=== PATIENT | female | born 1970 | race Caucasian/White ===

== ENCOUNTER → 2017-12-31 15:21 | Outpatient (CLI) | payer MEDICARE, SELFPAY ==
--- NOTE | 2017-12-31 15:23 | BI_ITS ---
MAMMOGRAPHY - BILATERAL SCREENING REASON FOR EXAM: Female, 47 years old. Routine annual screening examination. PERTINENT HISTORY: Non-contributory. TECHNIQUE: Digital bilateral breast darin (3D mammographic acquisition) in the CC and MLO projections. 2-D mediolateral oblique (MLO) and craniocaudad (CC) views of both breasts were obtained. CAD: Full Field Digital Mammography with Computer Added Detection was performed. COMPARISON: Comparison is made with prior study dated October 28, 2016 and October 28, 2015. FINDINGS: Breast Composition: There are scattered areas of fibroglandular density. There are no dominant masses or suspicious calcifications. No other significant abnormalities are identified. There has been no significant change since the prior study. BI/SCREENING MAMM (CAD), BILAT IMPRESSION: Stable bilateral screening mammogram. Yearly follow-up mammogram recommended. (A) ASSESSMENT CATEGORY: BIRADS Category 1: Negative. A letter regarding these results will be sent to the patient by the facility within 30 days. Approximately 10% of breast cancers are not detected by mammography. A normal mammogram should not delay biopsy of a clinically suspicious abnormality. [id number] Electronically Signed: Jhon Gonzalez MD at 8:12 EDT Tel [phone], Service support ,
== END ==
DX: Z12.31 Encounter for screening mammogram for malignant neoplasm of breast (principal)
CPT/HCPCS: 77063; 77067

== ENCOUNTER 2018-03-19 23:32 | Emergency (ER) | payer MEDICARE, SELFPAY ==
[2018-03-19 23:34] VITALS: BP 130/74; PULSE 81; RESP 16; TEMP 37.1; O2SAT 97; BMI 34.8
[2018-03-19 23:45] VITALS: BP 119/66; PULSE 77; RESP 12; O2SAT 96; O2SAT 97
--- NOTE | 2018-03-20 00:09 | RAD_ITS ---
STUDY: X-RAY CHEST REASON FOR EXAM: Female, 47 years old. Chest pain and shortness of breath TECHNIQUE: AP COMPARISON: 04/24/2017 FINDINGS: EKG leads project over the chest. The lungs are clear and expanded. There is no demonstrated pleural abnormality. Normal size heart. Normal mediastinum and dusty. Normal visualized pulmonary arteries. Normal visualized aortic arch and descending thoracic aorta. Normal visualized thoracic spine. Normal visualized ribs, clavicles, and shoulders. There is no demonstrated abnormality of the visualized soft tissue structures of the upper abdomen. RAD/Chest 1 View (Portable) IMPRESSION: Stable, nonacute portable x-ray examination of the chest. Electronically Signed: Gilmer Salgado MD at 0:36 EST , Service support ,
--- NOTE | 2018-03-20 00:09 | EKG12_ITS ---
Test Reason : RECURRENT CP,SOB Blood Pressure : / mmHG Vent. Rate : 077 BPM Atrial Rate : 077 BPM P-R Int : 140 ms QRS Dur : 084 ms QT Int : 382 ms P-R-T Axes : 026 -11 016 degrees QTc Int : 432 ms Normal sinus rhythm Normal ECG Confirmed by ONEAL PAZ, JAYCE ([id number]), news videotape editor JANINE IRELAND ([id number]) on 03/21/2018 1:53:24 PM Referred By: PARESH Confirmed By:JAYCE NO MD
--- NOTE | 2018-03-20 00:18 | ED.VISSUMM ---
- ER Visit Summary Date of Service: 03/20/18 Chief Complaint: Shortness of breath History of Present Illness: The patient is a 47 F presenting with shortness of breath. She states it started today. She also been having intermittent left-sided chest pain. This is worse with coughing. She denies fever. She has had a dry cough. She has a history of asthma. She states she does not currently have an inhaler. She has had no recent steroids. No history of past hospitalizations for asthma. She has history of hypertension, no other CAD risk factors. No PE/DVT risk factors. She is not a smoker. Physical Examination: Vitals are stable. Patient is afebrile. Alert no acute distress. HEENT exam is unremarkable. Neck is supple. Lungs are clear and equal bilaterally. Left chest tender to palpation with no crepitus Heart is regular rate and rhythm. Abdomen is soft nontender nondistended. Extremities are unremarkable. Skin is warm and dry. No focal neurologic deficit. Remainder of exam is unremarkable. Emergency Department Course and Treatment: Patient was given aspirin on arrival. She was given duoneb aerosol. EKG is sinus rate of 77 with no acute ischemic changes. Chest x-ray shows no acute process. CBC, chemistries unremarkable. Troponin is negative. D-dimer is negative. Delta troponin is negative. On repeat evaluation, patient is resting comfortably. She is given albuterol MDI for home. She is advised to follow-up with her primary care physician. Advised return to the ED for worsening complaints. Disposition: Discharge home Impression: Atypical chest pain This note was generated with Med Access dictation software. It may contain incorrect words, spelling, and punctuation that were not noted in review of the chart prior to signing ED Disposition - Plan for ED Patient: Chief Complaint: Shortness of Breath Instructions: ED Chest Pain Atypical Unkn Cause Referrals: Pawan Beltran,Salma Patterson [Primary Care Provider] -
--- NOTE | 2018-03-20 00:21 | ED.DCSUM_ITS ---
- ER Visit Summary Date of Service: 03/20/18 Chief Complaint: Shortness of breath History of Present Illness: The patient is a 47 F presenting with shortness of breath. She states it started today. She also been having intermittent left- sided chest pain. This is worse with coughing. She denies fever. She has had a dry cough. She has a history of asthma. She states she does not currently have an inhaler. She has had no recent steroids. No history of past hospitalizations for asthma. She has history of hypertension, no other CAD risk factors. No PE/DVT risk factors. She is not a smoker. Physical Examination: Vitals are stable. Patient is afebrile. Alert no acute distress. HEENT exam is unremarkable. Neck is supple. Lungs are clear and equal bilaterally. Left chest tender to palpation with no crepitus Heart is regular rate and rhythm. Abdomen is soft nontender nondistended. Extremities are unremarkable. Skin is warm and dry. No focal neurologic deficit. Remainder of exam is unremarkable. Emergency Department Course and Treatment: Patient was given aspirin on arrival. She was given duoneb aerosol. EKG is sinus rate of 77 with no acute ischemic changes. Chest x-ray shows no acute process. CBC, chemistries unremarkable. Troponin is negative. D-dimer is negative. Delta troponin is negative. On repeat evaluation, patient is resting comfortably. She is given albuterol MDI for home. She is advised to follow-up with her primary care physician. Advised return to the ED for worsening complaints. Disposition: Discharge home Impression: Atypical chest pain This note was generated with [employer] dictation software. It may contain incorrect words, spelling, and punctuation that were not noted in review of the chart prior to signing ED Disposition - Plan for ED Patient: Chief Complaint: Shortness of Breath Instructions: ED Chest Pain Atypical Unkn Cause Referrals: Pawan Beltran,Salma Patterson [Primary Care Provider] -
[2018-03-20 00:25] VITALS: O2SAT 95
[2018-03-20] MEDS: Aspirin 81 MG TAB.CHEW 324 MG PO (00:25)
[2018-03-20 00:28] VITALS: PULSE 78; RESP 18; O2SAT 98
[2018-03-20] MEDS: Ipratropium/Albuterol Sulfate 3 ML AMPUL.NEB INHALATION (00:28)
[2018-03-20 00:33] LABS: Absolute Lymphocyte Count 3.21 X10^3/ul (0.83-4.51); Absolute Neutrophil Count 5.2 X10^3/uL (2.0-7.7); Basophil# 0.04 X10^3/uL; Basophil% 0.4 % (0-1); Eosinophils% 1.1 % (0-5); Hematocrit 34.8 % (37-47); Hemoglobin 11.5 g/dl (12.0-15.0); Lymphocyte # 3.21 X10^3/ul (4.0); Lymphocyte % 34.6 % (19-41); Mean Corpuscular Hgb 28.3 pg (27.0-32.0); Mean Corpuscular Volume 85.5 fL (81-99); Mean Platelet Vol. 10.7 fl (6.2-12.0); Monocyte# 0.76 X10^3/uL; Monocyte% 8.2 % (0-10); Neutrophil # 5.15 X10^3/uL (2.7-7.7); Neutrophil % 55.6 % (47-70); POSITIVE COUNT NO; POSITIVE DIFFERENTIAL NO; POSITIVE MORPHOLOGY NO; Platelet Count 301 K/mm3 (150-450); RBC Distribution Width CV 13.1 % (11.6-14.6); Red Blood Count 4.07 M/mm3 (4.2-5.4); White Blood Count 9.3 K/mm3 (4.4-11.0)
[2018-03-20 00:44] LABS: D-Dimer Quantitative (DVT/PE) 0.46 FEU/ug/m (0.27-0.49)
[2018-03-20 01:00] LABS: BUN 14 mg/dL (7-18); BUN/Creat Ratio 16.1 RATIO (10-20); Calcium,Total 8.4 mg/dL (8.5-10.1); Creatinine, Serum 0.87 mg/dL (0.55-1.02); EST Glomerular Filtration Rate 74 mL/min (>60); Est Glom Filt Rate - Afr Amer 90 mL/min (>60); Estimated Creatinine Clearance 80.64 ml/min; Glucose 106 mg/dL (74-106); Sodium Level 139 mmol/L (136-145)
[2018-03-20 01:01] LABS: Anion Gap 7 (5-15); Chloride 106 mmol/L (98-107); Potassium 3.7 mmol/L (3.5-5.1)
[2018-03-20 01:02] VITALS: BP 132/74; PULSE 86; RESP 22; O2SAT 93
[2018-03-20 03:06] VITALS: BP 120/74; PULSE 81; RESP 18; O2SAT 98
--- NOTE | 2018-03-20 03:59 | ED.DEP ---
ED Disposition - Plan for ED Patient: Chief Complaint: Shortness of Breath Instructions: ED Chest Pain Atypical Unkn Cause Referrals: Salma Hazel [Primary Care Provider] -
[2018-03-20 04:16] VITALS: BP 119/82; PULSE 71; RESP 14; O2SAT 96
== END 2018-03-20 04:18 | disposition home or self-care (01) ==
PROVIDERS: Emergency Provider Emergency Medicine
DX: R07.89 Other chest pain (principal)
CPT/HCPCS: 71045; 80048; 84484; 85025; 85379; 93005; 94640; 99284; A4216

== ENCOUNTER 2018-05-21 22:18 | Emergency (ER) | payer MEDICARE, SELFPAY ==
[2018-05-21 22:19] VITALS: BP 120/85; PULSE 83; RESP 16; TEMP 36.8; O2SAT 98; BMI 37.5
--- NOTE | 2018-05-21 22:34 | RAD_ITS ---
HISTORY: Fall, RT AXILLARY PAIN, LOW RIBS COMPARISON: None FINDINGS: # of images incl. paperwork: 5 XR Ribs Unilateral W/ PA Chest Min 3 Views: LINES/DEVICES: None. LUNGS: Radiographically clear. No consolidation, edema or effusion. No pneumothorax. MEDIASTINUM AND CARDIOVASCULAR STRUCTURES: Cardiac silhouette not enlarged. Central airways and mediastinal contour are unremarkable. RIBS AND OSSEOUS STRUCTURES: Unremarkable. No fractures. RAD/Ribs Uni Min 3V w/PA Chest IMPRESSION: Negative chest and ribs series. at 0025 Reported and signed by: Leighton Silveira MD Electronically Signed: Leighton Silveira, at 0:24 EST Tel , Service support ,
--- NOTE | 2018-05-21 22:35 | RAD_ITS ---
HISTORY: FFall 2 DAYS AGO COMPARISON: None FINDINGS: # of images incl. paperwork: 3 XR Sacrum/Coccyx Min 2 Views: 3 views. SACRUM/COCCYX: No displaced fracture, destructive or sclerotic lesions. Note that overlapping bowel shadows may however obscure fine detail in the frontal view. SACRO-ILIAC JOINTS: The articular structures are unremarkable. SOFT TISSUES: Pelvic surgical clips. No acute findings. RAD/Sacrum-Coccyx min 2 Views IMPRESSION: Unremarkable sacro-coccygeal spine. at 0026 Reported and signed by: Leighton Silveira MD Electronically Signed: Leighton Silveira, at 0:25 EST Tel , Service support ,
--- NOTE | 2018-05-21 23:21 | ED.DCSUM_ITS ---
- ER Visit Summary Date of Service: 05/21/18 Chief Complaint: Fall History of Present Illness: The patient is a 48 F who presents after a fall. She fell 2 days ago. She was walking down steps and she had a wet rubber boots on. She slipped and fell into a seated position. She also believes she hit her right ribs on the wall. She did not fall down the steps. She has been able to ambulate since that time. He complains of progressive pain at her tailbone. It is painful to sit. She also complains of pain in the right lower chest. She has not short of breath. Chest pain is worse with deep breathing. No fevers nausea vomiting. No abdominal pain. No headache. She has not anticoagulated. Physical Examination: Afebrile vitals normal GCS of 15 with no focal or lateralizing neurological deficits Neck nontender Heart regular rate and rhythm Lungs are clear with equal breath sounds she does have right lower anterior chest tenderness no crepitus Abdomen soft nontender nondistended Active full range of motion x4 extremities Patient has focal tenderness over the coccyx Test Results: Sacrum and coccyx rib x-ray was read as unremarkable. Ribs and PA chest x-ray read as negative. Emergency Department Course and Treatment: On my review I was concerned for possible fracture at the distal tip of the coccyx but this was read as negative by radiology. Regardless treatment is supportive. She was advised on supportive care. She was given a prescription for short course of analgesics. She understands return for new or worsening symptoms. Patient agreeable to this plan was discharged home. Treatment Plan: [] Disposition: Discharge Impression: Coccyx contusion Chest contusion This note was generated with [employer] dictation software. It may contain incorrect words, spelling, and punctuation that were not noted in review of the chart prior to signing ED Disposition - Plan for ED Patient: Referrals: Salma Hazel [Primary Care Provider] -
--- NOTE | 2018-05-22 00:34 | ED.DEP ---
ED Disposition - Plan for ED Patient: Instructions: ED Contusion Sacrum Coccyx, ED Contusion Rib Prescriptions: Hydrocodone Bitart/Apap 5-325 [[place] 5MG-325MG] 1 tab PO Q6H PRN PRN 3 Days #12 tab PRN Reason: Pain Referrals: [facility],Salma Patterson [Primary Care Provider] -
[2018-05-22 00:59] VITALS: BP 125/74; PULSE 68; RESP 18
== END 2018-05-22 01:01 | disposition home or self-care (01) ==
LOC: ED 23:08
PROVIDERS: Emergency Provider Emergency Medicine
DX: S30.0XXA Contusion of lower back and pelvis, initial encounter (principal); S20.211A Contusion of right front wall of thorax, initial encounter; W10.9XXA Fall (on) (from) unspecified stairs and steps, initial encounter; Y93.01 Activity, walking, marching and hiking; Y92.9 Unspecified place or not applicable; I10 Essential (primary) hypertension; F32.9 Major depressive disorder, single episode, unspecified; Z79.899 Other long term (current) drug therapy
CPT/HCPCS: 71101; 72220; 99282

== ENCOUNTER 2018-07-30 20:41 | Emergency (ER) | payer MEDICARE, SELFPAY ==
[2018-07-30 20:42] VITALS: BP 135/88; PULSE 81; RESP 16; TEMP 37; O2SAT 100; BMI 37.6
--- NOTE | 2018-07-30 21:14 | ED.VISSUMM ---
- ER Visit Summary Date of Service: 07/30/18 Chief Complaint: Right ear pain History of Present Illness: The patient is a 48 F presenting with right ear pain. She states this started on Wednesday. She was seen by her doctor yesterday. She was prescribed a nasal spray. She states she is unable to fill this until she gets paid tomorrow. She denies fever. Denies sinus pressure. Denies sore throat. Denies other complaints. Physical Examination: Vitals are stable. Patient is afebrile. Alert no acute distress. HEENT exam is unremarkable. TMs normal bilaterally. Her ear canals are narrow, symmetric bilaterally. She has no pain with movement of the tragus. No mastoid tenderness. Neck is supple. No meningismus Lungs are clear and equal bilaterally. Heart is regular rate and rhythm. Extremities are unremarkable. Skin is warm and dry. No focal neurologic deficit. Remainder of exam is unremarkable. Emergency Department Course and Treatment: Patient is given Mucinex D. She is advised to follow-up with her primary care physician. Advised return to ED if worsening complaints. Disposition: Discharge home Impression: Right ear pain This note was generated with [employer] dictation software. It may contain incorrect words, spelling, and punctuation that were not noted in review of the chart prior to signing ED Disposition - Plan for ED Patient: Referrals: Salma Hazel [Primary Care Provider] -
--- NOTE | 2018-07-30 21:17 | ED.DEP ---
ED Disposition - Plan for ED Patient: Instructions: ED Otitis Media Serous Adult Prescriptions: Guaifenesin/Pseudoephedrne HCl [Mucinex D ER 1,200-120 mg Tab] 1 each PO BID #14 tab.er.[id number] Referrals: Salma Hazel [Primary Care Provider] -
[2018-07-30 21:40] VITALS: O2SAT 98
== END 2018-07-30 21:41 | disposition home or self-care (01) ==
PROVIDERS: Emergency Provider Emergency Medicine; Referring Provider Nurse Practitioner Family
DX: H92.01 Otalgia, right ear (principal); I10 Essential (primary) hypertension; F32.9 Major depressive disorder, single episode, unspecified; Z79.899 Other long term (current) drug therapy
CPT/HCPCS: 99282

== ENCOUNTER 2018-08-01 14:46 | Emergency (ER) | payer MEDICARE, MEDICAID, SELFPAY ==
[2018-08-01 14:47] VITALS: BP 107/65; PULSE 90; RESP 16; TEMP 36.6; O2SAT 96; BMI 37.3
--- NOTE | 2018-08-01 14:52 | RAD_ITS ---
STUDY: X-RAY - LEFT ANKLE REASON FOR EXAM: Rolled ankle. TECHNIQUE: 3 view(s) of the ankle. COMPARISON: Radiographs 07/08/2016. FINDINGS: Normal visualized distal tibia and fibula. Normal medial and lateral malleoli. Normal tibiotalar articulation and ankle mortise. There is a very small plantar calcaneal enthesophyte. The visualized subtalar, talonavicular, calcaneocuboid and tarsal articulations are normal. The soft tissue structures are unremarkable. RAD/Ankle min 3 Views IMPRESSION: Very small plantar calcaneal enthesophyte. Otherwise, unremarkable x-ray examination of the left ankle. Electronically Signed: Michael Rubio MD at 15:23 EDT Tel , Service support ,
--- NOTE | 2018-08-01 16:33 | ED.VISSUMM ---
- ER Visit Summary Date of Service: 08/01/18 Chief Complaint: Left ankle pain and swelling after falling History of Present Illness: The patient is a 48 F past medical history of hypertension depression. Today she was walking in her home she accidentally stepped on a daily and that role in causing her to twist her left ankle inverted and then fall to the floor. Complaining of pain to her left lateral ankle. Says she is unable to bear weight. No prior history or surgery to the left lower leg or ankle. Denies hitting her head. She did land on her left forearm. Physical Examination: Middle-aged female. Hallway chair. Vital signs are stable. Afebrile. HEENT exam atraumatic. Nontender. T-spine nontender. Trachea midline. Lungs clear to auscultation bilaterally. Heart regular rhythm no murmur. Chest wall nontender. Back and spine are nontender. Abdomen is soft and nontender. Pelvic girdle intact. Right upper and right lower extremities are unremarkable. She has a small contusion in her left forearm. She has full flexion-extension internal and external rotation of the left shoulder, full range of motion nontender left elbow and nontender normal range of motion left wrist. She has normal welder boilermaker strength in left hand with a normal radial pulse. Normal sensation. No bony deformity. Left hip and knee are nontender normal range of motion. Left ankle has mild swelling left lateral malleolus. Mild abrasion. There is no gross bony deformity. Dorsi plantar flexion intact. Deep pulse intact. She is able to wiggle her toes. No gross bony deformity or tenderness to her foot. Normal touch sensation. Achilles tendon is intact. The medial malleolus is nontender nonswollen. Neurologically she is awake alert with no focal motor deficits. Test Results: Left ankle x-ray x3 read both by myself and radiologist shows no acute abnormality. Chronic changes. No fracture or dislocation. Emergency Department Course and Treatment: Patient be discharged home with an Aircast and crutches. Treatment Plan: Ice and elevate. Motrin for pain and swelling. Increase activity as tolerated. Follow-up with starts from his clinic if not improving in 1 week. Disposition: Discharge Impression: Acute fall Left ankle sprain. This note was generated with [employer] dictation software. It may contain incorrect words, spelling, and punctuation that were not noted in review of the chart prior to signing ED Disposition - Plan for ED Patient: Referrals: Pawan Beltran,Salma Patterson [Primary Care Provider] -
--- NOTE | 2018-08-01 16:36 | ED.DCSUM_ITS ---
- ER Visit Summary Date of Service: 08/01/18 Chief Complaint: Left ankle pain and swelling after falling History of Present Illness: The patient is a 48 F past medical history of hypertension depression. Today she was walking in her home she accidentally stepped on a daily and that role in causing her to twist her left ankle inverted and then fall to the floor. Complaining of pain to her left lateral ankle. Says she is unable to bear weight. No prior history or surgery to the left lower leg or ankle. Denies hitting her head. She did land on her left forearm. Physical Examination: Middle-aged female. Hallway chair. Vital signs are stable. Afebrile. HEENT exam atraumatic. Nontender. T-spine nontender. Trachea midline. Lungs clear to auscultation bilaterally. Heart regular rhythm no murmur. Chest wall nontender. Back and spine are nontender. Abdomen is soft and nontender. Pelvic girdle intact. Right upper and right lower extremities are unremarkable. She has a small contusion in her left forearm. She has full flexion-extension internal and external rotation of the left shoulder, full range of motion nontender left elbow and nontender normal range of motion left wrist. She has normal linux devops engineer strength in left hand with a normal radial pulse. Normal sensation. No bony deformity. Left hip and knee are nontender normal range of motion. Left ankle has mild swelling left lateral malleolus. Mild abrasion. There is no gross bony deformity. Dorsi plantar flexion intact. Deep pulse intact. She is able to wiggle her toes. No gross bony deformity or tenderness to her foot. Normal touch sensation. Achilles tendon is intact. The medial malleolus is nontender nonswollen. Neurologically she is awake alert with no focal motor deficits. Test Results: Left ankle x-ray x3 read both by myself and radiologist shows no acute abnormality. Chronic changes. No fracture or dislocation. Emergency Department Course and Treatment: Patient be discharged home with an Aircast and crutches. Treatment Plan: Ice and elevate. Motrin for pain and swelling. Increase activity as tolerated. Follow-up with starts from his clinic if not improving in 1 week. Disposition: Discharge Impression: Acute fall Left ankle sprain. This note was generated with [employer] dictation software. It may contain incorrect words, spelling, and punctuation that were not noted in review of the chart prior to signing ED Disposition - Plan for ED Patient: Referrals: Pawan Beltran,Salma Patterson [Primary Care Provider] -
--- NOTE | 2018-08-01 16:36 | ED.DEP ---
ED Disposition - Plan for ED Patient: Disposition: Home or Assisted Living Instructions: ED Sprain Ankle W X Ray Referrals: Pawan Beltran,Salma Patterson [Primary Care Provider] - 1 Week if not improving Additional Instructions: Ice and elevate. To decrease pain and swelling. Motrin for pain and swelling. Aircast to walk. Crutches for nonweightbearing. Start with nonweightbearing and then increase activity and weightbearing as tolerated. Follow-up if not improving in 1 week.
[2018-08-01 17:26] VITALS: BP 112/78; PULSE 90; RESP 16; O2SAT 98
== END 2018-08-01 17:28 | disposition home or self-care (01) ==
PROVIDERS: Emergency Provider Emergency Medicine
DX: S93.402A Sprain of unspecified ligament of left ankle, initial encounter (principal); S50.12XA Contusion of left forearm, initial encounter; I10 Essential (primary) hypertension; F32.9 Major depressive disorder, single episode, unspecified; Z79.899 Other long term (current) drug therapy; X50.1XXA Overexertion from prolonged static or awkward postures, initial encounter; Y93.01 Activity, walking, marching and hiking; Y92.009 Unspecified place in unspecified non-institutional (private) residence as the place of occurrence of the external cause; Y99.8 Other external cause status
CPT/HCPCS: 73610; 99283

== ENCOUNTER 2018-08-13 18:56 | Emergency (ER) | payer MEDICARE, MEDICAID, SELFPAY ==
[2018-08-13 18:56] VITALS: BP 105/87; PULSE 89; RESP 16; TEMP 37.1; O2SAT 98; BMI 37.5
[2018-08-13 19:04] VITALS: BP 113/91; PULSE 88; RESP 22; O2SAT 98
--- NOTE | 2018-08-13 19:58 | RAD_ITS ---
STUDY: X-RAY CHEST REASON FOR EXAM: Female, 48 years old. Cough and shortness breath. TECHNIQUE: Frontal and lateral views of the chest. COMPARISON: 05/21/2018. FINDINGS: The lungs are clear and expanded. There is no demonstrated pleural abnormality. Normal size heart. Normal mediastinum and dusty. Normal visualized pulmonary arteries. Normal visualized aortic arch and descending thoracic aorta. Normal visualized thoracic spine. Normal visualized ribs, clavicles, and shoulders. There is no demonstrated abnormality of the visualized soft tissue structures of the upper abdomen. RAD/Chest PA and Lateral IMPRESSION: Normal x-ray examination of the chest. Electronically Signed: Lew Jensen MD at 20:41 EDT , Service support ,
--- NOTE | 2018-08-13 19:59 | ED.VISSUMM ---
- ER Visit Summary Date of Service: 08/13/18 Chief Complaint: Shortness of breath and cough History of Present Illness: The patient is a 48 F with history of asthma who presents for 1 week of intermittent shortness of breath and cough. Patient has been having shortness of breath with associated cough. She has pleuritic chest pain and headache with it. She will have days where she feels well and then the next days where she feels unwell. She saw her primary care doctor 2 days ago and was prescribed medications, including an antibiotic, but the patient did not fill or start yet. She has an albuterol inhaler at home. She denies fever, abdominal pain, nausea or vomiting, diarrhea or other complaints. Physical Examination: Vital signs: afebrile, hemodynamically stable, no hypoxia on room air General: well nourished, well developed, in no distress Skin: warm, dry, no rash, no pallor HEENT: normocephalic and atraumatic; PERRL, EOMI, moist mucous membranes, frequent dry cough Cardiovascular: regular rate and rhythm without murmurs, no peripheral edema, 2+ pulses all distal extremities Respiratory: No increased work of breathing, lungs are clear to auscultation bilaterally but diminished, no rales, rhonchi or wheezing Abdominal: Abdomen is soft, nontender with normoactive bowel sounds, no guarding or rebound, no masses MSK: Moves all extremities, no deformities, normal strength Neuro: Awake and alert, oriented ?4. No facial droop, sensation and motor function intact and symmetric Test Results: Clinical Impression(s) from Imaging Studies Chest X-Ray 08/13/18 19:58 IMPRESSION: Normal x-ray examination of the chest. Electronically Signed: Lew Jensen MD at 20:41 EDT , Service support , Medications Given Discontinued Medications Albuterol Sulfate (Ventolin Aerosols) 2.5 mg INHALATION Q20M [facility] Stop: 08/13/18 20:41 Last Admin: 08/13/18 20:33 Dose: Not Given Admin: 08/13/18 20:08 Dose: 2.5 mg Admin: 08/13/18 20:08 Dose: 2.5 mg Albuterol/Ipratropium (Duoneb) 3 ml INHALATION X1 ONE Stop: 08/13/18 19:59 Last Admin: 08/13/18 20:08 Dose: 3 ml Prednisone () 60 mg PO X1 ONE Stop: 08/13/18 19:59 Last Admin: 08/13/18 20:17 Dose: 60 mg Emergency Department Course and Treatment: Patient presents for an ongoing cough and shortness of breath, and is already been evaluated by her doctor and prescribed treatment. She has not taken any of this treatment. Patient does have a history of asthma and was given a series of breathing treatments and a dose of prednisone. Chest x-ray showed no sign of pneumonia. She had no findings on her history or physical exam that were concerning for this being cardiac in nature, as the history is very strongly consistent with a respiratory infection and her physical exam is the same. On reevaluation, patient had great improvement of her symptoms and was no longer coughing. She had improved air movement with exam and no wheezing. Patient was given a prescription for prednisone burst. She was instructed to follow-up with doctors orders regarding the treatment she was given on . Patient is not sure what this is but knows that it was not including steroids. Patient is to follow-up with her doctor if any further concerns or worsening of her condition. Return precautions given. Patient discharged home in improved condition. Treatment Plan: [] Disposition: [] Impression: Acute viral respiratory infection in an asthmatic This note was generated with [employer] dictation software. It may contain incorrect words, spelling, and punctuation that were not noted in review of the chart prior to signing ED Disposition - Plan for ED Patient: Disposition: Home or Assisted Living Instructions: ED Bronchitis Asthmatic Prescriptions: Prednisone [Deltasone] 40 mg PO DAILY #10 tab Referrals: Salma Hazel [Primary Care Provider] - 3-5 Days if not improving Additional Instructions: Take the prednisone daily as prescribed. Follow your doctor's instructions that you were given last and take the medications you were prescribed. Use your albuterol inhaler as needed. If you have any worsening of your condition or any new concerning symptoms, please return immediately to the emergency department for another evaluation.
[2018-08-13 20:05] VITALS: PULSE 78; RESP 18
[2018-08-13] MEDS: Ipratropium/Albuterol Sulfate 3 ML AMPUL.NEB INHALATION (20:08)
[2018-08-13] MEDS: Albuterol 2.5 MG/3 ML VIAL.NEB. INHALATION ×2 (20:08)
[2018-08-13] MEDS: predniSONE 20 MG Tablet 60 MG PO (20:17)
--- NOTE | 2018-08-13 20:17 | EKG12_ITS ---
Test Reason : SOB Blood Pressure : / mmHG Vent. Rate : 086 BPM Atrial Rate : 086 BPM P-R Int : 128 ms QRS Dur : 076 ms QT Int : 348 ms P-R-T Axes : 034 -19 001 degrees QTc Int : 416 ms Normal sinus rhythm Normal ECG Confirmed by ONEAL PAZ, JAYCE ([id number]), associate entertainment editor GABRIEL KRISHNA ([id number]) on 08/16/2018 1:25:39 PM Referred By: BB Confirmed By:JAYCE NO MD
[2018-08-13 21:20] VITALS: BP 103/68; PULSE 96; RESP 18; O2SAT 98
== END 2018-08-13 21:21 | disposition home or self-care (01) ==
PROVIDERS: Emergency Provider Emergency Medicine
DX: J22 Unspecified acute lower respiratory infection (principal); J45.909 Unspecified asthma, uncomplicated; Z72.0 Tobacco use; Z79.51 Long term (current) use of inhaled steroids
CPT/HCPCS: 71046; 93005; 94640; 99282

== ENCOUNTER 2018-12-04 16:41 | Emergency (ER) | payer MEDICARE, SELFPAY ==
[2018-12-04 16:42] VITALS: BP 138/91; PULSE 104; RESP 16; TEMP 36.2; O2SAT 98; BMI 36.3
--- NOTE | 2018-12-04 16:55 | ED.VIS.LOWEX ---
History of Present Illness Chief Complaint: Wound Informant: Patient Occurred: Weeks - several Mechanism/Context: - - unknown Context: Gradual Onset Timing: Continuous Quality of Pain: Aching Current Severity: Severe Maximum Severity: Severe Worsened by: walking, palpation Relieved by: remaining still Associated Symptoms: Negative for: Parasthesia, Weakness, Loss of Funtion Narrative: Patient states she has a painful wound on her lateral right ankle. She has no idea how it got there but thinks it is been hurting her for weeks but now is become severe and she fears it is infected. She has had no discharge from the area. She had a friend for some peroxide on it and some antibiotic ointment. She has had no systemic symptoms or fevers. She is not a diabetic. She states it is swollen just at the area of pain and she can move her foot okay and walk but it hurts. She states she bruises very easily, got a bruise on the same leg today when she bumped into something, but she often gets bruises and does not not know where she got them from. - Past Medical History (1) Hypertension Status: Chronic (2) Depression Status: Chronic Past Medical History - Allergies and Home Meds Allergies/Adverse Reactions: Allergies No Known Allergies Allergy (Verified 12/04/18 16:42) Primary Care Physician: Salma Hazel [Primary Care Provider] - Lives: With Family Smoking Status: Never smoker Review of Systems General: Denies: Chills, Fever, Sweats Musculoskeletal: Reports: Swelling, Extremity Pain Skin: Reports: Abrasions, Wounds Neurological: Denies: Headache, Weakness, Numbness Physical Exam Vital Signs/Narrative: Vital Signs Temp Pulse Resp BP Pulse Ox 12/04/18 16:42 97.1 F L 104 H 16 138/91 H 98 Inital Vital Signs reviewed: Yes - Extremity Exam Right Ankle: Abrasion - At area of significant pain, mild-moderate tenderness, appears to be scabbed and without any discharge, fluctuance, or pointing/abscess. No petechia. No other skin of normality. No bony tenderness.. Negative for: Limited ROM General: Well nourished, Well developed, Obese, - - Well-appearing, NAD Skin: - - See above. Appears to be healing abrasion with minor erythema, there is no lymphangitis. There is some mild swelling posterior to the lateral malleolus that is tender but there is no fluctuance and it is not an abscess. Neurological: Alert, Oriented x3, Cranial nerves II-XII grossly intact, Normal Strength, Normal Sensation, Normal Gait Psychological: Normal affect, Normal Mood Diagnostic/Tx/Re-eval - Medical Decision Making Clinically this does not appear to be grossly infected, it appears to be a healing abrasion and she does not know how she got it. However with the amount of pain that she is describing I think it would be reasonable to put her on antibiotics empirically. There is nothing here to drain, her vital signs are unremarkable and she does not need any further work-up at this time. All compartments are soft in the right lower extremity, her calf is nontender. ED Disposition - Plan for ED Patient: Disposition: Home or Assisted Living Diagnosis: Ankle abrasion with infection Instructions: Wound Care Prescriptions: Cephalexin [Keflex] 500 mg PO 4X/DAY #28 cap Prescription Printed [facility]errals: [facility] [Primary Care Provider] - 3-5 Days if not improving
[2018-12-04] MEDS: Cephalexin 250 MG Capsule 500 MG PO (17:08)
== END 2018-12-04 17:14 | disposition home or self-care (01) ==
LOC: ED 17:04
PROVIDERS: Emergency Provider Emergency Medicine
DX: S90.511A Abrasion, right ankle, initial encounter (principal); L08.9 Local infection of the skin and subcutaneous tissue, unspecified; I10 Essential (primary) hypertension; E66.9 Obesity, unspecified; X58.XXXA Exposure to other specified factors, initial encounter; Y93.89 Activity, other specified; Y92.89 Other specified places as the place of occurrence of the external cause; Y99.8 Other external cause status
CPT/HCPCS: 99282

== ENCOUNTER 2018-12-18 12:51 | Emergency (ER) | payer MEDICARE, SELFPAY ==
[2018-12-18 12:52] VITALS: BP 110/69; PULSE 107; RESP 17; TEMP 36.8; O2SAT 94; BMI 36.8
--- NOTE | 2018-12-18 13:10 | RAD_ITS ---
STUDY: X-RAY - LEFT ANKLE REASON FOR EXAM: Female, 48 years old. Fall TECHNIQUE: History view(s) of the ankle. COMPARISON: None. FINDINGS: Normal visualized distal tibia and fibula. Normal medial and lateral malleoli. Normal tibiotalar articulation and ankle mortise. Normal visualized talus and calcaneus. The visualized subtalar, talonavicular, calcaneocuboid and tarsal articulations are normal. Soft tissue edema. RAD/Ankle min 3 Views IMPRESSION: No acute bony injury of the ankle. Electronically Signed: Domingo Zamoar DO at 13:47 EDT Tel [phone], Service support ,
--- NOTE | 2018-12-18 13:47 | ED.DCSUM_ITS ---
- ER Visit Summary Date of Service: 12/18/18 Chief Complaint: [Left ankle injury] History of Present Illness: The patient is a 48 F [resents to the emergency department after injuring her ankle last evening. Patient states she was coming out of her front door and she fell injuring her left ankle. Patient denies striking her head or loss of consciousness. She denies any other injuries. Patient has been able to bear some weight but has become very painful. Patient has history of hypertension and depression. She is not on any blood thinners.] Physical Examination: [HEENT-PERRLA, EOMI. Cranial nerves II through XII grossly intact. TMs clear. Mucous membranes moist. No adenopathy. Cardiovascular-regular rate and rhythm without murmur or ectopy Lungs-clear to auscultation, chest wall stable without crepitus or subcu emphysema Abdomen-normoactive bowel sounds, soft, nontender, no rebound or rigidity, no peritoneal signs. Extremities-intact ?4, normal range of motion, normal pulses. Left ankle- patient has soft tissue swelling over the lateral malleolus with tenderness to palpation. No pain at the proximal fibular head. No pain at the base of the fifth metatarsal. She is neurovascular intact distally.] Test Results: [X-rays of the left ankle read by myself as no acute fractures] Emergency Department Course and Treatment: [She was given an Aircast and crutches.] Treatment Plan: [Patient will be given a prescription for naproxen and advised to follow-up with her primary care physician in 7 days. Patient to return if worsening pain or condition should worsen anyway.] Disposition: [Discharged home in stable condition] Impression: [Mechanical fall Left ankle sprain] This note was generated with [employer] dictation software. It may contain incorrect words, spelling, and punctuation that were not noted in review of the chart prior to signing ED Disposition - Plan for ED Patient: Referrals: Salma Hazel [Primary Care Provider] -
--- NOTE | 2018-12-18 13:48 | ED.DEP ---
ED Disposition - Plan for ED Patient: Instructions: Sprain, Ankle, with X-Ray, FALL, Mechanical Prescriptions: Naproxen [Naprosyn] 500 mg PO BID PRN #20 tab Prescription Printed Referrals: Salma Hazel [Primary Care Provider] - 5-7 Days
[2018-12-18 14:07] VITALS: RESP 16
== END 2018-12-18 14:08 | disposition home or self-care (01) ==
LOC: ED 13:25
PROVIDERS: Emergency Provider Emergency Medicine
DX: S93.402A Sprain of unspecified ligament of left ankle, initial encounter (principal); F32.9 Major depressive disorder, single episode, unspecified; I10 Essential (primary) hypertension; Z79.899 Other long term (current) drug therapy; W18.30XA Fall on same level, unspecified, initial encounter; Y93.01 Activity, walking, marching and hiking; Y92.008 Other place in unspecified non-institutional (private) residence as the place of occurrence of the external cause; Y99.8 Other external cause status
CPT/HCPCS: 73610; 99282

== ENCOUNTER 2019-04-14 22:37 | Emergency (ER) | payer MEDICARE, MEDICAID, SELFPAY ==
[2019-04-14 22:38] VITALS: BP 105/84; PULSE 102; RESP 16; TEMP 36.9; O2SAT 99; BMI 38.1
--- NOTE | 2019-04-14 22:40 | EKG12_ITS ---
Test Reason : CP Blood Pressure : / mmHG Vent. Rate : 104 BPM Atrial Rate : 104 BPM P-R Int : 122 ms QRS Dur : 074 ms QT Int : 334 ms P-R-T Axes : 038 -01 019 degrees QTc Int : 439 ms Sinus tachycardia Possible Inferior infarct , age undetermined Cannot rule out Anterior infarct , age undetermined Abnormal ECG Confirmed by ONEAL PAZ, JAYCE ([id number]), marketing editor GABRIEL KRISHNA ([id number]) on 04/17/2019 12:57:41 PM Referred By: Tisha Magallon Confirmed By:JAYCE NO MD
--- NOTE | 2019-04-14 22:50 | RAD_ITS ---
STUDY: X-RAY CHEST REASON FOR EXAM: Female, 48 years old. CHEST PAIN WITH COUGH TECHNIQUE: Single AP portable view of the chest. COMPARISON: 08/13/2018 FINDINGS: The lungs are clear and expanded. There is no demonstrated pleural abnormality. Normal size heart. Normal mediastinum and dusty. Normal visualized pulmonary arteries. Normal visualized aortic arch and descending thoracic aorta. Mild degenerative changes of the thoracic spine. Normal visualized ribs, clavicles, and shoulders. There is no demonstrated abnormality of the visualized soft tissue structures of the upper abdomen. RAD/Chest 1 View (Portable) IMPRESSION: No acute cardiopulmonary disease. No significant interval change. Electronically Signed: Jacque Mobley MD at 23:18 EST , Service support ,
[2019-04-14 23:01] LABS: Absolute Lymphocyte Count 3.55 X10^3/uL (0.83-4.51); Basophil# 0.08 X10^3/uL; Basophil% 0.7 % (0-1); Eosinophil# 0.72 X10^3/uL; Eosinophils% 5.9 % (0-5); Hematocrit 42.9 % (37-47); Hemoglobin 13.9 g/dL (12.0-15.0); Lymphocyte # 3.55 X10^3/ul (4.0); Lymphocyte % 29.1 % (19-41); Mean Corp Hgb Conc 32.4 g/dL (32-36); Mean Corpuscular Hgb 28.4 pg (27.0-32.0); Mean Corpuscular Volume 87.7 fL (81-99); Mean Platelet Vol. 10.3 fl (6.2-12.0); Monocyte# 0.79 X10^3/uL; Monocyte% 6.5 % (0-10); NRBC Flagged by Analyzer 0 % (0-5); Neutrophil # 6.99 X10^3/uL (2.7-7.7); Neutrophil % 57.4 % (47-70); Platelet Count 324 K/mm3 (150-450); RBC Distribution Width CV 13.2 % (11.6-14.6); RBC Distribution Width SD 42.2 fl (35.1-43.9); Red Blood Count 4.89 M/mm3 (4.2-5.4); White Blood Count 12.2 K/mm3 (4.4-11.0)
[2019-04-14 23:18] LABS: Anion Gap 7 (5-15); BUN 7 mg/dL (7-18); BUN/Creat Ratio 8.6 RATIO (10-20); Calcium,Total 8.8 mg/dL (8.5-10.1); Chloride 108 mmol/L (98-107); Creatinine, Serum 0.81 mg/dL (0.55-1.02); EST Glomerular Filtration Rate 79 mL/min (>60); Est Glom Filt Rate - Afr Amer 96 mL/min (>60); Estimated Creatinine Clearance 76.43 ml/min; Glucose 111 mg/dL (74-106); Sodium Level 138 mmol/L (136-145)
[2019-04-15 00:04] VITALS: BP 115/77; PULSE 92; RESP 12; O2SAT 97; O2SAT 99
[2019-04-15] MEDS: Ketorolac 15 MG/ML Vial IV (00:09)
[2019-04-15 00:23] LABS: D-Dimer Quantitative (DVT/PE) 0.57 FEU/ug/m (0.27-0.49)
--- NOTE | 2019-04-15 00:28 | CT_ITS ---
STUDY: CTA CHEST REASON FOR EXAM: Female, 48 years old patient with elevated d-dimer RADIATION DOSAGE (If Supplied By Facility): CTDIvol = ( 27.7 ) mGy, DLP = ( 441.21 ) mGycm TECHNIQUE: The examination was performed with the intravenous administration of 75 ml of Isovue 370. Post-processing of the angiographic images was performed, with multiplanar reformation and 3D reconstruction. Individualized dose optimization techniques were used for this CT. COMPARISON: Prior comparison studies are not available for review at this time. FINDINGS: Cardiac monitoring leads are present. There is limited enhancement of the main pulmonary artery and right and left pulmonary arteries. There is limited enhancement of the bilateral peripheral pulmonary arteries. There is no demonstrated pulmonary embolism. Normal thoracic aorta and visualized great vessels. There is no demonstrated aortic dissection. Normal heart and pericardium. Normal mediastinum. Normal hilar regions. Normal visualized trachea and bronchi. The lungs are well expanded. Normal pulmonary parenchyma. Normal pleura. Normal chest wall structures. Normal osseous structures. Normal visualized upper abdomen. CT/CTA Chest W/WO Contrast IMPRESSION: 1. No CTA chest demonstrated large or central pulmonary embolism or arterial dissection. 2. Limited enhancement precludes exclusion of segmental pulmonary emboli. Electronically Signed: Mary Mccoy MD at 1:54 EST , Service support ,
--- NOTE | 2019-04-15 02:07 | ED.DCSUM_ITS ---
History of Present Illness Chief Complaint: Chest Pain Informant: Patient Narrative: Patient presenting for evaluation secondary to chest pain. Patient reports that since yesterday she has been dealing with chest pain. Is been a continuous type pain that is reproducible with taking a deep breath and pushing on it. Patient does state that she was feeling somewhat short of breath associated with this. This evening it seemed that the pain got worse and sharper so she came to the emergency department for further evaluation. Patient denies any prior similar episodes in the past. She denies any underlying medical history she is a non- smoker. She denies any DVT or PE risk factors. She denies any recent illness such as fever cough. Review of systems otherwise negative. Past Medical History - Allergies and Home Meds Allergies/Adverse Reactions: Allergies No Known Allergies Allergy (Verified 12/18/18 12:52) Primary Care Physician: Salma Hazel [Primary Care Provider] - Past Medical History: None Smoking Status: Never smoker Review of Systems All systems negative except as indicated General: Denies: Chills, Fever, Sweats Eyes: Denies: Visual changes - bilaterally, Diplopia ENT: Denies: Rhinorrhea, Sore throat Cardiovascular: Reports: Chest pain Respiratory: Denies: Dyspnea, Cough, Dyspnea on exertion Gastrointestinal: Denies: Abdominal pain, Nausea, Vomiting, Diarrhea, Melena, Hematochezia Genitourinary: Denies: Dysuria, Hematuria, Frequency Musculoskeletal: Denies: Back pain, Extremity Pain Skin: Denies: Rash, Wounds Neurological: Denies: Headache, Weakness, Numbness Physical Exam Vital Signs/Narrative: Vital Signs Temp Pulse Resp BP Pulse Ox 04/15/19 00:04 92 12 115/77 97 04/14/19 22:38 98.5 F 102 H 16 105/84 H 99 Inital Vital Signs reviewed: Yes General: Well nourished, Well developed, No Acute Distress Head: Normocephalic, Atraumatic Eyes: Perrl, EOMI ENT: Moist mucous membranes, No rhinorrhea Neck: Supple, Nontender Cardiovascular: Regular rhythm, No murmurs, Tachycardia Respiratory: Chest tenderness - Left anterior without any evidence of crepitus step-off or flail chest Abdomen: Soft, Nontender, Nondistended, Normal bowel sounds Back: Nontender, Normal Inspection Extremities: Nontender, No edema Skin: Normal color, No rash Neurological: Alert, Oriented x3, Cranial nerves II-XII grossly intact, Normal Strength, Normal Sensation Psychological: Normal affect, Normal Mood Diagnostic/Tx/Re-eval - EKG Initial EKG Interpretation: - - Sinus tachycardia with a ventricular rate of 104. Isoelectric ST segments normal T waves. Inferior Q waves that are old from a prior EKG in August of this year. - Medical Decision Making Patient presented for evaluation secondary to chest pain. CBC chemistry troponin were unremarkable. Due to the patient's tachycardia she could not be ruled out, so a d-dimer was obtained was found to be elevated. CT angiogram of the chest was obtained and was negative for acute pathology. Patient's heart score is low risk, I do not feel that she requires admission. Patient likely has an element of musculoskeletal pain given its reproducibility with palpation. Patient be placed on a course of Naprosyn. She was discharged in stable condition. ED Disposition - Plan for ED Patient: Disposition: Home or Assisted Living Diagnosis: Chest wall pain Instructions: CHEST WALL PAIN, Costochondritis Prescriptions: Naproxen [Naprosyn] 500 mg PO BID PRN #20 tab Prescription Printed Referrals: [facility] Sal[facility] Beltran [Primary Care Provider] - 1 Week
[2019-04-15 02:49] VITALS: BP 107/75; PULSE 90; RESP 18; O2SAT 96
== END 2019-04-15 02:53 | disposition home or self-care (01) ==
PROVIDERS: Emergency Provider Emergency Medicine; Referring Provider Nurse Practitioner Family
DX: R07.89 Other chest pain (principal)
CPT/HCPCS: 71045; 71275; 80048; 84484; 85025; 85379; 93005; 96374; 99285; Q9967; A4216

== ENCOUNTER 2019-06-11 19:11 | Emergency (ER) | payer MEDICARE, SELFPAY ==
[2019-06-11 19:12] VITALS: BP 114/84; PULSE 90; RESP 15; TEMP 36.8; O2SAT 96; BMI 39.1
--- NOTE | 2019-06-11 19:35 | ED.VIS.GEN ---
History of Present Illness Chief Complaint: Other, Pain/Inj Detail of Chief Complaint: Possible wound infection Informant: Patient Onset: Days Current Severity: Mild Maximum Severity: Moderate Narrative: Patient states she had 2 skin tags frozen at the [facility]. This was performed on May 30. Patient states the one along her waistband area is healing well. There is one on the inner right upper arm that still has central scab and some mild surrounding erythema. It is tender to touch and she wanted to have it checked. She has not noted any drainage from the area. - Past Medical History (1) Asthma Status: Chronic (2) GERD (gastroesophageal reflux disease) Status: Chronic (3) Hypertension Status: Chronic (4) Depression Status: Chronic Past Medical History - Allergies and Home Meds Allergies/Adverse Reactions: Allergies No Known Allergies Allergy (Verified 06/11/19 19:16) Primary Care Physician: Pawan BeltranSigurdrhonda Robertssmithfield [Primary Care Provider] - Prior records reviewed: Yes Smoking Status: Never smoker Review of Systems General: Denies: Chills, Fever Eyes: Denies: Visual changes - bilaterally ENT: Denies: Bilateral ear pain Cardiovascular: Denies: Chest pain Respiratory: Denies: Dyspnea, Cough Gastrointestinal: Denies: Abdominal pain, Nausea Genitourinary: Denies: Dysuria Musculoskeletal: Reports: Extremity Pain Skin: Reports: Wounds Neurological: Denies: Headache Hematologic: Denies: Easy bruising, Easy bleeding Allergy: Denies: Uticaria Physical Exam Vital Signs/Narrative: Vital Signs Temp Pulse Resp BP Pulse Ox 06/11/19 19:12 98.2 F 90 15 114/84 H 96 Inital Vital Signs reviewed: Yes General: Well nourished, Well developed Head: Normocephalic ENT: Moist mucous membranes Neck: Supple Cardiovascular: Regular rate, Regular rhythm Respiratory: No distress, CTA bilaterally Abdomen: Soft, Nontender Skin: - - Small scabbed lesion to the inner right upper arm. Minimal surrounding erythema consistent with wound healing, not infection. No drainage or palpable abscess. Neurological: Alert, Oriented x3 Psychological: Normal affect Diagnostic/Tx/Re-eval - Medical Decision Making Right upper extremity wound was cleansed and bacitracin was applied. Area was wrapped with an Theodore wrap. She will follow-up with me will start him in clinic. This time there is no sign of infection and antibiotics are not required. ED Disposition - Plan for ED Patient: Disposition: Home or Assisted Living Diagnosis: Visit for wound check Instructions: POST OP WOUND CHECK, Pain Referrals: Salma Hazel [Primary Care Provider] - 3-5 Days
== END 2019-06-11 20:00 | disposition home or self-care (01) ==
PROVIDERS: Emergency Provider Emergency Medicine
DX: L91.8 Other hypertrophic disorders of the skin (principal); Z48.00 Encounter for change or removal of nonsurgical wound dressing; J45.909 Unspecified asthma, uncomplicated; K21.9 Gastro-esophageal reflux disease without esophagitis; I10 Essential (primary) hypertension; F32.9 Major depressive disorder, single episode, unspecified; Z79.899 Other long term (current) drug therapy
CPT/HCPCS: 99282

== ENCOUNTER 2019-06-18 18:16 | Emergency (ER) | payer MEDICARE, SELFPAY ==
[2019-06-18 18:17] VITALS: BP 125/77; PULSE 85; RESP 15; TEMP 37.2; O2SAT 99; BMI 38.7
--- NOTE | 2019-06-18 18:32 | ED.DCSUM_ITS ---
History of Present Illness Chief Complaint: Lower Extremity Injury Narrative: Patient presenting secondary to a rash to the right posterior leg. Patient reports that yesterday she started noticing a rash that was itchy to her right posterior leg. It has progressed to being painful, there is been some spreading redness. Patient denies any injury. Patient denies any constitutional symptoms such as fevers. Patient is not immunosuppressed or diabetic. Patient states that she is never had any prior similar symptoms. She denies any history of DVT or PE, chest pain recent travel surgery hemoptysis or any exogenous hormone use. Review of systems otherwise negative. Past Medical History - Allergies and Home Meds Allergies/Adverse Reactions: Allergies No Known Allergies Allergy (Verified 06/18/19 18:16) Primary Care Physician: Salma Hazel [Primary Care Provider] - Past Medical History: - - Hypertension Smoking Status: Never smoker Review of Systems All systems negative except as indicated General: Denies: Chills, Fever, Sweats Eyes: Denies: Visual changes - bilaterally, Diplopia ENT: Denies: Rhinorrhea, Sore throat Cardiovascular: Denies: Chest pain, Palpitations Respiratory: Denies: Dyspnea, Cough, Dyspnea on exertion Gastrointestinal: Denies: Abdominal pain, Nausea, Vomiting, Diarrhea, Melena, Hematochezia Genitourinary: Denies: Dysuria, Hematuria, Frequency Musculoskeletal: Denies: Back pain, Extremity Pain Skin: Reports: Rash Neurological: Denies: Headache, Weakness, Numbness Physical Exam Vital Signs/Narrative: Vital Signs Temp Pulse Resp BP Pulse Ox 06/18/19 18:17 98.9 F 85 15 125/77 H 99 Inital Vital Signs reviewed: Yes General: Well nourished, Well developed, No Acute Distress, - Head: Normocephalic, Atraumatic Eyes: Perrl, EOMI ENT: Moist mucous membranes, No rhinorrhea Neck: Supple, Nontender Cardiovascular: Regular rate, Regular rhythm, No murmurs Respiratory: No distress, CTA bilaterally, Chest nontender Abdomen: Soft, Nontender, Nondistended, Normal bowel sounds Back: Nontender, Normal Inspection Extremities: Nontender, No edema Skin: Normal color, - - On the posterior portion of the distal right thigh there is approximately 3 cm of erythema with a central abrasion. Minimal induration no fluctuance no subcutaneous emphysema no lymphangitic streaking there is tenderness to palpation in this area. Neurological: Alert, Oriented x3, Cranial nerves II-XII grossly intact, Normal Strength, Normal Sensation Psychological: Normal affect, Normal Mood Diagnostic/Tx/Re-eval - Medical Decision Making Patient presented secondary to a painful rash to her right thigh. Physical exam seems consistent with a localized cellulitis. Patient be placed on Keflex first dose given in the emergency department. ED Disposition - Plan for ED Patient: Disposition: Home or Assisted Living Diagnosis: Cellulitis Instructions: Cellulitis Prescriptions: Cephalexin [Keflex] 500 mg PO Q6 #40 cap Prescription Printed Referrals: [facility] Salma Beltran [Primary Care Provider] - 1 Week
[2019-06-18] MEDS: Cephalexin 250 MG Capsule 500 MG PO (18:46)
== END 2019-06-18 18:53 | disposition home or self-care (01) ==
LOC: ED 18:51
PROVIDERS: Emergency Provider Emergency Medicine
DX: L03.115 Cellulitis of right lower limb (principal); I10 Essential (primary) hypertension; Z79.899 Other long term (current) drug therapy
CPT/HCPCS: 99283

== ENCOUNTER 2019-09-25 18:24 | Emergency (ER) | payer MEDICARE, SELFPAY ==
[2019-09-25 18:25] VITALS: BP 131/86; PULSE 102; RESP 19; TEMP 36.7; O2SAT 95; BMI 39.7
--- NOTE | 2019-09-25 18:39 | ED.DCSUM_ITS ---
History of Present Illness Chief Complaint: Rash Informant: Patient Onset: Today Current Severity: Moderate Maximum Severity: Moderate Narrative: Patient presents with itchy rash to both arms and to her right lower leg. Patient states she was picking up cans in her yard over the weekend and there were some weeds around. She denies any injury. - Past Medical History (1) Asthma Status: Chronic (2) Depression Status: Chronic (3) GERD (gastroesophageal reflux disease) Status: Chronic (4) Hypertension Status: Chronic Past Medical History - Allergies and Home Meds Allergies/Adverse Reactions: Allergies No Known Allergies Allergy (Verified 09/25/19 18:24) Primary Care Physician: Salma Hazel [Primary Care Provider] - Prior records reviewed: Yes Smoking Status: Never smoker Review of Systems General: Denies: Chills, Fever Eyes: Denies: Visual changes - bilaterally ENT: Denies: Bilateral ear pain Cardiovascular: Denies: Chest pain Respiratory: Denies: Dyspnea, Cough Gastrointestinal: Denies: Abdominal pain Musculoskeletal: Denies: Swelling, Extremity Pain Skin: Reports: Rash Neurological: Denies: Headache Hematologic: Denies: Easy bruising, Easy bleeding Allergy: Denies: Uticaria Physical Exam Vital Signs/Narrative: Vital Signs Temp Pulse Resp BP Pulse Ox 09/25/19 18:25 98.0 F 102 H 19 H 131/86 H 95 Inital Vital Signs reviewed: Yes General: Well nourished, Well developed Head: Normocephalic ENT: Moist mucous membranes Neck: Supple Cardiovascular: Regular rate, Regular rhythm Respiratory: No distress, CTA bilaterally Abdomen: Soft, Nontender Skin: - - Erythematous slightly raised lesions to the bilateral forearms and to the right lateral lower leg. The lesions are consistent with poison jennifer. No sign of cellulitis. Neurological: Alert, Oriented x3 Psychological: Normal affect Diagnostic/Tx/Re-eval - Medical Decision Making Patient will be given prednisone here. Should be given prescriptions for prednisone and Benadryl to take at home. ED Disposition - Plan for ED Patient: Disposition: Home or Assisted Living Diagnosis: Poison jennifer Instructions: ED Dermatitis Poison Jennifer Prescriptions: DiphenhydrAMINE [Benadryl] 50 mg PO TID PRN PRN #20 cap PRN Reason: Rash/Topical Irritation Transmission Status: Pending to [id number] Prednisone [Deltasone] 60 mg PO DAILY #15 tab Transmission Status: Pending to [id number]errals: [facility] Patterson [Primary Care Provider] - 1 Week if not improving
--- NOTE | 2019-09-25 18:54 | ED.RN ---
DISCHARGE INSTRUCTIONS GIVEN TO AND REVIEWED WITH PATIENT, PATIENT DENIES QUESTIONS OR CONCERNS AND VOICES UNDERSTANDING OF DISCHARGE INSTRUCTIONS. PT AMBULATES OUT OF ROOM WITHOUT DIFFICULTY.
== END 2019-09-25 18:55 | disposition home or self-care (01) ==
LOC: ED 18:49
PROVIDERS: Emergency Provider Emergency Medicine
DX: L23.7 Allergic contact dermatitis due to plants, except food (principal); J45.909 Unspecified asthma, uncomplicated; F32.9 Major depressive disorder, single episode, unspecified; K21.9 Gastro-esophageal reflux disease without esophagitis; I10 Essential (primary) hypertension; Z79.899 Other long term (current) drug therapy
CPT/HCPCS: 99282

== ENCOUNTER → 2020-01-10 | Outpatient (CLI) | payer MEDICARE, SELFPAY ==
--- NOTE | 2020-01-10 14:05 | PFTCOMP ---
COMPLETE PULMONARY FUNCTION TEST INTERPRETATION Brief HPI: Patient is a 49 year old female, currently under the care of Tisha Magallon, who presents to [facility] for complete pulmonary function tests secondary to diagnosis of asthma. Respiratory therapist reports good effort and reproducible results. Interpretation: Forced expiration spirometry shows a mild large airways obstructive ventilatory defect with an FEV1 of 102% predicted. There is a significant bronchodilator response in FVC and FEV1 by strict ATS criteria. Spirograms are of good quality and plateau slowly, indicating slowly emptying areas of the lungs. The respiratory flow volume loop shows a normal pattern. Lung volumes by body plethysmography show an elevated total lung capacity at 6.62 L, 128% predicted. FRC and RV are elevated out of proportion. Lung volume measurements are consistent with hyperinflation and air-trapping. Diffusion capacity by carbon monoxide is decreased at 66% predicted. The airway resistance is normal. Compared to previous pulmonary function tests from 11/19/2016, there has been no significant change. Impression: Fully reversible mild large airways obstructive ventilatory defect resulting in air trapping with hyperinflation. There is an isolated reduction diffusion capacity, which may be concerning for a isolated pulmonary vascular disorder. Consider echocardiogram if not completed previously
== END | disposition home or self-care (01) ==
LOC: PSN 12:53
DX: J45.909 Unspecified asthma, uncomplicated (principal)
CPT/HCPCS: 94060; 94726; 94729

== ENCOUNTER 2020-02-09 21:34 | Emergency (ER) | payer MEDICARE, SELFPAY ==
[2020-02-09 21:35] VITALS: BP 118/71; PULSE 104; RESP 18; TEMP 36.3; O2SAT 98; BMI 39.6
--- NOTE | 2020-02-09 22:03 | EKG12_ITS ---
Test Reason : ABD PAIN Blood Pressure : / mmHG Vent. Rate : 098 BPM Atrial Rate : 098 BPM P-R Int : 144 ms QRS Dur : 082 ms QT Int : 338 ms P-R-T Axes : 034 -06 018 degrees QTc Int : 431 ms Normal sinus rhythm Normal ECG Confirmed by ONEAL PAZ, JAYCE ([id number]), material expeditor GABRIEL KRISHNA ([id number]) on 02/13/2020 11:16:22 AM Referred By: CL Confirmed By:JAYCE NO MD
[2020-02-09] MEDS: 0.9% Normal Saline 1,000 ML 1000 ML IV (22:11)
[2020-02-09] MEDS: Ketorolac 15 MG/ML Vial IV (22:11)
[2020-02-09 22:18] LABS: Mucous, Urine 0 SEEN /hpf (<or=2+)
[2020-02-09 22:22] LABS: Absolute Lymphocyte Count 2.73 X10^3/uL (0.83-4.51); Basophil# 0.04 X10^3/uL; Basophil% 0.3 % (0-1); Eosinophils% 0.6 % (0-5); Hemoglobin 12.5 g/dL (12.0-15.0); Lymphocyte # 2.73 X10^3/ul (4.0); Lymphocyte % 17.1 % (19-41); Mean Corp Hgb Conc 32.1 g/dL (32-36); Mean Corpuscular Hgb 27.1 pg (27.0-32.0); Mean Corpuscular Volume 84.6 fL (81-99); Mean Platelet Vol. 11.1 fl (6.2-12.0); Monocyte# 1.05 X10^3/uL; Monocyte% 6.6 % (0-10); NRBC Flagged by Analyzer 0 % (0-5); Neutrophil # 12.03 X10^3/uL (2.7-7.7); Neutrophil % 75.1 % (47-70); Platelet Count 362 K/mm3 (150-450); RBC Distribution Width CV 12.9 % (11.6-14.6); RBC Distribution Width SD 39.6 fl (35.1-43.9); Red Blood Count 4.61 M/mm3 (4.2-5.4)
[2020-02-09 22:27] LABS: Color, Urine Yellow (Yellow); Glucose, Dipstick Normal (Normal); Ketone-Dipstick Negative (Negative); Leukocyte Esterase-Dipstick 500 /ul (Negative); Nitrite-Dipstick Negative (Negative); Occult Blood-Urine 250 /ul (Negative); Protein-Dipstick 15 mg/dl (Negative); Specific Gravity, Urine 1.015 (1.002-1.030); Urine Bilirubin Dipstick 1 mg/dL (Negative); Urine Clarity Sl. Cloudy (Clear); Urine Urobilinogen Normal (Normal)
[2020-02-09 22:31] LABS: Internal QC Validated? YES +Cl - CLEAR BKGD; Pregnancy, Serum, hCG Quali. NEGATIVE Negative
[2020-02-09 22:36] LABS: Bacteria RARE /hpf (None Seen); Red Blood Cells-Urine 0-5 SEEN /hpf (0-5); Squamous Epithelial Cells - UA 0-5 SEEN /hpf (5-10); White Blood Cells 0-5 SEEN /hpf (0-5)
--- NOTE | 2020-02-09 22:37 | ED.DCSUM_ITS ---
History of Present Illness Chief Complaint: Abd Pain Informant: Patient Narrative: 49-year-old female with past medical history of hypertension presents with abdominal pain. States that it began approximately 12 hours ago. States that yesterday in the evening she had 3 pieces of lasagna with 3 pieces of toast and cheese. States that she went to bed and upon awakening approximately 12 hours ago she began having left-sided abdominal pain. States it is more in her left flank and radiates across her abdomen to the right side. States it is aching and intermittent. Worse with movement. No relieving factors. Denies any nausea, vomiting, diarrhea, constipation, urinary symptoms. Last menstrual period just ended yesterday. Denies any vaginal bleeding or discharge out of the ordinary. Denies any chest pain, shortness of breath, diaphoresis, fever, chills, cough. Past Medical History - Allergies and Home Meds Allergies/Adverse Reactions: Allergies No Known Allergies Allergy (Verified 02/09/20 21:35) Primary Care Physician: Tisha Magallon MANAGER ASSURANCE, MANAGER ASSURANCE-C [Primary Care Provider] - Prior records reviewed: Yes Past Medical History: - - HTN Lives: Spouse/ Significant Other Smoking Status: Never smoker Alcohol: None Drugs: None Review of Systems General: Denies: Chills, Fever, Sweats Eyes: Denies: Visual changes - bilaterally, Diplopia ENT: Denies: Rhinorrhea, Sore throat Cardiovascular: Denies: Chest pain, Palpitations Respiratory: Denies: Dyspnea, Cough, Dyspnea on exertion Gastrointestinal: Reports: Abdominal pain. Denies: Nausea, Vomiting, Diarrhea, Melena, Hematochezia Genitourinary: Denies: Dysuria, Hematuria, Frequency Musculoskeletal: Denies: Back pain, Extremity Pain Skin: Denies: Rash, Wounds Neurological: Denies: Headache, Weakness, Numbness Physical Exam Vital Signs/Narrative: Vital Signs Temp Pulse Resp BP Pulse Ox 02/09/20 21:35 97.4 F L 104 H 18 118/71 98 General: Well nourished, Well developed, No Acute Distress Head: Normocephalic, Atraumatic Eyes: Perrl, EOMI ENT: Moist mucous membranes, No rhinorrhea Neck: Supple, Nontender Cardiovascular: Regular rate, Regular rhythm, No murmurs Respiratory: No distress, CTA bilaterally, Chest nontender Abdomen: Soft, Nontender, Nondistended, Normal bowel sounds Back: Nontender, Normal Inspection Extremities: Nontender, No edema Skin: Normal color, No rash Neurological: Alert, Oriented x3, Cranial nerves II-XII grossly intact, Normal Strength, Normal Sensation Psychological: Normal affect, Normal Mood Diagnostic/Tx/Re-eval Clinical Impression(s) from Imaging Studies Abdomen/Pelvis CT 02/09/20 23:11 IMPRESSION: 1. Mild sigmoid diverticulitis without perforation or abscess. 2. Small left adnexal cyst. 3. Otherwise normal CT of the abdomen and pelvis. Electronically Signed: Kartik GerardoDO at 23:33 EDT Tel [phone], Service support , Laboratory Data 02/09/20 02/09/20 02/09/20 22:00 22:00 22:00 WBC 16.0 H RBC 4.61 Hgb 12.5 Hct 39.0 MCV 84.6 MCH 27.1 MCHC 32.1 RDW Std Deviation 39.6 RDW Coeff of Mamie 12.9 Plt Count 362 MPV 11.1 Immature Gran % (Auto) 0.300 Neut % (Auto) 75.1 H Lymph % (Auto) 17.1 L [place] % (Auto) 6.6 Eos % (Auto) 0.6 Baso % (Auto) 0.3 Absolute Neuts (auto) 12.0 H Absolute Lymphs (auto) 2.73 Nucleated RBC % 0 Sodium 135 L Potassium 4.0 Chloride 104 Carbon Dioxide 25.0 Anion Gap 6 BUN 8 Creatinine 0.91 Estim Creat Clear Calc 67.29 Est GFR (MDRD) Af Amer 84 Est GFR (MDRD) Non-Af 70 BUN/Creatinine Ratio 8.8 L Glucose 103 Calcium 8.5 Total Bilirubin 0.50 AST 25 ALT 27 Alkaline Phosphatase 78 Troponin I < 0.015 Total Protein 8.7 H Albumin 3.6 Globulin 5.1 H Albumin/Globulin Ratio 0.7 L Lipase 85 Serum , Qual NEGATIVE Urine Color Urine Clarity Urine pH Ur Specific [place] Urine Protein Urine Glucose (UA) Urine Ketones Urine Occult Blood Urine Nitrite Urine Bilirubin Urine Urobilinogen Ur Leukocyte Esterase Urine RBC Urine WBC Ur Squamous Epith Cells Urine Bacteria Urine Mucus 02/09/20 22:14 WBC RBC Hgb Hct MCV MCH MCHC RDW Std Deviation RDW Coeff of Mamie Plt Count MPV Immature Gran % (Auto) Neut % (Auto) Lymph % (Auto) [place] % (Auto) Eos % (Auto) Baso % (Auto) Absolute Neuts (auto) Absolute Lymphs (auto) Nucleated RBC % Sodium Potassium Chloride Carbon Dioxide Anion Gap BUN Creatinine Estim Creat Clear Calc Est GFR (MDRD) Af Amer Est GFR (MDRD) Non-Af BUN/Creatinine Ratio Glucose Calcium Total Bilirubin AST ALT Alkaline Phosphatase Troponin I Total Protein Albumin Globulin Albumin/Globulin Ratio Lipase Serum , Qual Urine Color Yellow Urine Clarity Sl. Cloudy Urine pH 5.0 Ur Specific [place] 1.015 Urine Protein 15 H Urine Glucose (UA) Normal Urine Ketones Negative Urine Occult Blood 250 H Urine Nitrite Negative Urine Bilirubin 1 H Urine Urobilinogen Normal Ur Leukocyte Esterase 500 H Urine RBC 0-5 SEEN Urine WBC 0-5 SEEN Ur Squamous Epith Cells 0-5 SEEN Urine Bacteria RARE Urine Mucus 0 SEEN - Rhythm Strip Rhythm Strip: Sinus Rhythm Rate: 98 Ectopy: None - EKG Initial EKG Interpretation: Sinus Rhythm - Normal sinus rhythm at 98 bpm. NM interval 144 ms. QTC of 431 ms. No evidence of ST elevation or depression at this time. - Medical Decision Making Appears well and nontoxic. Benign abdominal exam. Patient does have a leukocytosis. CT of the abdomen pelvis shows mild sigmoid diverticulitis. Patient be treated with Augmentin for the next 10 days. Patient also has a left adnexal cyst. She has no tenderness in the left lower quadrant. Patient has no vaginal discharge concerning for tubo-ovarian abscess. Negative test. Patient was advised she needs to follow-up with her REVIEW SCHEDULING COORDINATOR for this issue. Patient advised to return for any new or worsening symptoms. Agreeable and discharged home in stable condition. Impression: 1. Diverticulitis 2. Left adnexal cyst ED Disposition - Plan for ED Patient: Disposition: Home or Assisted Living Instructions: Diverticulitis Prescriptions: Amox/Clavulanate Tablet [Augmentin Tablet] 875 mg PO Q12H #30 tab Prescription Printed Referrals: Tisha Magallon NP, MANAGER ASSURANCE-C [Primary Care Provider] -
[2020-02-09 23:05] LABS: ALB/GLOB Ratio 0.7 RATIO (0.9-2.4); AST(SGOT) 25 U/L (15-37); Alanine Aminotransfer ALT/SGPT 27 U/L (13-56); Albumin, Serum 3.6 g/dL (3.2-5.0); Alkaline Phosphatase 78 U/L (45-117); Anion Gap 6 (5-15); BUN 8 mg/dL (7-18); BUN/Creat Ratio 8.8 RATIO (10-20); Calcium,Total 8.5 mg/dL (8.5-10.1); Chloride 104 mmol/L (98-107); Creatinine, Serum 0.91 mg/dL (0.55-1.02); EST Glomerular Filtration Rate 70 mL/min (>60); Est Glom Filt Rate - Afr Amer 84 mL/min (>60); Estimated Creatinine Clearance 67.29 ml/min; Globulin 5.1 g/dL (2.2-4.2); Glucose 103 mg/dL (74-106); Lipase 85 U/L (73-393); Protein, Total 8.7 g/dL (6.4-8.2); Sodium Level 135 mmol/L (136-145)
--- NOTE | 2020-02-09 23:11 | CT_ITS ---
STUDY: CT ABDOMEN AND PELVIS WITH CONTRAST REASON FOR EXAM: Female, 49 years old. Abdominal pain beginning last night. History of prior cholecystectomy and tubal ligation. RADIATION DOSAGE (If Supplied By Facility): CTDIvol = ( 18.67 ) mGy, DLP = ( 1310.27 ) mGycm TECHNIQUE: Transaxial images were obtained from the dome of the diaphragm to the symphysis pubis without oral contrast. IV 100mL Isovue-300 was administered. Sagittal and coronal images were reconstructed. Individualized dose optimization techniques were used for this CT. COMPARISON: 04/09/2011. FINDINGS: The visualized lung bases are unremarkable. The visualized portions of the heart are within normal limits. Normal liver. There are surgical clips in the gallbladder fossa consistent with a prior cholecystectomy. Normal spleen. Normal pancreas. Normal bilateral adrenal glands. Normal right kidney. Normal left kidney. Normal visualized ureters. Normal visualized stomach. Normal small intestine. There is colonic diverticulosis. There is mild wall thickening and stranding of the pericolonic fat in the left lower quadrant suggesting acute diverticulitis. Proximal colon is unremarkable. The appendix is visualized and appears normal. Normal abdominal aorta. Normal inferior vena cava. Normal retroperitoneum. Normal urinary bladder. Uterus is anteverted and midline. There is tubal ligation clips. There is a 1.8 cm cyst just below the area of diverticulitis described above. No pelvic lymphadenopathy. No free air or free fluid is seen within the peritoneal cavity. Normal abdominal wall. Normal osseous structures. CT/Abdomen/Pelvis W IV Cont ONLY IMPRESSION: 1. Mild sigmoid diverticulitis without perforation or abscess. 2. Small left adnexal cyst. 3. Otherwise normal CT of the abdomen and pelvis. Electronically Signed: Kartik Carrillo DO at 23:33 EDT Tel [phone], Service support ,
[2020-02-09] MEDS: Amox/Clavulanate 875 MG Tablet PO (23:54)
[2020-02-10] VITALS: BP 110/64; PULSE 89; RESP 18; O2SAT 95
== END 2020-02-10 00:02 | disposition home or self-care (01) ==
PROVIDERS: Emergency Provider Emergency Medicine; PCP Nurse Practitioner Family
DX: K57.32 Diverticulitis of large intestine without perforation or abscess without bleeding (principal); N83.202 Unspecified ovarian cyst, left side; I10 Essential (primary) hypertension; Z79.899 Other long term (current) drug therapy
CPT/HCPCS: 74177; 80053; 81001; 83690; 84484; 84703; 85025; 93005; 96361; 96374; 99284; J7030; Q9967; A4216

== ENCOUNTER → 2020-05-02 19:59 | Outpatient (CLI) | payer MEDICARE, SELFPAY | LOC: SL 20:00 | PROVIDERS: Visit Provider Family Medicine | DX: G47.9 Sleep disorder, unspecified (principal) | CPT/HCPCS: 95810 ==

== ENCOUNTER 2020-05-17 16:13 | Observation (INO) | payer MEDICARE, SELFPAY ==
[2020-05-16 13:21] VITALS: BMI 40.6
[2020-05-17] VITALS (8 sets, daily range): BP systolic 106–115; BP diastolic 60–92; PULSE 91–108; RESP 18–23; TEMP 35.3–36.8; O2SAT 97–100; BMI 40.6; BMI 40.5
--- NOTE | 2020-05-17 16:55 | US_ITS ---
STUDY: ULTRASOUND OF THE FEMALE PELVIS - COMPLETE REASON FOR EXAM: Female, 50 years old. HEAVY VAGINAL BLEEDING SINCE LMP: 05/05/2020 TECHNIQUE: Transabdominal real time examined with grayscale image documentation. Transvaginal ultrasound was required for adequate visualization of the adnexal areas. TECHNICAL QUALITY: Adequate. COMPARISON: Prior abdomen and pelvic CT exam of 02/09/2020 FINDINGS: The uterus is anteverted and is in a midline position. The uterus measures 10.9 x 6.9 x 5.1 cm. Nabothian cysts of the cervix. The endometrium measures 24 mm in thickness, and is generally hyperechoic noting a focal hyperechoic density at the apex of the endometrial space. The endometrium appears somewhat hypervascular and there appears to be a small nonvascular filling defect in the lower uterine segment.. There is no demonstrated myometrial mass. I.U.D. - The patient does not have an I.U.D. The right ovary is visualized. The right ovary measures 2.9 x 2.5 x 2.6 cm cm. 2.0 x 1.6 x 1.5 cm simple right ovarian cyst or large follicle. There is no visualized right adnexal mass or complex lesion. There is normal arterial and normal venous vascularity. The left ovary is visualized. The left ovary measures 2.7 x 2.5 x 2.1 cm. 1.9 x 1.6 x 1.5 cm simple follicle. There is no visualized left adnexal mass or complex lesion. There is normal arterial and normal venous vascularity. There is no fluid in the cul-de-sac. Unremarkable urinary bladder. Polycystic ovary disease: No. US/Transvaginal Non- IMPRESSION: Normal size of the uterus without myometrial mass. The endometrium is generally thickened (24 mm) somewhat heterogeneous mostly hyperechoic suggesting endometrial hyperplasia. At the apex of the endometrial cavity there is an area that is about 1 cm in size that is hyperechoic approaching the density of calcification. Most endometrial calcifications are not associated with malignancy; however endometrial polyps may contain calcification. One small filling defect in the lower uterine segment is likely clot. Multiple nabothian cysts of the cervix. 2.0 x 1.6 x 1.5 cm simple cyst or large dominant follicle of the right ovary. Normal DOPPLER flow. 1.9 x 1.6 x 1.5 cm follicle of the left ovary. Normal DOPPLER flow. No additional adnexal masses or free fluid. Electronically Signed: Sheryl Montez MD at 18:16 EST , Service support ,
--- NOTE | 2020-05-17 16:55 | EKG12_ITS ---
Test Reason : Blood Pressure : / mmHG Vent. Rate : 097 BPM Atrial Rate : 097 BPM P-R Int : 128 ms QRS Dur : 094 ms QT Int : 388 ms P-R-T Axes : 065 -06 -04 degrees QTc Int : 492 ms Sinus rhythm with occasional Premature ventricular complexes Prolonged QT Abnormal ECG Confirmed by ONEAL PAZ, JAYCE ([id number]), newspaper photo editor GABRIEL KRISHNA ([id number]) on 05/20/2020 2:22:35 PM Referred By: PAREHS Confirmed By:JAYCE NO MD
--- NOTE | 2020-05-17 16:57 | ED.VISSUMM ---
- ER Visit Summary Date of Service: 05/17/20 Chief Complaint: Vaginal bleeding History of Present Illness: The patient is a 50 F presenting with vaginal bleeding. She states her menstrual cycle started on May 05. She had heavy bleeding with clots since that time. She is using 3-4 pads per day. She has dizziness without syncope. She has generalized weakness and fatigue. She has shortness of breath with exertion. She has mild abdominal cramping. She denies fever or exposure to Covid. Denies chest pain. Physical Examination: Vitals are stable. Patient is afebrile. Alert no acute distress. HEENT exam is unremarkable. Neck is supple. Lungs are clear and equal bilaterally. Heart is regular tachycardic Abdomen is soft mild suprapubic tenderness with no guarding or rebound Pelvic: Mild vaginal bleeding, this is cleared with cotton tip swab. Extremities are unremarkable. Skin is warm and dry. No focal neurologic deficit. Remainder of exam is unremarkable. Emergency Department Course and Treatment: EKG is sinus rhythm rate of 97 with occasional PVCs. CBC shows hemoglobin of 5.1. Chemistries unremarkable. Troponin is negative.. D-dimer is negative. Patient given IV fluids. She was typed and crossed for 2 units. Covid negative. Chest x-ray read by myself and radiology shows no acute process. Pelvic ultrasound shows normal size of the uterus without myometrial mass. The endometrium is generally thickened (24 mm) somewhat heterogeneous mostly hyperechoic suggesting endometrial hyperplasia. At the apex of the endometrial cavity there is an area that is about 1 cm in size that is hyperechoic approaching the density of calcification. Most endometrial calcifications are not associated with malignancy; however endometrial polyps may contain calcification. One small filling defect in the lower uterine segment is likely clot. Multiple nabothian cysts of the cervix. 2.0 x 1.6 x 1.5 cm simple cyst or large dominant follicle of the right ovary. Normal DOPPLER flow. 1.9 x 1.6 x 1.5 cm follicle of the left ovary. Normal DOPPLER flow. No additional adnexal masses or free fluid. Discussed with hospitalist for admission. Disposition: Admission Impression: Symptomatic anemia, vaginal bleeding This note was generated with [employer] software. It may contain incorrect words, spelling, and punctuation that were not noted in review of the chart prior to signing ED Disposition - Plan for ED Patient:
[2020-05-17] MEDS: 0.9% Normal Saline 1,000 ML 1000 ML IV (17:04)
[2020-05-17 17:10] LABS: Absolute Lymphocyte Count 1.82 X10^3/uL (0.83-4.51); Absolute Neutrophil Count 6.3 X10^3/uL (2.0-7.7); Basophil# 0.04 X10^3/uL; Basophil% 0.4 % (0-1); Eosinophil# 0.13 X10^3/uL; Eosinophils% 1.5 % (0-5); Hematocrit 17.6 % (37-47); Lymphocyte # 1.82 X10^3/ul (4.0); Lymphocyte % 20.4 % (19-41); Mean Corpuscular Hgb 22.1 pg (27.0-32.0); Mean Corpuscular Volume 76.2 fL (81-99); Monocyte# 0.61 X10^3/uL; Monocyte% 6.8 % (0-10); NRBC Flagged by Analyzer 0.3 % (0-5); Neutrophil # 6.26 X10^3/uL (2.7-7.7); Neutrophil % 70.3 % (47-70); POSITIVE COUNT YES; Platelet Count 391 K/mm3 (150-450); RBC Distribution Width CV 15.7 % (11.6-14.6); RBC Distribution Width SD 43.4 fl (35.1-43.9); Red Blood Count 2.31 M/mm3 (4.2-5.4); White Blood Count 8.9 K/mm3 (4.4-11.0)
[2020-05-17 17:20] LABS: D-Dimer Quantitative (DVT/PE) 0.46 FEU/ug/m (0.27-0.49)
[2020-05-17 17:24] LABS: Anion Gap 5 (5-15); BUN 8 mg/dL (7-18); BUN/Creat Ratio 9.2 RATIO (10-20); Calcium,Total 8.7 mg/dL (8.5-10.1); Chloride 108 mmol/L (98-107); Creatinine, Serum 0.87 mg/dL (0.55-1.02); EST Glomerular Filtration Rate 73 mL/min (>60); Est Glom Filt Rate - Afr Amer 88 mL/min (>60); Estimated Creatinine Clearance 69.61 ml/min; Glucose 103 mg/dL (74-106); Potassium 4.3 mmol/L (3.5-5.1); Sodium Level 136 mmol/L (136-145)
[2020-05-17 17:39] LABS: Differential Indicated SCAN CRITERIA MET; Hemoglobin 5.1 g/dL (12.0-15.0)
--- NOTE | 2020-05-17 17:40 | RAD_ITS ---
STUDY: X-RAY CHEST REASON FOR EXAM: Female, 50 years old. started her menstrual cycle on 05/05. pt still bleeding and is now weak, pale, dizzy and nauseous. TECHNIQUE: One view COMPARISON: Prior chest radiograph of 04/14/2019 FINDINGS: The lungs are clear and expanded. There is no demonstrated pleural abnormality. Normal size heart. Normal mediastinum and dusty. Normal visualized pulmonary arteries. Normal visualized aortic arch and descending thoracic aorta. Normal visualized thoracic spine. Normal visualized ribs, clavicles, and shoulders. There is no demonstrated abnormality of the visualized soft tissue structures of the upper abdomen. RAD/Chest 1 View (Portable) IMPRESSION: Normal x-ray examination of the chest. Electronically Signed: Sheryl Montez MD at 17:57 EST , Service support ,
[2020-05-17 18:13] LABS: Anisocytosis 1+; Hypochromasia 1+; Microcytosis 1+; Platelet Estimate ADEQUATE (ADEQ); Red Cell Morphology N CHROM NORMAL (NORM C&C)
--- NOTE | 2020-05-17 18:34 | HP.PCM_ITS ---
Problem List (1) Severe anemia Status: Acute (2) Vaginal bleeding Status: Acute (3) BMI greater than 40 Status: Chronic (4) CECILIA (obstructive sleep apnea) Status: Chronic Comment: overall AHI of 24.7 (5) H/O tubal ligation Status: Resolved (6) Hypertension Status: Chronic (7) Depression Status: Chronic (8) Asthma Status: Chronic Qualifiers: (9) GERD (gastroesophageal reflux disease) Status: Chronic History of Present Illness Date of Admission: 05/17/20 Ms. Coleman is a 50 year old WF with a past medical history of hypertension and depression presented to the emergency department on 05/17/2020 with a chief complaint of heavy vaginal bleeding. She reports that her menstrual cycle started on May 05 and she has been bleeding heavily since then with extensive amounts of clots. She is using approximately 4 pads during the day and has to change them occasionally at night as well secondary to the heavy bleeding. She reports she still has monthly periods and has had no disruption her cycles or hot flashes. She has had some lightheadedness but no syncope. She reports weakness and fatigue. She also notes some increased shortness of breath with exertion but not at rest. She has mild abdominal cramping. She denies fever, chills, chest pain, nausea, vomiting, diarrhea, melena, hematoche isidro or tingling/numbness/weakness. Her vital signs in the emergency department are stable other than some mild tachycardia with a heart rate of 106. Her CBC showed a significant anemia with a hemoglobin of 5.1. White count and platelet count were within normal limits. Her last hemoglobin recorded in the computer here at the hospital was on 02/08/2021 and was 12.5 at that time. A D-dimer was obtained and was within normal limits BMP was done and was within normal limits. A transvaginal ultrasound showed a normal-sized uterus without myomata atrial mass and a thickened endometrium (24 mm) and was suggestive of endometrial hyperplasia and one small filling defect in the lower uterine segment that is suggestive of a clot. 2 units of blood have been ordered in the emergency department and are being prepared for transfusion. [facility] transfusions and gynecology consult. Past Medical History Past Medical History (Chronic Problems): Chronic Problems (Last Reviewed 05/16/20 @ 13:33 by Cheyanne Forbes SENIOR JAVA UI DEVELOPER, SENIOR JAVA UI DEVELOPER-C) BMI greater than 40 (Chronic) CECILIA (obstructive sleep apnea) (Chronic) overall AHI of 24.7 Hypertension (Chronic) Depression (Chronic) Asthma (Chronic) GERD (gastroesophageal reflux disease) (Chronic) Medical History: Medical History (Last Reviewed 05/17/20 @ 18:[address] Evelyn Dodge DO) Hypertension (Chronic) I10 Depression (Chronic) F32.9 Asthma (Chronic) J45.909 GERD (gastroesophageal reflux disease) (Chronic) K21.9 Allergies No Known Allergies Allergy (Verified 05/17/20 16:15) Home Medications: Ambulatory Orders Medication Instructions Recorded Metoprolol Tartrate [Lopressor 25 mg PO DAILY 11/02/15 (Beta Shauna)] Cholecalciferol (Vitamin D3) 2,000 unit PO DAILY 02/09/20 [D3-2000] Sertraline HCl [Zoloft] 50 mg PO DAILY 02/09/20 Albuterol Sulfate [Albuterol 2 puff INHALATION Q4H PRN PRN 05/17/20 Sulfate HFA] Surgical History: Surgical History (Last Reviewed 05/17/20 @ 18:[address] Evelyn Dodge DO) H/O tubal ligation (Resolved) Z98.51 Cholecystectomy planned (Resolved) Psychiatric History: Depression Lives: With Family Smoking Status: Never smoker Tobacco Use: Non-smoker Alcohol: Rare Drugs: None - *Family History Maternal Family History: Family History (Last Reviewed 05/16/20 @ 13:33 by Cheyanne Forbes NP, SENIOR JAVA UI DEVELOPER-C) Grandmother CHF (congestive heart failure) Mother Cancer Thyroid disorder Father Cancer History Items: Unknown Paternal Family History: Family History (Last Reviewed 05/16/20 @ 13:33 by Cheyanne Forbes NP, SENIOR JAVA UI DEVELOPER-C) Grandmother CHF (congestive heart failure) Mother Cancer Thyroid disorder Father Cancer History Items: Unknown Review of Systems Constitutional: Reports: Weakness, Fatigue. Denies: Anorexia, Chills, Fever, Night Sweats, Malaise, Weight Change Eyes: Denies: Blurred vision, Cataracts, Conjunctivae Inflammation, Double vis ion, Drainage, Eyelid Inflammation, Pain, Redness, Vision Change HEENT: Denies: Difficulty Hearing, Ear Pain, Eye Pain, Hard of Hearing, Hearing Changes, Nasal bleeding, Nasal Congestion, Post Nasal Drip, Sinus Congestion, Sinus Drainage, Sore Throat, Visual Changes Cardiovascular: Reports: Light Headedness. Denies: Chest Pain, Claudication, Chest Pressure, Chest Tightness, Edema, Heaviness, Orthopnea, Palpitations, Paroxysmal Noc. Dyspnea, Syncope Respiratory: Reports: Shortness of Breath, Shortness of breath upon exertion. Denies: Cough, Hemoptysis, Pleuritic Pain, Shortness of breath at rest, Sputum production, Wheezing Gastrointestinal: Reports: Abdominal Pain - Mild cramping. Denies: Constipation, Diarrhea, Dyspepsia, Hematemesis, Hematochezia, Nausea, Melena, Vomiting Genitourinary: Denies: Dysuria, Frequency, Hematuria, Hesitancy, Incontinence, Nocturia, Retention, Urgency Gynecological: Reports: Vaginal bleeding Musculoskeletal: Denies: Back Pain, Joint Pain, Joint stiffness, Joint swelling, Joint Tenderness, Muscle pain, Neck Pain Skin: Denies: Dryness, Jaundice, Lesions, Pruritis, Rash, Skin Changes, Wounds Neurological: Denies: Balance problems, Blurred vision, Double vision, Change in Speech, Slurred speech, Confusion, Difficulty swallowing, Focal weakness, Headaches, Incoordination, Numbness, Tingling, Tremor, Seizures Psychiatric: Reports: Depression. Denies: Anxiety Endocrine: Denies: Change in Body Habitus, Heat/ Cold Intolerance, Polyuria Hematologic/ Lymphatic: Denies: Adenopathy, Anemia, Easy Bruising, Easy Bleeding, Petechiae, Purpura VTE Information - Inpt Only VTE Present on Admission: No VTE Mechan Device Prophylaxis: None VTE Pharm Prophylaxis ordered?: No Reason prophylaxis not ordered:: Treatment Not Indicated - Early ambulation - Physical Exam Vitals/I&O's: Vital Signs Temp Pulse Resp BP Pulse Ox 95.5 F L 106 H 18 115/79 100 05/17/20 16:13 05/17/20 16:13 05/17/20 16:13 05/17/20 16:13 05/17/20 16:13 Oxygen Delivery Method Room Air Weight: 110.677 kg Body Mass Index (BMI) 40.6 General: Alert, Oriented x3, Cooperative, No apparent distress, Well developed, Well nourished, - - Pale morbidly obese white female sitting up in bed, appears nontoxic, appears comfortable HEENT: Atraumatic, PERRLA, EOMI, Normocephalic, TM's Clear, EAC Clear, - - Pale conjunctiva Oral: Moist Mucosa, No Gingival or Mucosal Lesions/ Ulcerations, - - For dentition Neck: Supple, Trachea Midline, Thyroid Normal Size and Texture Lungs: Clear to auscultation, Normal air movement, No rhonchi, No wheeze, No rales Cardiovascular: Regular Rhythm, Normal S1, Normal S2, No murmurs, No Ectopic Activity, No rub noted, No Gallop, Tachycardic - Mild Abdomen: Bowel Sounds Present, Soft, Non Tender, Non-Distended, Obese Extremities: No clubbing, No cyanosis, No edema, Capillary Refill Less than 3 Seconds, Peripheral Pulses Normal, - - Pallor of hand creases Skin: No rashes, No breakdown, - - Pale skin Musculoskeletal: No Tenderness to Palpation of Joints or Extremities, No Muscle Wasting Lymphatic: No Cervical, Supraclavicular, or Inguinal Adenopathy Neurological: Cranial nerves II-XII grossly intact, Neuro grossly intact, Muscle tone normal, Coordination normal Psych/Mental Status: Normal Affect, Appropriate Microbiology Past 72 Hours 05/17/20 17:15 Mucosa - Nose SARS-CoV-2 Antigen (Rapid) - Final Laboratory Results 05/17/20 16:40: WBC 8.9, RBC 2.31 L, Hgb 5.1 L*, Hct 17.6 L, MCV 76.2 L, MCH 22.1 L, MCHC 29.0 L, RDW Std Deviation 43.4, RDW Coeff of Mamie 15.7 H, Plt Count 391, MPV 10.0, Immature Gran % (Auto) 0.600, Neut % (Auto) 70.3 H, Lymph % (Auto) 20.4, [place] % (Auto) 6.8, Eos % (Auto) 1.5, Baso % (Auto) 0.4, Absolute Neuts (auto) 6.3, Absolute Lymphs (auto) 1.82, Nucleated RBC % 0.3, Diff Path Review August, Platelet Estimate ADEQUATE, RBC Morphology N CHROM, Hypochromasia 1+, Anisocytosis 1+, Microcytosis 1+ 05/17/20 16:40: D-Dimer Quant (PE/DVT) 0.46 05/17/20 16:40: Sodium 136, Potassium 4.3, Chloride 108 H, Carbon Dioxide 23.0, Anion Gap 5, BUN 8, Creatinine 0.87, Estim Creat Clear Calc 69.61, Est GFR (MDRD) Af Amer 88, Est GFR (MDRD) Non-Af 73, BUN/Creatinine Ratio 9.2 L, Glucose 103, Calcium 8.7, Troponin I < 0.015 05/17/20 16:40: Blood Type Pending, Antibody Screen Pending, Crossmatch See Detail Assessment/Plan All Active Problems (Last Reviewed 05/16/20 @ 13:33 by Cheyanne Forbes SENIOR JAVA UI DEVELOPER, SENIOR JAVA UI DEVELOPER- C) Severe anemia (Acute) Vaginal bleeding (Acute) Cholecystectomy planned (Resolved) H/O tubal ligation (Resolved) Severe microcytic anemia secondary to vaginal bleeding -Cross and screen -Transfuse 2 units packed red blood cells -Start oral iron supplementation -Transvaginal ultrasound completed--> see report(endometrial hyperplasia) -Consult gynecology for further input Tachycardia -Secondary to anemia -Continue to monitor should improve with transfusion Hypertension -BP is stable -Continue home metoprolol Asthma -Continue as needed albuterol Depression -Continue Zoloft Vitamin D deficiency -Restart cholecalciferol at discharge DVT prophylaxis -Early ambulation CODE STATUS -Full Inpatient E&M: 66082 Init Hosp L3
[2020-05-17] MEDS: Iron Polysaccharide Complex 150 MG CAPSULE PO (21:16)
[2020-05-17] MEDS: Acetaminophen 325 MG Tablet 650 MG PO (21:16)
[2020-05-17] MEDS: MELATONIN 3 MG TABLET PO (22:28)
[2020-05-17] MEDS: 0.9% Saline Lock 10 ML Syringe IV (22:29)
[2020-05-18] VITALS (20 sets, daily range): BP systolic 90–123; BP diastolic 52–81; PULSE 72–102; RESP 16–18; TEMP 36.5–37.2; O2SAT 94–99; BMI 40.5
--- NOTE | 2020-05-18 02:51 | NURSING ---
PANDEMIC DOCUMENTATION
[2020-05-18] MEDS: 0.9% Saline Lock 10 ML Syringe IV ×4 (03:06→14:34)
[2020-05-18] MEDS: Iron Polysaccharide Complex 150 MG CAPSULE PO ×2 (05:57→14:34)
[2020-05-18 06:12] LABS: Absolute Lymphocyte Count 2.52 X10^3/uL (0.83-4.51); Basophil# 0.05 X10^3/uL; Basophil% 0.5 % (0-1); Eosinophil# 0.14 X10^3/uL; Eosinophils% 1.5 % (0-5); Hematocrit 21.5 % (37-47); Hemoglobin 6.5 g/dL (12.0-15.0); Lymphocyte # 2.52 X10^3/ul (4.0); Lymphocyte % 26.3 % (19-41); Mean Corp Hgb Conc 30.2 g/dL (32-36); Mean Corpuscular Hgb 23.9 pg (27.0-32.0); Mean Platelet Vol. 9.7 fl (6.2-12.0); Monocyte# 0.76 X10^3/uL; Monocyte% 7.9 % (0-10); NRBC Flagged by Analyzer 0.2 % (0-5); Neutrophil # 6.03 X10^3/uL (2.7-7.7); Neutrophil % 63.1 % (47-70); Platelet Count 323 K/mm3 (150-450); RBC Distribution Width CV 17.1 % (11.6-14.6); RBC Distribution Width SD 49.1 fl (35.1-43.9); Red Blood Count 2.72 M/mm3 (4.2-5.4); White Blood Count 9.6 K/mm3 (4.4-11.0)
[2020-05-18 06:29] LABS: Prothrombin Time (Protime)PT. 13.1 SECONDS (11.7-14.9)
[2020-05-18 06:30] LABS: Partial Thromboplast Time 24.7 Seconds (24.1-36.2)
[2020-05-18 06:45] LABS: Anion Gap 7 (5-15); BUN 7 mg/dL (7-18); BUN/Creat Ratio 9.4 RATIO (10-20); Calcium,Total 7.7 mg/dL (8.5-10.1); Chloride 107 mmol/L (98-107); Creatinine, Serum 0.74 mg/dL (0.55-1.02); EST Glomerular Filtration Rate 88 mL/min (>60); Est Glom Filt Rate - Afr Amer 106 mL/min (>60); Estimated Creatinine Clearance 81.84 ml/min; Glucose 111 mg/dL (74-106); Potassium 3.9 mmol/L (3.5-5.1); Sodium Level 137 mmol/L (136-145); Thyroid Stim Hormone (TSH) 3.19 uIU/mL (0.358-3.74)
[2020-05-18] MEDS: Lactated Ringers 1,000 ML 125 ML IV (07:32)
--- NOTE | 2020-05-18 08:10 | PCM.CONS.GEN ---
Problem List (1) Severe anemia Status: Acute (2) Vaginal bleeding Status: Acute (3) BMI greater than 40 Status: Chronic (4) CECILIA (obstructive sleep apnea) Status: Chronic Comment: overall AHI of 24.7 (5) Hypertension Status: Chronic (6) Depression Status: Chronic (7) Asthma Status: Chronic Qualifiers: (8) GERD (gastroesophageal reflux disease) Status: Chronic Reason for Consult Date of Consultation: 05/18/20 History of Present Illness: The patient is a 50 year old F presents with acute heavy vaginal bleeding since May 05 and anemia secondary to blood loss. She has a history of hypertension and states previously she had regular cycles with menses lasting no more than 3 to 4 days with only moderate bleeding. Bleeding became so heavy last night that she decided to be evaluated emergently. Hemoglobin was noted to be significantly anemic and therefore she was admitted and transfused. Past Medical History Past Medical History (Chronic Problems): Chronic Problems (Last Reviewed 05/17/20 @ 18:[address] Evelyn Dodge DO) BMI greater than 40 (Chronic) CECILIA (obstructive sleep apnea) (Chronic) overall AHI of 24.7 Hypertension (Chronic) Depression (Chronic) Asthma (Chronic) GERD (gastroesophageal reflux disease) (Chronic) Medical History: Medical History (Last Reviewed 05/17/20 @ 18:[address] Evelyn Dodge DO) Hypertension (Chronic) I10 Depression (Chronic) F32.9 Asthma (Chronic) J45.909 GERD (gastroesophageal reflux disease) (Chronic) K21.9 Allergies No Known Allergies Allergy (Verified 05/17/20 16:15) Home Medications: Ambulatory Orders Medication Instructions Recorded Metoprolol Tartrate [Lopressor 25 mg PO DAILY 11/02/15 (Beta Shauna)] Cholecalciferol (Vitamin D3) 2,000 unit PO DAILY 02/09/20 [D3-2000] Sertraline HCl [Zoloft] 50 mg PO DAILY 02/09/20 Albuterol Sulfate [Albuterol 2 puff INHALATION Q4H PRN PRN 05/17/20 Sulfate HFA] Surgical History: Surgical History (Last Reviewed 05/17/20 @ 18:[address] Evelyn Dodge DO) H/O tubal ligation (Resolved) Z98.51 Cholecystectomy planned (Resolved) Psychiatric History: Depression Lives: With Family Smoking Status: Never smoker Tobacco Use: Non-smoker Alcohol: Rare Drugs: None - *Family History Maternal Family History: Family History (Last Reviewed 05/16/20 @ 13:33 by Cheyanne Forbes CHANGE MANAGEMENT DIRECTOR, CHANGE MANAGEMENT DIRECTOR-C) Grandmother CHF (congestive heart failure) Mother Cancer Thyroid disorder Father Cancer History Items: Unknown Paternal Family History: Family History (Last Reviewed 05/16/20 @ 13:33 by Cheyanne Forbes CHANGE MANAGEMENT DIRECTOR, CHANGE MANAGEMENT DIRECTOR-C) Grandmother CHF (congestive heart failure) Mother Cancer Thyroid disorder Father Cancer History Items: Unknown Review of Systems Constitutional: Denies: Fever, Malaise Eyes: Denies: Blurred vision, Vision Change HEENT: Denies: Head Aches, Visual Changes Cardiovascular: Denies: Chest Pain, Palpitations Respiratory: Denies: Cough, Shortness of Breath, Wheezing Gastrointestinal: Denies: Abdominal Pain, Diarrhea, Nausea, Vomiting Genitourinary: Denies: Dysuria, Hematuria Musculoskeletal: Denies: Joint Pain, Muscle pain Skin: Denies: Lesions, Rash Neurological: Denies: Blurred vision, Focal weakness, Headaches Psychiatric: Denies: Anxiety, Depression Endocrine: Denies: Heat/ Cold Intolerance Hematologic/ Lymphatic: Denies: Easy Bruising, Easy Bleeding Patient Problems: Active and Suspected Problems (Last Reviewed 05/17/20 @ 18:[address] Evelyn Dodge, DO) Severe anemia (Acute) Vaginal bleeding (Acute) - Physical Exam Vitals/I&O's: Vital Signs Temp Pulse Resp BP Pulse Ox 98.2 F 88 18 106/70 96 05/18/20 02:43 05/18/20 02:43 05/18/20 02:43 05/18/20 02:43 05/18/20 02:43 Oxygen Delivery Method Room Air Weight: 243 lb 8 oz Body Mass Index (BMI) 40.5 Intake and Output for Last 24 Hours 05/16/20 05/17/20 05/18/20 23:59 23:59 23:59 Intake Total 1400 / 1400 400 / 400 Balance 1400 / 1400 400 / 400 General: Alert, Oriented x3 HEENT: Atraumatic, Normocephalic Oral: Moist Mucosa Neck: Trachea Midline, Thyroid Normal Size and Texture Lungs: Clear to auscultation, Normal air movement Cardiovascular: Regular rate, Regular Rhythm, Normal S1, Normal S2, No murmurs Abdomen: Soft, Non Tender, Non-Distended Extremities: No edema Skin: No rashes Musculoskeletal: No Tenderness to Palpation of Joints or Extremities Neurological: Neuro grossly intact Psych/Mental Status: Normal Affect Microbiology Past 72 Hours 05/17/20 17:15 Mucosa - Nose SARS-CoV-2 Antigen (Rapid) - Final Laboratory Results 05/17/20 16:40: WBC 8.9, RBC 2.31 L, Hgb 5.1 L*, Hct 17.6 L, MCV 76.2 L, MCH 22.1 L, MCHC 29.0 L, RDW Std Deviation 43.4, RDW Coeff of Mamie 15.7 H, Plt Count 391, MPV 10.0, Immature Gran % (Auto) 0.600, Neut % (Auto) 70.3 H, Lymph % (Auto) 20.4, [place] % (Auto) 6.8, Eos % (Auto) 1.5, Baso % (Auto) 0.4, Absolute Neuts (auto) 6.3, Absolute Lymphs (auto) 1.82, Nucleated RBC % 0.3, Diff Path Review August, Platelet Estimate ADEQUATE, RBC Morphology N CHROM, Hypochromasia 1+, Anisocytosis 1+, Microcytosis 1+ 05/17/20 16:40: D-Dimer Quant (PE/DVT) 0.46 05/17/20 16:40: Sodium 136, Potassium 4.3, Chloride 108 H, Carbon Dioxide 23.0, Anion Gap 5, BUN 8, Creatinine 0.87, Estim Creat Clear Calc 69.61, Est GFR (MDRD) Af Amer 88, Est GFR (MDRD) Non-Af 73, BUN/Creatinine Ratio 9.2 L, Glucose 103, Calcium 8.7, Troponin I < 0.015 05/17/20 16:40: Blood Type A POSITIVE, Antibody Screen NEGATIVE, Crossmatch See Detail 05/18/20 05:50: WBC 9.6, RBC 2.72 L, Hgb 6.5 L, Hct 21.5 L, MCV 79.0 L, MCH 23.9 L, MCHC 30.2 L, RDW Std Deviation 49.1 H, RDW Coeff of Mamie 17.1 H, Plt Count 323, MPV 9.7, Immature Gran % (Auto) 0.700, Neut % (Auto) 63.1, Lymph % (Auto) 26.3, [place] % (Auto) 7.9, Eos % (Auto) 1.5, Baso % (Auto) 0.5, Absolute Neuts (auto) 6.0, Absolute Lymphs (auto) 2.52, Nucleated RBC % 0.2 05/18/20 05:50: Sodium 137, Potassium 3.9, Chloride 107, Carbon Dioxide 23.0, Anion Gap 7, BUN 7, Creatinine 0.74, Estim Creat Clear Calc 81.84, Est GFR (MDRD) Af Amer 106, Est GFR (MDRD) Non-Af 88, BUN/Creatinine Ratio 9.4 L, Glucose 111 H, Calcium 7.7 L, TSH 3.19 05/18/20 05:50: PT 13.1, INR 1.0, APTT 24.7 Current Medications Acetaminophen (Acetaminophen 325 Mg Tablet) 650 mg PO Q6H PRN PRN PRN Reason: Pain Score 1-10/Temp > 100.7 F Last Admin: 05/17/20 21:16 Dose: 650 mg Documented by: Albuterol Sulfate (Albuterol 2.5 Mg/3 Ml Vial.Neb.) 2.5 mg INHALATION Q4H PRN PRN Reason: SOB &/OR WHEEZING Lactated Ringer's () 1,000 mls @ 125 mls/hr IV .Q8H AJAY Last Admin: 05/18/20 07:32 Dose: 125 mls/hr Documented by: Melatonin (Melatonin 3 Mg Tablet) 3 mg PO QHS PRN PRN PRN Reason: INSOMNIA Last Admin: 05/17/20 22:28 Dose: 3 mg Documented by: Metoprolol Tartrate (Metoprolol Tartrate 25 Mg Tablet) 25 mg PO DAILY [facility] Ondansetron HCl (Ondansetron 4 Mg/2 Ml Vial) 4 mg IV Q8H PRN PRN PRN Reason: NAUSEA/VOMITING Polysaccharide Iron Complex (Iron Polysaccharide Complex 150 Mg Capsule) 150 mg PO Q8 [facility] Last Admin: 05/18/20 05:57 Dose: 150 mg Documented by: Senna/Docusate Sodium (Senna/Docusate Sodium 1 Tablet) 2 tablet PO BID PRN PRN PRN Reason: Constipation Sertraline HCl (Sertraline 50 Mg Tablet) 50 mg PO DAILY [facility] Sodium Chloride (0.9% Saline Lock 10 Ml Syringe) 10 - 40 ml IV UD PRN PRN Reason: SALINE FLUSH Last Admin: 05/18/20 07:35 Dose: 10 ml Documented by: Assessment/Plan All Active Problems (Last Reviewed 05/17/20 @ 18:[address] Evelyn Dodge, DO) Severe anemia (Acute) Vaginal bleeding (Acute) H/O tubal ligation (Resolved) Cholecystectomy planned (Resolved) 50-year-old with acute vaginal bleeding and anemia Pelvic ultrasound shows possible endometrial polyps and thickened lining. Patient continue to have bleeding recommend transfusing an additional 2 units of PRBCs and plan D&C hysteroscopy Jennifer ablation. Discussed with patient that if pathology comes back precancerous or cancerous she will need additional surgical management and patient voices understanding and wants to proceed with surgery. After discussing the patient's diagnosis and treatment plan options, patient wishes to proceed with surgical management. I have discussed with the patient the risks, benefits, and alternatives of the procedure which include but are not limited to risks of anesthesia, bleeding, infection, possible damage to bowel, bladder, or surrounding vasculature which could lead to additional surgery to evaluate any complications. Patient agrees to procedure and wishes to proceed. Multi Select Codes - Visit Charges Office Visit/Consults: 70526 IP Consult L3
--- NOTE | 2020-05-18 08:16 | OP.PCM_ITS ---
Problem List (1) Severe anemia Status: Acute (2) Vaginal bleeding Status: Acute (3) BMI greater than 40 Status: Chronic (4) CECILIA (obstructive sleep apnea) Status: Chronic Comment: overall AHI of 24.7 (5) Hypertension Status: Chronic (6) Depression Status: Chronic (7) Asthma Status: Chronic Qualifiers: (8) GERD (gastroesophageal reflux disease) Status: Chronic Report of Operation Date of Procedure: 05/18/20 Pre-Operative Diagnosis: Severe anemia and acute vaginal bleeding Post-Operative Diagnosis: same Surgery/Procedure Performed:: D&C hysteroscopy Jennifer ablation Description of Surgical Findings:: thickened lining no gross abnormalities good vaginal access minimal descent Type of Anesthesia:: Local MAC Special Medications: none Specimen's removed: Endometrial curettings Drains: none Estimated Blood Loss (mL): 50 Fluids Replaced: Crystalloid Description of Procedure: Patient was prepped and draped in a normal sterile fashion under MAC anesthesia. A weighted speculum was placed in the vagina and the anterior lip of the cervix was grasped with a single-tooth tenaculum. A paracervical block was placed with 1% lidocaine. Cervix was progressively dilated to allow passage of a 5 mm hysteroscope. The lining was fully visualized and noted to have a thickened appearance. Uterine sounded to 10 cm. Curettage was performed and a large amount of tissue was removed, sent to pathology. The Jennifer device was opened and the cavity length was found to be 6 cm. Device was inserted into the uterus and balloon inflated and device deployed. Integrity of the cavity was confirmed and a 2 minute treatment cycle was completed without complication. All instrume nts were removed from the vagina and excellent hemostasis was noted. Patient was awoken and taken to recovery in stable condition. Grafts/Implants Used: none - Complications none - Admit VTE Documentation VTE Present on Admission: No VTE Mechan Device Prophylaxis: SCD's Multi Select Codes - Urinary/Genital Urinary/Genital CPT Codes: 39132 Jennifer/Novasure
--- NOTE | 2020-05-18 08:19 | PCM.DC.D&C ---
Discharge Diet: No Restrictions Discharge Activity: Return to Normal Activity, May Shower, May Take a Tub Bath Allergies/Adverse Reactions: Allergies No Known Allergies Allergy (Verified 05/17/20 16:15) Medications to take at Discharge Metoprolol Tartrate [Lopressor (Beta Shauna)] 25 mg PO DAILY 11/02/15 Cholecalciferol (Vitamin D3) [D3-2000] 2,000 unit PO DAILY 02/09/20 Sertraline HCl [Zoloft] 50 mg PO DAILY 02/09/20 Albuterol Sulfate [Albuterol Sulfate HFA] 2 puff INHALATION Q4H PRN PRN 05/17/20 Norethindrone [Aygestin] 5 mg PO DAILY 30 Days #30 tab 05/18/20 The following prescriptions were given: Norethindrone [Aygestin] 5 mg PO DAILY 30 Days #30 tab Transmission Status: Pending to [facility] Primary Care Physician: [facility] Salma Alford [Primary Care Provider] - Test Results: Test results from this visit will be discussed in further detail at your follow-up appointment, if applicable. Please Follow Up With: Alexa Ann MD - [phone]
[2020-05-18] MEDS: Metoprolol Tartrate 25 MG Tablet PO (08:40)
[2020-05-18 08:55] LABS: Internal QC Validated? YES +Cl - CLEAR BKGD; Pregnancy, Serum, hCG Quali. NEGATIVE Negative
--- NOTE | 2020-05-18 09:07 | NURSING ---
pt transported off unit at this time via bed, phone report called to surgery.
--- NOTE | 2020-05-18 09:30 | EMB_PTH ---
PATIENT: ROBIN SELF LOC: MS3 U#:[id number] AGE/SX: 50/F ROOM: [facility] RE05/17/[address]: Dr. Bong Lemus DO : 1970 BED: 1 DIS: 05/18/2020 SPEC #: [id number] RECD: 05/20/20 07:02 STATUS: EMIL RERandy #: [id number] ANA M: 05/18/20 09:[address]: Alexa Ann DEPT: SURGICAL PATHOLOGY RECD BY: Lilliana Mendoza ENTERED: 05/20/20 09:56 SP TYPE: ENDOM BX/C OTHR DR: DO Dr. Evelyn Vitale DO Dr. Sharon Marcanthony, MD [facility] Tissues: Endometrium, NOS Procedures: Surgery Specimen Level IV Comments: @ Ordering doctor for SUIV edited from to @ by TONY at 05/20/20 1425 @ Submitting doctor edited from to @ by RGOOD at 05/20/20 1425 HEADER OPERATION: Hysteroscopy, D & C Jennifer PRE-OP DIAGNOSIS: Abnormal uterine bleeding, acute anemia TISSUE SUBMITTED: Endometrial curettings MICROSCOPIC DIAGNOSIS Endometrial curettings: Disordered proliferative endometrium with extensive glandular and stromal breakdown. Mild chronic endometritis. Fragments of benign ecto- and endocervical mucosa with acute and chronic inflammation and squamous metaplasia. DESTINEY:yesica 05/21/2020 COMMENT Case has been reviewed in consultation with Dr. Jasmine who concurs with the above diagnosis. IDC:AM MICROSCOPIC DESCRIPTION Slides are reviewed. GROSS DESCRIPTION Received in fixative is one container labeled with the patient's name and designated endometrial curettings. The specimen consists of multiple fragments of hemorrhagic soft tissue that in aggregate measure 7.5 x 3 x 0.3 cm. The specimen is totally submitted in three cassettes. / DESTNIEY:yesica 05/20/20 TC:5 CPT: 28916
[2020-05-18] MEDS: Lidocaine 1% (5 ml sdv) 5 ML Vial (09:35)
[2020-05-18] MEDS: Sertraline 50 MG Tablet PO (11:09)
--- NOTE | 2020-05-18 16:00 | PN_ITS ---
Patient Problems: Active and Suspected Problems (Last Reviewed 05/17/20 @ 18:[address] Eevlyn Dodge, DO) Severe anemia (Acute) Vaginal bleeding (Acute) Subjective: feels much better after transfusion Vitals/I&O's: Vital Signs Temp Pulse Resp BP Pulse Ox 36.7 C 82 16 114/66 95 05/18/20 14:35 05/18/20 14:35 05/18/20 14:35 05/18/20 14:35 05/18/20 14:35 Oxygen Delivery Method Room Air Weight: 110.45 kg Body Mass Index (BMI) 40.5 Intake and Output for Last 24 Hours 05/16/20 05/17/20 05/18/20 23:59 23:59 23:59 Intake Total 1400 / 1400 1484.58 / 1484.58 Output Total 50 / 50 Balance 1400 / 1400 1434.58 / 1434.58 General: Alert, No apparent distress HEENT: Atraumatic, Normocephalic Oral: Moist Mucosa, No Gingival or Mucosal Lesions/ Ulcerations Neck: No Nodes, Thyroid Normal Size and Texture Lungs: Clear to auscultation, Normal air movement, No rhonchi, No wheeze Cardiovascular: Regular rate, Regular Rhythm, Normal S1, Normal S2, No murmurs Abdomen: Bowel Sounds Present, Soft, Non Tender, Non-Distended, No Hepato- splenomegaly Extremities: No edema, No Calf Tenderness Microbiology Past 72 Hours 05/17/20 17:15 Mucosa - Nose SARS-CoV-2 Antigen (Rapid) - Final Laboratory Results 05/17/20 16:40: WBC 8.9, RBC 2.31 L, Hgb 5.1 L*, Hct 17.6 L, MCV 76.2 L, MCH 22.1 L, MCHC 29.0 L, RDW Std Deviation 43.4, RDW Coeff of Mamie 15.7 H, Plt Count 391, MPV 10.0, Immature Gran % (Auto) 0.600, Neut % (Auto) 70.3 H, Lymph % (Auto) 20.4, [place] % (Auto) 6.8, Eos % (Auto) 1.5, Baso % (Auto) 0.4, Absolute Neuts (auto) 6.3, Absolute Lymphs (auto) 1.82, Nucleated RBC % 0.3, Diff Path Review August, Platelet Estimate ADEQUATE, RBC Morphology N CHROM, Hypochromasia 1+, Anisocytosis 1+, Microcytosis 1+ 05/17/20 16:40: D-Dimer Quant (PE/DVT) 0.46 05/17/20 16:40: Sodium 136, Potassium 4.3, Chloride 108 H, Carbon Dioxide 23.0, Anion Gap 5, BUN 8, Creatinine 0.87, Estim Creat Clear Calc 69.61, Est GFR (MDRD) Af Amer 88, Est GFR (MDRD) Non-Af 73, BUN/Creatinine Ratio 9.2 L, Glucose 103, Calcium 8.7, Troponin I < 0.015 05/17/20 16:40: Blood Type A POSITIVE, Antibody Screen NEGATIVE, Crossmatch See Detail 05/17/20 16:40: Crossmatch See Detail 05/18/20 05:50: WBC 9.6, RBC 2.72 L, Hgb 6.5 L, Hct 21.5 L, MCV 79.0 L, MCH 23.9 L, MCHC 30.2 L, RDW Std Deviation 49.1 H, RDW Coeff of Mamie 17.1 H, Plt Count 323, MPV 9.7, Immature Gran % (Auto) 0.700, Neut % (Auto) 63.1, Lymph % (Auto) 26.3, [place] % (Auto) 7.9, Eos % (Auto) 1.5, Baso % (Auto) 0.5, Absolute Neuts (auto) 6.0, Absolute Lymphs (auto) 2.52, Nucleated RBC % 0.2 05/18/20 05:50: Sodium 137, Potassium 3.9, Chloride 107, Carbon Dioxide 23.0, Anion Gap 7, BUN 7, Creatinine 0.74, Estim Creat Clear Calc 81.84, Est GFR (MDRD) Af Amer 106, Est GFR (MDRD) Non-Af 88, BUN/Creatinine Ratio 9.4 L, Glucose 111 H, Calcium 7.7 L, TSH 3.19 05/18/20 05:50: PT 13.1, INR 1.0, APTT 24.7 05/18/20 08:32: Serum , Qual NEGATIVE Current Medications Acetaminophen (Acetaminophen 325 Mg Tablet) 650 mg PO Q6H PRN PRN PRN Reason: Pain Score 1-10/Temp > 100.7 F Last Admin: 05/17/20 21:16 Dose: 650 mg Documented by: Albuterol Sulfate (Albuterol 2.5 Mg/3 Ml Vial.Neb.) 2.5 mg INHALATION Q4H PRN PRN Reason: SOB &/OR WHEEZING Lactated Ringer's () 1,000 mls @ 125 mls/hr IV .Q8H [facility] Last Infusion: 05/18/20 08:51 Dose: 0 mls/hr Documented by: Melatonin (Melatonin 3 Mg Tablet) 3 mg PO QHS PRN PRN PRN Reason: INSOMNIA Last Admin: 05/17/20 22:28 Dose: 3 mg Documented by: Metoprolol Tartrate (Metoprolol Tartrate 25 Mg Tablet) 25 mg PO DAILY [facility] Last Admin: 05/18/20 08:40 Dose: 25 mg Documented by: Ondansetron HCl (Ondansetron 4 Mg/2 Ml Vial) 4 mg IV Q8H PRN PRN PRN Reason: NAUSEA/VOMITING Polysaccharide Iron Complex (Iron Polysaccharide Complex 150 Mg Capsule) 150 mg PO Q8 [facility] Last Admin: 05/18/20 14:34 Dose: 150 mg Documented by: Senna/Docusate Sodium (Senna/Docusate Sodium 1 Tablet) 2 tablet PO BID PRN PRN PRN Reason: Constipation Sertraline HCl (Sertraline 50 Mg Tablet) 50 mg PO DAILY [facility] Last Admin: 05/18/20 11:09 Dose: 50 mg Documented by: Sodium Chloride (0.9% Saline Lock 10 Ml Syringe) 10 - 40 ml IV UD PRN PRN Reason: SALINE FLUSH Last Admin: 05/18/20 14:34 Dose: 10 ml Documented by: STROKE Vital Signs/Narrative: Vital Signs Temp Pulse Resp BP Pulse Ox 05/18/20 14:35 36.7 C 82 16 114/66 95 05/18/20 13:35 36.7 C 80 16 109/67 95 05/18/20 12:35 36.6 C 83 16 110/73 98 05/18/20 12:20 36.5 C L 84 16 106/66 97 Medical Necessity - Tobacco Use Smoking Status: Never smoker Tobacco Use: Non-smoker Assessment/Plan All Active Problems (Last Reviewed 05/17/20 @ 18:[address] Evelyn Dar, DO) Severe anemia (Acute) Vaginal bleeding (Acute) H/O tubal ligation (Resolved) Cholecystectomy planned (Resolved) 1. acute blood loss anemia: 2/2 menorrhagia * transfused 4 units * will have pt take FeSO4 QOD 2. menorrhagia * underwent D&C hysterscopy today by Dr. Ann * follow up as outpt * bridger MENDIOLA planning. OBSV E&M: [id number] Subsequent observation care L2
[2020-05-18 16:56] LABS: Hematocrit 28.5 % (37-47); Mean Corp Hgb Conc 31.6 g/dL (32-36); Mean Corpuscular Hgb 25.6 pg (27.0-32.0); Platelet Count 356 K/mm3 (150-450); RBC Distribution Width CV 16.7 % (11.6-14.6); RBC Distribution Width SD 48.6 fl (35.1-43.9); Red Blood Count 3.52 M/mm3 (4.2-5.4); White Blood Count 11.3 K/mm3 (4.4-11.0)
[2020-05-20 13:31] LABS: Pathologist Review Reviewed
== END 2020-05-18 17:58 | disposition home or self-care (01) ==
LOC: ED 18:19 → MS3 18:45
PROVIDERS: Obstetrics & Gynecology; Admitting Provider Internal Medicine; Emergency Provider Emergency Medicine
PROC: 0U5B8ZZ Destruction of Endometrium, Via Natural or Artificial Opening Endoscopic (ICD-10-PCS; CPT 58558; principal; 2020-05-18 09:30)
DX: N71.1 Chronic inflammatory disease of uterus (principal); N93.9 Abnormal uterine and vaginal bleeding, unspecified; R06.02 Shortness of breath; G47.33 Obstructive sleep apnea (adult) (pediatric); I10 Essential (primary) hypertension; K21.9 Gastro-esophageal reflux disease without esophagitis; F32.9 Major depressive disorder, single episode, unspecified; J45.909 Unspecified asthma, uncomplicated; E66.01 Morbid (severe) obesity due to excess calories; Z68.41 Body mass index [BMI] 40.0-44.9, adult; E55.9 Vitamin D deficiency, unspecified; D62 Acute posthemorrhagic anemia; F41.9 Anxiety disorder, unspecified; I25.2 Old myocardial infarction; N92.0 Excessive and frequent menstruation with regular cycle; Z79.899 Other long term (current) drug therapy
CPT/HCPCS: 00952; 58563; 36415; 36430; 71045; 76830; 80048; 84443; 84484; 84703; 85025; 85027; 85379; 85610; 85730; 86850; 86900; 86901; 86920; 86922; 87426; 88305; 93005; 96360; 96361; 99218; 99251; 99283; J7030; J7040; J7120; P9016; A4216; G0378; G0463; J2405

== ENCOUNTER → 2020-05-30 10:00 | Outpatient (CLI) | payer MEDICARE, SELFPAY ==
[2020-05-18 08:58] VITALS: BMI 40.5
== END ==
PROVIDERS: Visit Provider Nurse Practitioner Acute Care
DX: Z46.89 Encounter for fitting and adjustment of other specified devices (principal)

== ENCOUNTER → 2020-06-03 16:26 | Outpatient (CLI) | payer MEDICARE, SELFPAY ==
[2020-06-03 17:33] LABS: Absolute Lymphocyte Count 2.67 X10^3/uL (0.83-4.51); Absolute Neutrophil Count 5.9 X10^3/uL (2.0-7.7); Basophil# 0.06 X10^3/uL; Basophil% 0.6 % (0-1); Eosinophil# 0.17 X10^3/uL; Eosinophils% 1.8 % (0-5); Hematocrit 35.5 % (37-47); Hemoglobin 10.4 g/dL (12.0-15.0); Lymphocyte # 2.67 X10^3/ul (4.0); Mean Corp Hgb Conc 29.3 g/dL (32-36); Mean Corpuscular Hgb 23.9 pg (27.0-32.0); Mean Corpuscular Volume 81.6 fL (81-99); Mean Platelet Vol. 10.6 fl (6.2-12.0); Monocyte# 0.71 X10^3/uL; Monocyte% 7.4 % (0-10); NRBC Flagged by Analyzer 0 % (0-5); Neutrophil # 5.91 X10^3/uL (2.7-7.7); Neutrophil % 61.9 % (47-70); Platelet Count 451 K/mm3 (150-450); RBC Distribution Width CV 18.7 % (11.6-14.6); RBC Distribution Width SD 56.3 fl (35.1-43.9); Red Blood Count 4.35 M/mm3 (4.2-5.4); White Blood Count 9.6 K/mm3 (4.4-11.0)
== END ==
PROVIDERS: Referring Provider Obstetrics & Gynecology; Visit Provider Obstetrics & Gynecology
DX: D64.9 Anemia, unspecified (principal)
CPT/HCPCS: 36415; 85025

== ENCOUNTER → 2020-06-12 13:27 | Outpatient (CLI) | payer MEDICARE, SELFPAY ==
[2020-05-16 13:21] VITALS: BMI 40.6
[2020-06-12 09:34] LABS: Absolute Lymphocyte Count 2.45 X10^3/uL (0.83-4.51); Absolute Neutrophil Count 5.2 X10^3/uL (2.0-7.7); Basophil# 0.06 X10^3/uL; Basophil% 0.7 % (0-1); Eosinophil# 0.15 X10^3/uL; Eosinophils% 1.8 % (0-5); Hematocrit 36.5 % (37-47); Hemoglobin 10.8 g/dL (12.0-15.0); Lymphocyte # 2.45 X10^3/ul (4.0); Lymphocyte % 28.8 % (19-41); Mean Corp Hgb Conc 29.6 g/dL (32-36); Mean Corpuscular Hgb 24.6 pg (27.0-32.0); Mean Corpuscular Volume 83.1 fL (81-99); Mean Platelet Vol. 10.5 fl (6.2-12.0); NRBC Flagged by Analyzer 0 % (0-5); Neutrophil # 5.24 X10^3/uL (2.7-7.7); Neutrophil % 61.5 % (47-70); Platelet Count 357 K/mm3 (150-450); RBC Distribution Width CV 18.6 % (11.6-14.6); RBC Distribution Width SD 57.1 fl (35.1-43.9); Red Blood Count 4.39 M/mm3 (4.2-5.4); White Blood Count 8.5 K/mm3 (4.4-11.0)
[2020-06-12 09:55] LABS: Anion Gap 6 (5-15); BUN 6 mg/dL (7-18); BUN/Creat Ratio 7.1 RATIO (10-20); Calcium,Total 8.7 mg/dL (8.5-10.1); Chloride 110 mmol/L (98-107); Creatinine, Serum 0.84 mg/dL (0.55-1.02); EST Glomerular Filtration Rate 76 mL/min (>60); Est Glom Filt Rate - Afr Amer 92 mL/min (>60); Glucose 107 mg/dL (74-106); Potassium 3.6 mmol/L (3.5-5.1); Sodium Level 140 mmol/L (136-145); Vitamin D,25 Hydroxy 22.2 ng/mL
== END ==
PROVIDERS: Family Medicine
DX: E55.9 Vitamin D deficiency, unspecified (principal); I10 Essential (primary) hypertension; R00.8 Other abnormalities of heart beat
CPT/HCPCS: 36415; 80048; 82306; 85025; 93225; 93226

== ENCOUNTER → 2020-06-14 13:18 | Outpatient (CLI) | payer MEDICARE, SELFPAY ==
[2020-05-18 08:58] VITALS: BMI 40.5
--- NOTE | 2020-06-14 13:19 | BI_ITS ---
MAMMOGRAPHY - BILATERAL SCREENING REASON FOR EXAM: Female, 50 years old. Routine annual screening examination. PERTINENT HISTORY: Mother with breast cancer. TECHNIQUE: Digital bilateral breast vimal (3D mammographic acquisition) in the CC and MLO projections. 2-D mediolateral oblique (MLO) and craniocaudad (CC) views of both breasts were obtained. CAD: Full Field Digital Mammography with Computer Added Detection was performed. COMPARISON: Comparison is made with prior study dated 12/31/2017 and 10/28/2016. FINDINGS: Breast Composition: There are scattered areas of fibroglandular density. There are no dominant masses or suspicious calcifications. No other significant abnormalities are identified. There has been no significant change since the prior study. BI/SCRN MAMM (CAD)W/VIMAL BILAT IMPRESSION: Stable bilateral screening mammogram. Yearly follow-up mammogram recommended. (A) ASSESSMENT CATEGORY: BIRADS Category 1: Negative. A letter regarding these results will be sent to the patient by the facility within 30 days. Approximately 10% of breast cancers are not detected by mammography. A normal mammogram should not delay biopsy of a clinically suspicious abnormality. [id number] Electronically Signed: Jhon Gonzalez MD at 14:06 EST , Service support ,
== END ==
PROVIDERS: Referring Provider Obstetrics & Gynecology; Visit Provider Obstetrics & Gynecology
DX: Z12.31 Encounter for screening mammogram for malignant neoplasm of breast (principal)
CPT/HCPCS: 77063; 77067

== ENCOUNTER → 2020-06-28 12:49 | Outpatient (CLI) | payer MEDICARE, SELFPAY ==
[2020-06-28 11:08] VITALS: BMI 41.1
[2020-06-28 13:57] LABS: Vitamin B12 322 pg/mL (211-911)
[2020-06-28 14:09] LABS: Ferritin 13 ng/mL (8-252); Iron 33 ug/dL (50-170); Iron Binding Capacity,Total 384 ug/dL (250-450)
== END ==
LOC: LAB 12:50
PROVIDERS: Referring Provider Nurse Practitioner Adult Health; Visit Provider Nurse Practitioner Adult Health
DX: D64.9 Anemia, unspecified (principal)
CPT/HCPCS: 36415; 82607; 82728; 82746; 83540; 83550

== ENCOUNTER 2020-07-16 08:13 | Day surgery (SDC) | payer MEDICARE, SELFPAY ==
[2020-07-03 13:09] VITALS: BMI 40.6
[2020-07-15 13:32] LABS: Absolute Lymphocyte Count 1.96 X10^3/uL (0.83-4.51); Absolute Neutrophil Count 5.9 X10^3/uL (2.0-7.7); Basophil# 0.05 X10^3/uL; Basophil% 0.6 % (0-1); Eosinophil# 0.13 X10^3/uL; Eosinophils% 1.5 % (0-5); Hematocrit 42.3 % (37-47); Lymphocyte # 1.96 X10^3/ul (4.0); Lymphocyte % 22.7 % (19-41); Mean Corp Hgb Conc 30.7 g/dL (32-36); Mean Corpuscular Hgb 25.1 pg (27.0-32.0); Mean Corpuscular Volume 81.8 fL (81-99); Mean Platelet Vol. 10.5 fl (6.2-12.0); Monocyte# 0.61 X10^3/uL; Monocyte% 7.1 % (0-10); NRBC Flagged by Analyzer 0 % (0-5); Neutrophil # 5.85 X10^3/uL (2.7-7.7); Neutrophil % 67.6 % (47-70); Platelet Count 294 K/mm3 (150-450); RBC Distribution Width CV 18.2 % (11.6-14.6); RBC Distribution Width SD 53.5 fl (35.1-43.9); Red Blood Count 5.17 M/mm3 (4.2-5.4); White Blood Count 8.6 K/mm3 (4.4-11.0)
[2020-07-15 13:54] LABS: Magnesium 1.9 mg/dL (1.6-2.6)
[2020-07-16] VITALS (10 sets, daily range): BP systolic 100–147; BP diastolic 65–80; PULSE 71–90; RESP 16–18; TEMP 36.1–37.5; O2SAT 93–97; BMI 41.0
--- NOTE | 2020-07-16 08:35 | HP.PCM_ITS ---
- Problem List (1) Abnormal uterine bleeding (AUB) Status: Acute Comment: plan LAVH BS. - Michael. plan SDS (2) History of hysteroscopy Status: Acute Comment: D&C ablation (3) Severe anemia Status: Acute Comment: s/p 2 units transfused, iron. (4) Vaginal bleeding Status: Acute Comment: s/p sandeep ablation- failed with persistent bleeding, recommend LAVH BS cystoscopy, nl path (5) Asthma Status: Chronic Qualifiers: (6) BMI greater than 40 Status: Chronic History and Physical Date of Admission: 07/16/20 Intake Vital Signs 07/03/20 Height 5 ft 5 in 07/03/20 Weight: 244 lb 07/03/20 BMI 40.6 07/03/20 BP 106/82 H Intake Visit Reasons: PRE OP LAVH, BS CYSTO ERAS Chief Complaint: pre op LAVH BS CYSTO ERAS Lead Pharmacy Technician Required: No Is patient in pain?: No Allergies No Known Allergies Allergy (Verified 07/03/20 13:09) Medications Metoprolol Tartrate [Lopressor (beta tayla)] 25 mg PO DAILY 11/02/15 [History Confirmed 07/03/20] Cholecalciferol (Vitamin D3) [D3-2000] 2,000 unit PO DAILY 02/09/20 [History Confirmed 07/03/20] Sertraline HCl [Zoloft] 50 mg PO DAILY 02/09/20 [History Confirmed 07/03/20] Albuterol Sulfate [Albuterol Sulfate HFA] 2 puff INHALATION Q4H PRN PRN 05/17/20 [History Confirmed 06/03/20] Ferrous Sulfate 325 mg PO QODAY #30 tab 05/18/20 [Rx Confirmed 07/03/20] doxycycline monohydrate 100 mg capsule 100 mg PO BID #28 cap 06/03/20 [Rx Confirmed 07/03/20] norethindrone acetate 5 mg tablet 5 mg PO .COMPLEX #30 tab 06/06/20 [Rx Confirmed 07/03/20] Is last menstrual period known: No Post menopausal: No Patient : No : No [facility] Medical History History of hysteroscopy (Acute ~05/18/20) Hypertension (Chronic) Depression (Chronic) Asthma (Chronic) GERD (gastroesophageal reflux disease) (Chronic) Surgical History H/O dilation and curettage (Acute) Cholecystectomy planned (Resolved) H/O tubal ligation (Resolved) Family History Grandmother CHF (congestive heart failure) Mother Cancer Thyroid disorder Father Cancer Social History (Updated 07/03/20 @ 13:[address] Alexa Ann MD) Smoking Status: Never smoker alcohol intake: never substance use type: does not use caffeine: Yes what type of physical activity do you participate in: walking seatbelt use: always do you feel safe at home: Yes additional social history: single- disability HPI PRE OP LAVH, BS CYSTO ERAS: Details: ROBIN SELF is a 50 year old who presents for preop visit for AUB, to have an LAVH. Pregancy History 1 Elective abortions Hx Para 1 Spontaneous abortions Hx # Term Pregnancies Ectopic pregnancies Hx # Pregnancies Multiple births # of living children Past Pregnancies Del. Date Name GA/Weeks Outcome Route Bth Weight Infant Gen Labor Lgth Anesthesia Del Locatn Provider FOB Unknown 1996 Zach live - full term ROS Const Constitutional: Denies fatigue, fever(s), headache(s), increased appetite, poor appetite, weight gain or weight loss Cardio Card: Denies chest pain Resp Resp: Denies cough or dyspnea GI GI: Reports as per HPI; denies abdominal pain, constipation, nausea or vomiting : Reports as per HPI; denies difficulty urinating, painful urination, nipple discharge, urinary frequency, urinary incontinence, urinary hesitancy, urinary urgency, vaginal di scharge, vaginal dryness, vaginal odor or vaginal itching Skin Skin/Breast: Denies change in hair, breast lump, breast pain, breast skin changes or nipple discharge Exam Const General: cooperative, healthy appearing, comfortable, no acute distress, well developed Nutritional Appearance: average body habitus Orientation: alert HENNH Head: normal to inspection, normocephalic Neck Neck: normal visual inspection, trachea midline Thyroid: thyroid normal Resp Effort & Inspection: normal respiratory effort GI Inspection: normal to inspection, non-distended Palpation: soft, no hepatosplenomegaly General: bladder normal to palpation External Female Exam: normal external appearance, normal appearance of the urethra Urethra: normal appearance of the urethra, normal palpation, no discharge Speculum Exam - Vagina: normal appearance of the vagina, normal vaginal discharge Speculum Exam - Cervix: normal appearance of the cervix, nontender Bimanual Exam- Vagina & Uterus: normal bimanual exam, uterine size normal, bladder normal to palpation, uterine shape normal, No cervical tenderness, uterine mobility normal, uterine consistency normal, normal cervical palpation, uterus non-tender Bimanual Exam- Adnexa, other: normal adnexae, adnexae mobile, no adnexal masses, pelvic support normal Pelvic Support: normal Skin General: no rashes or lesions noted Assessment & Plan Problems 1. Abnormal uterine bleeding (AUB) N93.9 plan TIEN ZHANG. gt Rodriguez. plan SDS Plan After discussing the patient's diagnosis and treatment plan options, patient wishes to proceed with surgical management. I have discussed with the patient the risks, benefits, and alternatives of the procedure which include but are not limited to risks of anesthesia, bleeding, infection, possible damage to bowel, bladder, or surrounding vasculature which could lead to additional surgery to evaluate any complications. Patient agrees to procedure and wishes to proceed. ACOG/uptodate references given for additional information regarding procedure. Coding Level of Care Code No Charge Diagnoses Abnormal uterine bleeding (AUB) N93.9 UPDATE- I have seen the patient and performed any clinically relevant updates to the history and physical exam. Alexa Ann MD
[2020-07-16 09:01] LABS: Bedside Glucose 202 mg/dL (70-110)
[2020-07-16 09:07] LABS: Internal QC Validated? YES +Cl - CLEAR BKGD
[2020-07-16] MEDS: Scopolamine 1mg/72hr Patch 1 PATCH TD (09:07)
[2020-07-16] MEDS: Enoxaparin 40 MG/0.4 ML Syringe SC (09:07)
[2020-07-16] MEDS: Celecoxib 200 MG Capsule 400 MG PO (09:08)
[2020-07-16] MEDS: Acetaminophen 500 MG Tablet 1000 MG PO ×2 (09:08→16:26)
[2020-07-16] MEDS: Phenazopyridine 95 MG Tablet 190 MG PO (09:08)
[2020-07-16] MEDS: Lactated Ringers 1,000 ML 40 ML IV (09:09)
[2020-07-16] MEDS: dexAMETHasone 10 MG/ML Vial 8 MG IV (09:09)
[2020-07-16] MEDS: Insulin Lispro 100 UNIT/ML INSULN.PEN SC (09:09)
[2020-07-16] MEDS: Gabapentin 600 MG Tablet PO (09:09)
[2020-07-16 09:10] LABS: Pregnancy, Urine Negative Negative
--- NOTE | 2020-07-16 10:15 | HYST_PTH ---
PATIENT: ROBIN SELF LOC: [facility] [place][id number] AGE/SX: 50/F ROOM: RE07/16/[address]: Dr. Alexa Ann MD : 1970 BED: DIS: 07/16/2020 SPEC #: [id number] RECD: 07/16/20 12:42 STATUS: EMIL RERandy #: [id number] ANA M: 07/16/20 10:[address]: Alexa Ann DEPT: SURGICAL PATHOLOGY RECD BY: Lilliana Mendoza ENTERED: 07/16/20 13:06 SP TYPE: HYSTERECT OTHR DR: Yesi Cartwright, [employer] MEMBER-C [facility] Tissues: Uterus, NOS Procedures: Surgery Specimen Level V HEADER OPERATION: ERAS, hysterectomy, LAVH, salpingectomy, cysto PRE-OP DIAGNOSIS: Abnormal uterine bleeding TISSUE SUBMITTED: Uterus, bilateral fallopian tubes MICROSCOPIC DIAGNOSIS Uterus, bilateral fallopian tubes, hysterectomy and bilateral salpingectomy: Cervix - chronic cystic cervicitis and mild acute inflammation. Endometrium - proliferative endometrium. - Focal changes consistent with status post curettage and endometrial ablation. Myometrium - Focal adenomyosis. Right fallopian tube - focal mild chronic inflammation. Left fallopian tube - no pathologic diagnosis. Left paratubal cysts. SJ:rg 07/17/2020 COMMENT Please make reference to previous specimen ([id number]) endometrial curettings with diagnosis of disordered proliferative endometrium with extensive glandular and stromal breakdown and mild chronic endometritis. MICROSCOPIC DESCRIPTION Slides are reviewed. GROSS DESCRIPTION Received in fixative is one container labeled with the patient's name and designated uterus, bilateral fallopian tubes. The specimen consists of a hysterectomy specimen consisting of uterus with cervix and attached bilateral fallopian tubes. The uterus with cervix weighs 152 gm and measures 11 x 7 x 5 cm. The serosal surface is glistening. The ectocervical mucosa is unremarkable. The external os is oval and patulous in contour. The endometrial cavity measures 6 cm in length and 2 cm in width and focally shows area of narrowing. The endometrium is abrams, glistening without any mass lesion and measures 0.1 cm in thickness. Sections of the uterine wall do not reveal any obvious mass lesion. The uterine wall measures up to 2.5 cm in thickness. The right fallopian tube measures 5.5 cm in length and 0.8 cm in diameter. The fimbrial end is identified. The proximal end of the fallopian tube shows two Filshie clips which appear intact. Sections reveal unremarkable cut surfaces. The left fallopian tube is similar appearance to right and measures 7 cm in length and 0.7 cm in diameter. The proximal end shows two Filshie clips which appear intact. Two paratubal cysts are noted each measuring 1?cm in greatest dimension. [employer] sections are submitted in eight cassettes as follows: 1??anterior cervix, 2 - posterior cervix, 3 & 4 - anterior uterine wall, 5 & 6 - posterior uterine wall, 7 - right fallopian tube, 8 - left fallopian tube and paratubal cyst. / DESTINEY:yesica 07/16/20 TC:5 CPT: 53812
[2020-07-16] MEDS: Cefazolin 2 GM in 0.9% Normal Saline 100 ML IV (10:33)
--- NOTE | 2020-07-16 10:53 | OP.PCM_ITS ---
Problem List (1) Abnormal uterine bleeding (AUB) Status: Acute Comment: plan LAVH BS. brother- Michael. plan SDS (2) History of hysteroscopy Status: Acute Comment: D&C ablation (3) Severe anemia Status: Acute Comment: s/p 2 units transfused, iron. (4) Vaginal bleeding Status: Acute Comment: s/p sandeep ablation- failed with persistent bleeding, recommend LAVH BS cystoscopy, nl path (5) Asthma Status: Chronic Qualifiers: (6) BMI greater than 40 Status: Chronic Report of Operation Date of Procedure: 07/16/20 Pre-Operative Diagnosis: aub anemia Post-Operative Diagnosis: same Surgery/Procedure Performed:: lavh bs Description of Surgical Findings:: enlarged uterus tobacco wrapping machine tender: Linda Seaman Type of Anesthesia:: General Special Medications: floseal Specimen's removed: uterus tubes Drains: motley Estimated Blood Loss (mL): 50 Fluids Replaced: crystlaloid Description of Procedure: Patient received preoperative antibiotics and SCDs were on preoperatively. Patient was taken back to the operating room and placed in the dorsal lithotomy position. General anesthesia was induced and patient was prepped and draped in normal sterile fashion. Uterine manipulator was placed inside the uterus and Motley catheter placed in the bladder. The umbilicus was grasped with towel clamps and an intraumbilical incision was made after injecting with quarter percent Marcaine and a Veress needle entered into the abdomen confirmed to be intra-abdominal with a low opening pressure. Abdomen was insufflated with CO2 gas and the Veress needle removed and the 5 mm trocar was placed under direct visualization without complication. Right and left lower quadrants were transilluminated and injected with quarter percent Marcaine and 5 mm ports placed under direct visualization. Pelvis was well visualized see operative findings for additional information. Bilateral fallopian tubes were identified and transected with the LigaSure device across the mesosalpinx to the level of the utero-ovarian ligament which was also transected with the LigaSure device. The broad ligament was opened up by transecting the round ligament bilaterally and skeletonizing the uterine vessels bilaterally and creating a bladder flap using the LigaSure device. The uterine arteries were transected bilaterally with good visualization of the bladder and the ureters were seen to be inferior lateral to the operative area. Attention was then paid to the vaginal portion of the procedure and the cervix was grasped with Alanis clamps and circumferentially injected with dilute vasopressin. A circumferential incision was made and the vaginal mucosa was mobilized off posteriorly and the cul-de-sac entered into sharply and a longneck speculum placed. The anterior cul-de-sac was then identified and entered into sharply. The uterosacral ligaments were clamped cut and suture ligated with 0 Monocryl bilaterally followed by the cardinal ligaments which were clamped cut and suture ligated bilaterally with 0 Monocryl. The uterus serially descended and was removed without difficulty with minimal morcellation. Pelvic sidewall pedicles were checked and noted to have excellent hemostasis. The vaginal mucosa was reapproximated incorporating the posterior peritoneum. This was reapproximated using 0 Vicryl [id number] sutures. Excellent hemostasis was noted. The cystoscopy was then performed and bilateral ureteral strong spray was noted and the bladder was noted to have no abnormality or lesions seen. Motley catheter was replaced and then attention paid to the abdominal portion of the procedure again. The pelvis and cul-de-sac was well visualized and no significant active bleeding noted but some raw areas were seen on the peritoneum and therefore floseal was applied. some left sigmoid colon adhesions were taken down sharply with the ligasure. Pressure was taken down and the areas visualized and noted of excellent hemostasis. All ports were removed under direct visualization without complication and the abdomen was desufflated of air. The instruments removed from the abdomen and the vagina vaginal sweep was negative. Port sites on the abdomen were closed with 4-0 Monocryl interrupted sutures and Steri's and windows were applied. She was awoken and taken recovery in stable condition. Grafts/Implants Used: none - Complications none Multi Select Codes - Urinary/Genital Urinary/Genital CPT Codes: 32102 LAVH+BS/O <250gr Uterus
[2020-07-16] MEDS: Ondansetron 4 MG/2 ML Vial IV (12:00)
[2020-07-16] MEDS: Bupivacaine 0.25% 30 ML Vial (12:04)
[2020-07-16] MEDS: Vasopressin 20 UNITS/ML Vial (12:04)
[2020-07-16 12:40] LABS: Bedside Glucose 117 mg/dL (70-110)
[2020-07-16] MEDS: Ketorolac 30 MG/ML Syringe IV (13:21)
[2020-07-16] MEDS: Lactated Ringers 1,000 ML 70 ML IV (13:24)
[2020-07-16 16:00] LABS: Hematocrit 39.9 % (37-47); Hemoglobin 12.1 g/dL (12.0-15.0); Mean Corp Hgb Conc 30.3 g/dL (32-36); Mean Corpuscular Hgb 25.2 pg (27.0-32.0); Mean Platelet Vol. 10.2 fl (6.2-12.0); Platelet Count 280 K/mm3 (150-450); RBC Distribution Width CV 17.9 % (11.6-14.6); RBC Distribution Width SD 54.7 fl (35.1-43.9); Red Blood Count 4.81 M/mm3 (4.2-5.4); White Blood Count 13.3 K/mm3 (4.4-11.0)
--- NOTE | 2020-07-16 16:03 | DCINST_ITS ---
Allergies/Adverse Reactions: Allergies No Known Allergies Allergy (Verified 07/16/20 09:10) Medications to take at Discharge Metoprolol Tartrate [Lopressor (beta tayla)] 25 mg PO DAILY 11/02/15 Cholecalciferol (Vitamin D3) [D3-2000] 2,000 unit PO DAILY 02/09/20 Sertraline HCl [Zoloft] 50 mg PO DAILY 02/09/20 Albuterol Sulfate [Albuterol Sulfate HFA] 2 puff INHALATION Q4H PRN PRN 05/17/20 Ferrous Sulfate 325 mg PO DAILY 07/09/20 Naproxen [Naprosyn] 250 - 500 mg PO Q8H PRN PRN #30 tab 07/16/20 Oxycodone HCl/Acetaminophen [Percocet 5-325] 1 - 2 tablet PO Q6H PRN PRN 7 Days #15 tablet 07/16/20 The following prescriptions were given: Naproxen [Naprosyn] 250 - 500 mg PO Q8H PRN PRN #30 tab PRN Reason: MILD PAIN Transmission Status: Received by [facility] Oxycodone HCl/Acetaminophen [Percocet 5-325] 1 - 2 tablet PO Q6H PRN PRN 7 Days #15 tablet PRN Reason: Pain Transmission Status: Received by [facility] Primary Care Physician: Salma Wang [Primary Care Provider] - Test Results: Test results from this visit will be discussed in further detail at your follow- up appointment, if applicable.
== END 2020-07-16 17:10 | disposition home or self-care (01) ==
LOC: SDC 08:13 → AC 08:14
PROVIDERS: Anesthesiology; Referring Provider Obstetrics & Gynecology; Visit Provider Obstetrics & Gynecology
PROC: 0UT9FZZ Resection of Uterus, Via Natural or Artificial Opening With Percutaneous Endoscopic Assistance (ICD-10-PCS; CPT 58552; principal; 2020-07-16 09:50)
DX: N72 Inflammatory disease of cervix uteri (principal); N80.0 Endometriosis of uterus; N83.8 Other noninflammatory disorders of ovary, fallopian tube and broad ligament; D64.9 Anemia, unspecified; F41.9 Anxiety disorder, unspecified; F32.9 Major depressive disorder, single episode, unspecified; I10 Essential (primary) hypertension; J45.909 Unspecified asthma, uncomplicated; G47.30 Sleep apnea, unspecified; Z79.51 Long term (current) use of inhaled steroids; Z79.899 Other long term (current) drug therapy; Z20.822 Contact with and (suspected) exposure to COVID-19
CPT/HCPCS: 00840; 58552; 36415; 81025; 82962; 83735; 85025; 85027; 86850; 86900; 86901; 87426; 88307; C9803; J7120; J2405

== ENCOUNTER → 2020-08-01 | Outpatient (CLI) | payer MEDICARE, SELFPAY ==
[2020-08-01 10:42] VITALS: BMI 40.6
== END | disposition home or self-care (01) ==
LOC: LABSPEC 15:55
PROVIDERS: Referring Provider Obstetrics & Gynecology; Visit Provider Obstetrics & Gynecology
DX: R30.0 Dysuria (principal)
CPT/HCPCS: 87077; 87086; 87088; 87186

== ENCOUNTER → 2021-01-15 09:38 | Outpatient (CLI) | payer MEDICARE, SELFPAY ==
--- NOTE | 2021-01-17 14:44 | PFT ---
INTRODUCTION: The patient is a 50-year-old female that presents for pulmonary function studies secondary to a diagnosis of asthma. Respiratory therapy reported good patient effort. Bronchodilators were used during testing. INTERPRETATION: Forced expiration spirometry demonstrates no evidence of a large airways obstructive ventilatory defect. There was a significant response to aerosolized bronchodilators. Spirograms are of good quality and plateau normally. IMPRESSION: Stigmata of small airways disease with significant bronchodilator response.
== END ==
PROVIDERS: Referring Provider Nurse Practitioner Adult Health; Visit Provider Nurse Practitioner Adult Health
DX: J45.20 Mild intermittent asthma, uncomplicated (principal)
CPT/HCPCS: 87070; 87077; 87186; 87205; 94060

== ENCOUNTER 2021-05-14 15:31 | Outpatient (CLI) | payer MEDICARE, SELFPAY ==
[2021-05-14 17:12] LABS: Absolute Lymphocyte Count 2.97 X10^3/uL (0.83-4.51); Absolute Neutrophil Count 6.6 X10^3/uL (2.0-7.7); Basophil# 0.08 X10^3/uL; Basophil% 0.7 % (0-1); Eosinophil# 0.13 X10^3/uL; Eosinophils% 1.2 % (0-5); Hematocrit 42.7 % (37-47); Lymphocyte # 2.97 X10^3/ul (0.83-4.51); Lymphocyte % 27.7 % (19-41); Mean Corp Hgb Conc 32.8 g/dL (32-36); Mean Corpuscular Hgb 28.4 pg (27.0-32.0); Mean Corpuscular Volume 86.6 fL (81-99); Mean Platelet Vol. 11.4 fl (6.2-12.0); Monocyte# 0.87 X10^3/uL; Monocyte% 8.1 % (0-10); NRBC Flagged by Analyzer 0 % (0-5); Neutrophil # 6.64 X10^3/uL (2.7-7.7); Neutrophil % 61.9 % (47-70); Platelet Count 301 K/mm3 (150-450); RBC Distribution Width CV 13.4 % (11.6-14.6); RBC Distribution Width SD 42.6 fl (35.1-43.9); Red Blood Count 4.93 M/mm3 (4.2-5.4); White Blood Count 10.7 K/mm3 (4.4-11.0)
[2021-05-14 17:29] LABS: Vitamin D,25 Hydroxy 24.9 ng/mL
[2021-05-14 17:38] LABS: ALB/GLOB Ratio 0.8 RATIO (0.9-2.4); AST(SGOT) 48 U/L (15-37); Alanine Aminotransfer ALT/SGPT 49 U/L (13-56); Albumin, Serum 3.8 g/dL (3.2-5.0); Alkaline Phosphatase 68 U/L (45-117); Anion Gap 6 (5-15); BUN 8 mg/dL (7-18); BUN/Creat Ratio 11.1 RATIO (10-20); Chloride 104 mmol/L (98-107); Cholesterol 177 mg/dL (200); Creatinine, Serum 0.72 mg/dL (0.55-1.02); EST Glomerular Filtration Rate 91 mL/min (>60); Est Glom Filt Rate - Afr Amer 110 mL/min (>60); Glucose 90 mg/dL (74-106); High Density Lipoprotein 29 mg/dL; Iron 115 ug/dL (50-170); Iron Binding Capacity,Total 363 ug/dL (250-450); Protein, Total 8.8 g/dL (6.4-8.2); Sodium Level 132 mmol/L (136-145); Thyroid Stim Hormone (TSH) 1.58 uIU/mL (0.358-3.74); Triglycerides 278 mg/dL; Very Low Density Lipoprotein 56 mg/dL (5-40)
== END 2021-05-14 23:59 | disposition short-term general hospital (02) ==
PROVIDERS: Visit Provider Nurse Practitioner Adult Health
DX: I10 Essential (primary) hypertension (principal); E55.9 Vitamin D deficiency, unspecified
CPT/HCPCS: 36415; 80053; 80061; 82306; 83540; 83550; 84443; 85025

== ENCOUNTER 2021-06-16 14:42 | Outpatient (CLI) | payer MEDICARE, SELFPAY ==
--- NOTE | 2021-06-16 14:45 | BI_ITS ---
MAMMOGRAPHY - BILATERAL SCREENING REASON FOR EXAM: Female, 51 years old. Routine annual screening examination. PERTINENT HISTORY: Mother with breast cancer. TECHNIQUE: Digital bilateral breast vimal (3D mammographic acquisition) in the CC and MLO projections. 2-D mediolateral oblique (MLO) and craniocaudad (CC) views of both breasts were obtained. CAD: Full Field Digital Mammography with Computer Added Detection was performed. COMPARISON: Comparison is made with prior study dated 06/14/2020 and 12/31/2017. FINDINGS: Breast Composition: There are scattered areas of fibroglandular density. There are no dominant masses or suspicious calcifications. Asymmetrical density seen in the inferior slightly lateral aspect of the right breast. Correlation with ultrasound is recommended. No other significant abnormalities are identified. BI/SCRN MAMM (CAD)W/VIMAL BILAT IMPRESSION: Asymmetrical density is seen in the inferior slightly lateral aspect of the right breast. Correlation with ultrasound is recommended. ASSESSMENT CATEGORY: BIRADS Category 0: Incomplete. Need additional imaging evaluation. A letter regarding these results will be sent to the patient by the facility within 30 days. Approximately 10% of breast cancers are not detected by mammography. A normal mammogram should not delay biopsy of a clinically suspicious abnormality. [id number] Electronically Signed: Jhon Gonzalez MD at 15:48 EST ,
== END 2021-06-16 23:59 | disposition home or self-care (01) ==
LOC: OPBI 14:42
PROVIDERS: Visit Provider Nurse Practitioner Adult Health
DX: Z12.31 Encounter for screening mammogram for malignant neoplasm of breast (principal); Z80.3 Family history of malignant neoplasm of breast
CPT/HCPCS: 77063; 77067

== ENCOUNTER 2021-06-17 11:01 | Outpatient (CLI) | payer MEDICARE, SELFPAY ==
[2021-06-17 11:46] LABS: ALB/GLOB Ratio 0.8 RATIO (0.9-2.4); AST(SGOT) 24 U/L (15-37); Alanine Aminotransfer ALT/SGPT 38 U/L (13-56); Albumin, Serum 3.4 g/dL (3.2-5.0); Alkaline Phosphatase 57 U/L (45-117); Anion Gap 7 (5-15); BUN 6 mg/dL (7-18); BUN/Creat Ratio 7.8 RATIO (10-20); Calcium,Total 8.7 mg/dL (8.5-10.1); Chloride 107 mmol/L (98-107); Creatinine, Serum 0.77 mg/dL (0.55-1.02); EST Glomerular Filtration Rate 84 mL/min (>60); Est Glom Filt Rate - Afr Amer 102 mL/min (>60); Globulin 4.4 g/dL (2.2-4.2); Glucose 144 mg/dL (74-106); Potassium 3.7 mmol/L (3.5-5.1); Protein, Total 7.8 g/dL (6.4-8.2); Sodium Level 137 mmol/L (136-145)
== END 2021-06-17 23:59 | disposition home or self-care (01) ==
LOC: LAB 11:04
PROVIDERS: Referring Provider Nurse Practitioner Adult Health; Visit Provider Nurse Practitioner Adult Health
DX: I10 Essential (primary) hypertension (principal)
CPT/HCPCS: 36415; 80053

== ENCOUNTER 2021-06-18 13:12 | Outpatient (CLI) | payer MEDICARE, SELFPAY ==
--- NOTE | 2021-06-18 13:15 | US_ITS ---
STUDY: ULTRASOUND BREAST - RIGHT REASON FOR EXAM: Female, 51 years old. Abnormal screening mammogram. TECHNIQUE: Axial and longitudinal images of the RIGHT breast were performed with a high resolution ultrasound transducer. # OF IMAGES: 34 COMPARISON: Comparison is made with prior mammogram dated 06/16/2021. FINDINGS: RIGHT Breast: The inferior lateral aspect of the right breast was examined by ultrasound. No sonographic abnormality is seen. Routine annual mammographic follow-up is recommended. US/Breast Limited Unilateral IMPRESSION: No sonographic abnormality is seen. Routine annual mammographic follow-up is recommended. ASSESSMENT CATEGORY: BIRADS Category 2: Benign. A letter regarding these results will be sent to the patient by the facility within 30 days. Electronically Signed: Jhon Gonzalez MD at 14:21 EST ,
== END 2021-06-18 23:59 | disposition home or self-care (01) ==
LOC: OPUS 13:13
PROVIDERS: Visit Provider Nurse Practitioner Adult Health
DX: R92.8 Other abnormal and inconclusive findings on diagnostic imaging of breast (principal); Z12.31 Encounter for screening mammogram for malignant neoplasm of breast
CPT/HCPCS: 76642

== ENCOUNTER 2021-08-05 13:09 | Day surgery (SDC) | payer MEDICARE, SELFPAY ==
[2021-08-05] VITALS (7 sets, daily range): BP systolic 95–127; BP diastolic 60–78; PULSE 72–82; RESP 15–165; TEMP 36.2–37.3; O2SAT 94–99; BMI 41.4
--- NOTE | 2021-08-05 | COLBX_PTH ---
PATIENT: ROBIN SELF LOC: [place] U#:[id number] AGE/SX: 51/F ROOM: RE08/05/[address]: Dr. Talib Sharif DO : 1970 BED: DIS: 08/05/2021 SPEC #: [id number] RECD: 08/05/21 15:27 STATUS: EMIL CLAUDIO #: [id number] ANA M: 08/05/21 00:[address]: Talib Sharif DEPT: SURGICAL PATHOLOGY RECD BY: Benja White ENTERED: 08/06/21 09:32 SP TYPE: COLON BX OTHR DR: Salma [facility] Tissues: A - Cecum, NOS B - SPLENIC FLEXURE C - Sigmoid colon biopsy Procedures: Surgery Specimen Level IV HEADER OPERATION: Colonoscopy with biopsies ? open access (MAC) PRE-OP DIAGNOSIS: Screening TISSUE SUBMITTED: A ? Cecum polyp, B ? Splenic flexure biopsy, C ? Sigmoid colon biopsy MICROSCOPIC DIAGNOSIS A. Cecum polyp, biopsy: Fragments of tubular adenoma. B. Splenic flexure, biopsy: Fragments of hyperplastic polyp. C. Sigmoid colon, biopsy: Tubular adenoma. DESTINEY:yesica 08/07/2021 MICROSCOPIC DESCRIPTION Slides are reviewed. GROSS DESCRIPTION A - Received in fixative is one container labeled with the patient's name and designated cecum polyp. The specimen consists of multiple irregular fragments of light abrams soft tissue that in aggregate measure 1.5 x 0.3 x 0.1 cm. The specimen is totally submitted in one cassette. B - Received in fixative is one container labeled with the patient's name and designated hepatic flexure biopsy. The specimen consists of multiple irregular fragments of light abrams soft tissue that in aggregate measure 1.5 x 0.3 x 0.1 cm. The specimen is totally submitted in one cassette. C - Received in fixative is one container labeled with the patient's name and designated sigmoid colon biopsy. The specimen consists of one irregular fragment of light abrams soft tissue that measures 0.3 x 0.3 x 0.1 cm. The specimen is totally submitted in one cassette. / DESTINEY:yesica 08/06/2021 TC:1 CPT: 40164 x3
[2021-08-05] MEDS: Lactated Ringers 1,000 ML 15 ML IV (13:48)
--- NOTE | 2021-08-05 14:37 | HP.PCM_ITS ---
History and Physical Date of Admission: 08/05/21 51-year-old arrives here for screening colonoscopy. She has a past medical history of hypertension ,mild depression, asthma and gastroesophageal reflux disease. She is not have any abdominal pain. She is not having any bleeding per rectum. She denied any diarrhea. She does not have any chest pain or shortness of breath. All other 16 review of systems negative except with certain pause mentioned HPI. Medical History History of hysteroscopy Hypertension (Chronic) Depression (Chronic) Asthma (Chronic) GERD (gastroesophageal reflux disease) (Chronic) Surgical History H/O dilation and curettage Cholecystectomy planned (Resolved) H/O tubal ligation (Resolved) Family History Grandmother CHF (congestive heart failure) Mother Cancer Thyroid disorder Father Cancer Social History Smoking Status: Never smoker alcohol intake: never substance use type: does not use caffeine: Yes what type of physical activity do you participate in: walking seatbelt use: always do you feel safe at home: Yes additional social history: single- disability 128/78, pulse is 82, respiratory rate is 16, temperature is 99.1, oxygen saturation 99.1 HEENT-normocephalic atraumatic Cardiovascular-positive S1-S2 no murmurs rubs or gallops Respiratory-clear to auscultation bilaterally Abdomen-soft nontender distended all 4 quadrant hepatomegaly masses Extremities no clubbing cyanosis or edema Assessment and plan very pleasant 51-year-old comes in for screening colonoscopy . She was explained alternatives, risk, benefits including not withstanding bleeding, infection, sepsis, perforation, need for urgent and . She will have an ASA 1.
--- NOTE | 2021-08-05 15:23 | OP.CCLET_ITS ---
01/08/2022 [facility] Re : Colonoscopy procedure for [facility] This procedure was performed on Thursday, August 05, 2021. My impressions and recommendations are as follows: Impressions : - Diverticulosis in the recto-sigmoid colon and in the sigmoid colon. - One 5 mm polyp in the sigmoid colon in the descending colon in the ascending colon, removed with a cold snare. Resected and retrieved. Recommendations : - Repeat colonoscopy in 3 years for surveillance. - Continue present medications. My findings are described in the full procedure note, which is enclosed. If I can be of further assistance, please feel free to contact me at . Sincerely, Talib Sharif, 08/05/2021 3:22:47 PM This report has been signed electronically.
--- NOTE | 2021-08-05 15:23 | OP.COLON_ITS ---
Patient Name: Isela Coleman Procedure Date: 08/05/2021 2:42 PM Date of : 1970 Age: 51 Procedure: Colonoscopy Indications: Screening for colorectal malignant neoplasm Providers: Talib Sharif DO Medicines: See the Anesthesia note for documentation of the administered medications Patient Profile: This is a 51 year old female. Refer to note in patient chart for documentation of history and physical. Last Colonoscopy: none. The patient's first colonoscopy is today. Complications: No immediate complications. Procedure: Pre-Anesthesia Assessment: - Prior to the procedure, a History and Physical was performed, and patient medications and allergies were reviewed. The patient is competent. The risks and benefits of the procedure and the sedation options and risks were discussed with the patient. All questions were answered and informed consent was obtained. Patient identification and proposed procedure were verified in the pre-procedure area. Mental Status Examination: alert and oriented. Airway Examination: normal oropharyngeal airway and neck mobility. Respiratory Examination: clear to auscultation. CV Examination: normal. Prophylactic Antibiotics: The patient does not require prophylactic antibiotics. Prior Anticoagulants: The patient has taken no previous anticoagulant or antiplatelet agents. After reviewing the risks and benefits, the patient was deemed in satisfactory condition to undergo the procedure. The anesthesia plan was to use moderate sedation / analgesia (conscious sedation). Immediately prior to administration of medications, the patient was re-assessed for adequacy to receive sedatives. The heart rate, respiratory rate, oxygen saturations, blood pressure, adequacy of pulmonary ventilation, and response to care were monitored throughout the procedure. The physical status of the patient was re-assessed after the procedure. After I obtained informed consent, the scope was passed under direct vision. Throughout the procedure, the patient's blood pressure, pulse, and oxygen saturations were monitored continuously. The pediatric colonoscope was introduced through the anus and advanced to the cecum, identified by the appendiceal orifice, ileocecal valve and palpation. The entire colon was examined. Moderate Sedation: Moderate (conscious) sedation was administered by the endoscopy nurse and supervised by the endoscopist. The patient's oxygen saturation, heart rate, blood pressure and response to care were monitored. Total physician intraservice time was 15 minutes. Scope In: 2:56:09 PM Scope Withdrawal Time 0 hours 15 minutes 0 seconds Scope Out: 3:14:47 PM Total Procedure Duration Time 0 hours 18 minutes 38 seconds Findings: The perianal and digital rectal examinations were normal. A few small and large-mouthed diverticula were found in the recto-sigmoid colon and sigmoid colon. A 5 mm polyp was found in the sigmoid colon descending colon ascending colon. The polyp was sessile. The polyp was removed with a cold snare. Resection and retrieval were complete. Verification of patient identification for the specimen was done. Estimated blood loss was minimal. Impression: - Diverticulosis in the recto-sigmoid colon and in the sigmoid colon. - One 5 mm polyp in the sigmoid colon in the descending colon in the ascending colon, removed with a cold snare. Resected and retrieved. Recommendation: - Repeat colonoscopy in 3 years for surveillance. - Continue present medications. Procedure Code(s): --- Professional --- 44266, Colonoscopy, flexible; with removal of tumor(s), polyp(s), or other lesion(s) by snare technique G0500, Moderate sedation services provided by the same physician or other qualified health patient care provider performing a gastrointestinal endoscopic service that sedation supports, requiring the presence of an independent trained observer to assist in the monitoring of the patient's level of consciousness and physiological status; initial 15 minutes of intra-service time; patient age 5 years or older (additional time may be reported with 90488, as appropriate) CPT copyright 2017 [employer] [place] [employer]. All rights reserved. The codes documented in this report are preliminary and upon inpatient coder review may be revised to meet current compliance requirements. Talib Sharif DO 08/05/2021 3:22:47 PM This report has been signed electronically. Number of Addenda: 1 Note Initiated On: 08/05/2021 2:42 PM Addendum Number: 1 Addendum Date: 01/08/2022 6:23:55 AM MAC was used as sedation for this procedure. Talib Sharif DO 01/08/2022 6:23:58 AM This report has been signed electronically.
== END 2021-08-05 16:00 | disposition home or self-care (01) ==
LOC: EN 13:12 → AC 13:14
PROVIDERS: Visit Provider Internal Medicine Gastroenterology
PROC: 0DJD8ZZ Inspection of Lower Intestinal Tract, Via Natural or Artificial Opening Endoscopic (ICD-10-PCS; CPT 45378; principal; 2021-08-05 14:10)
DX: Z12.11 Encounter for screening for malignant neoplasm of colon (principal); D12.0 Benign neoplasm of cecum; D12.5 Benign neoplasm of sigmoid colon; K57.30 Diverticulosis of large intestine without perforation or abscess without bleeding; I10 Essential (primary) hypertension; F32.A Depression, unspecified; J45.909 Unspecified asthma, uncomplicated; G47.33 Obstructive sleep apnea (adult) (pediatric); Z79.899 Other long term (current) drug therapy
CPT/HCPCS: 45385; 87426; 88305; J7120; J2405

== ENCOUNTER → 2021-11-10 | Outpatient (CLI) | payer MEDICARE, SELFPAY ==
--- NOTE | 2021-11-10 13:19 | RAD_ITS ---
EXAM: XR LUMBOSACRAL SPINE, 4 OR 5 VIEWS CLINICAL INDICATION: RADICULOPATHY, LUMBAR REGION TECHNIQUE: Frontal, lateral and bilateral oblique views of the lumbar spine. This report was created using [employer] report PT PAL technology. COMPARISON: None. FINDINGS: VERTEBRAE: Unremarkable. Preserved vertebral body height. No fracture. No spondylolisthesis. Preservation of the normal lumbar lordosis. No significant facet arthropathy. DISC SPACES: No acute findings. Disc spaces are maintained. GASTROINTESTINAL TRACT: Unremarkable as visualized. Included bowel gas pattern is non-obstructive. RAD/L/S Spine Min 4 Views IMPRESSION: No evidence of lumbar spinal fracture or spondylolisthesis. Electronically Signed: Jamie Harper MD at 4:11 EDT ,
[2021-11-10 14:54] LABS: Cholesterol 210 mg/dL (200); High Density Lipoprotein 31 mg/dL; Triglycerides 230 mg/dL; Very Low Density Lipoprotein 46 mg/dL (5-40)
== END | disposition home or self-care (01) ==
PROVIDERS: Referring Provider Podiatrist; Visit Provider Podiatrist
DX: M54.16 Radiculopathy, lumbar region (principal); E78.5 Hyperlipidemia, unspecified
CPT/HCPCS: 36415; 72110; 80061

== ENCOUNTER → 2022-01-14 | Outpatient (CLI) | payer MEDICARE, SELFPAY ==
--- NOTE | 2022-01-14 14:40 | NEURO ---
NCS and/or EMG Patient Report Ordering Doctor: Lai Quiñones DATE OF SERVICE: 01/14/22 Isela presents for electrodiagnostic testing of the lower limbs. She reports back pain with occasional tingling in the feet Electrodiagnostic findings: Peroneal motor nerve demonstrates normal distal latency, amplitude and conduction velocity bilaterally. Normal tibial motor response bilaterally. Normal tibial and peroneal F waves. Sensory responses are within normal limits. H reflex is normal. On needle EMG, all muscles tested in the lower limbs showed no evidence of denervation with normal motor unit action potentials. Electrodiagnostic impression: This is a normal electrodiagnostic study in the lower limbs. There is no electrodiagnostic evidence for lumbosacral radiculopathy or peripheral polyneuropathy
== END | disposition home or self-care (01) ==
LOC: PSN 11:59
PROVIDERS: Referring Provider Podiatrist; Visit Provider Podiatrist
DX: M54.16 Radiculopathy, lumbar region (principal)
CPT/HCPCS: 95886; 95912

== ENCOUNTER → 2022-02-17 | Outpatient (CLI) | payer MEDICARE, SELFPAY ==
[2022-02-17 14:15] LABS: AST(SGOT) 45 U/L (15-37); Alanine Aminotransfer ALT/SGPT 50 U/L (13-56); Cholesterol 160 mg/dL (200); High Density Lipoprotein 32 mg/dL; Triglycerides 149 mg/dL; Very Low Density Lipoprotein 30 mg/dL (5-40)
== END | disposition home or self-care (01) ==
LOC: LAB 13:06
PROVIDERS: Referring Provider Nurse Practitioner Adult Health; Visit Provider Nurse Practitioner Adult Health
DX: E78.5 Hyperlipidemia, unspecified (principal)
CPT/HCPCS: 36415; 80061; 84450; 84460

== ENCOUNTER 2022-03-10 16:57 | Outpatient (CLI) | payer MEDICARE, SELFPAY ==
[2022-03-14 12:08] LABS: Chlamydia By Nucleic Acid AMP Negative (Negative)
[2022-03-17 11:48] LABS: Gonococcus By Nucleic Acid AMP Negative (Negative)
== END 2022-03-10 23:59 | disposition home or self-care (01) ==
LOC: LABSPEC 16:58
PROVIDERS: Visit Provider Nurse Practitioner Women's Health
DX: Z20.2 Contact with and (suspected) exposure to infections with a predominantly sexual mode of transmission (principal); Z72.51 High risk heterosexual behavior
CPT/HCPCS: 87491; 87591

== ENCOUNTER 2022-05-14 11:10 | Emergency (ER) | payer MEDICARE, SELFPAY ==
[2022-05-14 11:11] VITALS: BP 129/78; PULSE 81; RESP 14; TEMP 36.1; O2SAT 97; BMI 38.9
--- NOTE | 2022-05-14 11:20 | RAD_ITS ---
STUDY: X-RAY - RIGHT WRIST REASON FOR EXAM: Female, 52 years old. Pain. No known injury. TECHNIQUE: 3 view(s) of the wrist were obtained. COMPARISON: None. FINDINGS: Normal visualized distal radius and ulna. Normal radiocarpal articulation. Normal distal radioulnar articulation. Normal carpal bones. Normal carpal articulations. Normal carpometacarpal articulation of the thumb. Normal second through fifth carpometacarpal articulations. Normal visualized metacarpal bones. The soft tissue structures are unremarkable. RAD/Wrist min 3 Views IMPRESSION: Normal x-ray examination of the wrist. Electronically Signed: Jhon Gonzalez MD at 11:34 EST ,
[2022-05-14] MEDS: Ibuprofen 600 MG Tablet PO (11:42)
--- NOTE | 2022-05-14 12:11 | EDS_ITS ---
HPI History of Present Illness Chief Complaint: Upper Extremity Injury Informant: patient Narrative Narrative: Zcesk-[id number]-[id number] female presents pain in her right wrist for the past 2 weeks. Denies trauma. 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 Reports there is numbness along the ulnar aspect. Denies weakness. Denies history of similar. Prior similar symptoms: No PFSH PFSH Medical History Anemia Asthma Depression GERD (gastroesophageal reflux disease) Hypertension Injury of head and neck Restless legs Severe anemia Shortness of breath on exertion Wears glasses Home Medications metoprolol tartrate 25 mg tablet 25 mg PO DAILY BP 11/02/15 [History Last Taken 05/16/20] cholecalciferol (vitamin D3) 50 mcg (2,000 unit) capsule 2,000 unit PO DAILY 02/09/20 [History Last Taken 2 Days Ago ~05/15/20] sertraline 50 mg tablet (Zoloft) 50 mg PO DAILY DEPRESSION 02/09/20 [History Last Taken 05/16/20] albuterol sulfate 90 mcg/actuation aerosol inhaler 2 puff inhalation Q4H PRN PRN Sob &/Or Wheezing 05/17/20 [History Last Taken 05/16/20] ferrous sulfate 325 mg (65 mg iron) tablet 325 mg PO DAILY 07/09/20 [History Last Taken Unknown] ibuprofen 600 mg tablet 600 mg PO Q6H PRN PRN pain #20 TABLETS 05/14/22 [Rx Last Taken Unknown] Allergy/AdvReac Type Severity Reaction Status Date / Time No Known Allergies Allergy Verified 05/14/22 11:12 Family History Grandmother CHF (congestive heart failure) Mother Cancer Thyroid disorder Father Cancer Surgical History Cholecystectomy planned H/O dilation and curettage H/O tubal ligation History of hysteroscopy (~05/18/20) S/P laparoscopic assisted vaginal hysterectomy (LAVH) (~07/16/20) Social History Smoking Status: Never smoker alcohol intake: never substance use type: does not use caffeine: Yes what type of physical activity do you participate in: walking seatbelt use: always do you feel safe at home: Yes additional social history: single- disability ROS ROS ED Constitutional Constitutional ED: Denies chills, fever(s) or sweats Eyes Eyes: Denies change in vision ENT ENT ED: Denies dysphagia or sore throat Cardiovascular Cardiovascular: Denies chest pain, leg edema, palpitations or racing heartbeat Respiratory/Chest Respiratory/Chest: Denies cough, dyspnea or dyspnea on exertion Gastrointestinal Gastrointestinal: Denies abdominal pain, diarrhea, nausea or vomiting Genitourinary Genitourinary ED: Denies dysuria, hematuria or urinary frequency Musculoskeletal Musculoskeletal: Reports extremity pain; Denies back pain or neck pain Integumentary Denies rash or wounds Neurologic Neurologic: Denies headache(s), paresthesias or weakness EXAM Physical Exam Const Vital Signs: 05/14/22 11:11 Temperature 97.0 F L Temperature Source Temporal Pulse Rate 81 Respiratory Rate 14 Blood Pressure 129/78 H Blood Pressure Mean 95 Pulse Ox 97 Oxygen Delivery Method Room Air Positive well nourished and well developed General Appearance ED: well developed and NAD HEENT Reports moist mucous membranes normocephalic and atraumatic Eyes PERRL, EOMs intact bilaterally and conjunctivae normal General Eye ED: Yes normal appearance of both eyes Neck no lymphadenopathy and supple General: Negative for tenderness Chest Wall Chest: Negative for tenderness Resp normal respiratory effort and normal air movement Effort and Inspection: symmetric chest movement; Negative for respiratory distress Cardio regular rate, regular rhythm and no murmurs Peripheral Pulses: pulses 2+ throughout GI normal to inspection, nondistended, normoactive bowel sounds and non-tender Palpation: Negative for guarding or rebound tenderness present Back/Spine no CVA tenderness and no thoracic nor lumbar tenderness Extremity Extremity Narrative: Right upper extremity: Positive Tinel's at the cubital region of the elbow. Negative Mavis's. Pain with movement of the wrist dorsally. No deformities. Skin intact. No redness swelling or warmth. Neuro vas intact distally. General Extremety ED: Negative for edema or tenderness General Extremity: Negative for edema Neuro oriented x3 and no sensory deficits noted Sensorium / Orientation: awake and alert Skin no rashes or lesions noted and no wounds MDM MDM MDM Narrative Medical decision making narrative: Differential wrist sprain/tendinitis, less likely fracture with no injuries. Positive Tinel's at the cubital region concerning for tunnel syndrome. There is no weakness. Three-view x-ray right wrist interpreted myself read by radiology shows no acute process. She is provided Velcro wrist splint for comfort she started on Motrin with her prescription. She is given follow-up with orthopedics for outpatient evaluation due to cubital tunnel syndrome symptoms. All questions were answered. Radiography Diagnostic Testing: Clinical Impression(s) from Imaging Studies Wrist X-Ray 05/14/22 11:20 IMPRESSION: Normal x-ray examination of the wrist. Electronically Signed: Jhon Gonzalez MD at 11:34 EST , Discharge Plan Triage Chief Complaint: Upper Extremity Injury ED Provider: Jeff Nava Dx/Rx/DC Orders Clinical Impression: Right wrist tendinitis, Cubital tunnel syndrome on right Instructions: What is Cubital Tunnel Syndrome?, ED Tendonitis Prescriptions: New ibuprofen 600 mg tablet 600 mg PO Q6H PRN PRN (Reason: pain) Qty: 20 0RF No Action metoprolol tartrate 25 MG tablet 25 mg PO DAILY sertraline [Zoloft] 50 MG tablet 50 mg PO DAILY cholecalciferol (vitamin D3) 50 MCG capsule 2,000 unit PO DAILY albuterol sulfate 1 PUFF inhaler 2 puff INHALATION Q4H PRN PRN (Reason: Sob &/Or Wheezing) Label Comments: INHALE 2 PUFFS BY MOUTH EVERY 4 HOURS NEEDED ferrous sulfate 325 MG tablet 325 mg PO DAILY [facility] Referrals: Dom Moore MD [Med Staff - Active Staff] - 1 Week if not improving [facility] [Primary [facility]] - Activity Restrictions/Additional Instructions: Wrist x-ray negative. Use splint for comfort. Monitor symptoms of paresthesias. Follow-up with Dr. Moore for further treatment options. Disposition Disposition: Home, Self Care Discharge Date/Time: 05/14/22 12:15
== END 2022-05-14 12:15 | disposition home or self-care (01) ==
PROVIDERS: Emergency Provider Emergency Medicine; Visit Provider Emergency Medicine
DX: G56.21 Lesion of ulnar nerve, right upper limb (principal); I10 Essential (primary) hypertension; J45.909 Unspecified asthma, uncomplicated; M77.8 Other enthesopathies, not elsewhere classified
CPT/HCPCS: 73110; 99283

== ENCOUNTER → 2022-06-22 | Outpatient (CLI) | payer MEDICARE, MEDICAID, SELFPAY ==
--- NOTE | 2022-06-22 13:29 | BI_ITS ---
MAMMOGRAPHY - BILATERAL SCREENING 3-D TOMOSYNTHESIS REASON FOR EXAM: Female, 52 years old. Routine screening PERTINENT HISTORY: Mother with breast cancer.. TECHNIQUE: 2-D mammograms and 3-D Tomosynthesis of the breast (s) were performed. CAD was performed. COMPARISON: 06/16/2021 FINDINGS: The breast composition is almost entirely fat. Scattered benign calcifications are seen. No dense spiculated masses or suspicious microcalcifications are identified. No architectural distortion is identified. There is no skin thickening or retraction. There has been no significant change since the prior study. BI/SCRN MAMM (CAD)W/VIMAL BILAT IMPRESSION: No mammographic signs of malignancy. Routine yearly mammograms recommended. ASSESSMENT CATEGORY: BIRADS Category 1: Negative. A letter regarding these results will be sent to the patient by the facility within 30 days. FOLLOW UP RECOMMENDATION: Yearly follow up mammogram recommended. (A) Approximately 10% of breast cancers are not detected by mammography. A normal mammogram should not delay biopsy of a clinically suspicious abnormality. Electronically Signed: Noah Ashley MD at 14:34 EDT ,
[2022-06-22 13:33] LABS: Hematocrit 44.2 % (37-47); Hemoglobin 14.7 g/dL (12.0-15.0); Mean Corp Hgb Conc 33.3 g/dL (32-36); Mean Corpuscular Volume 90.2 fL (81-99); Mean Platelet Vol. 10.6 fl (6.2-12.0); Platelet Count 269 K/mm3 (150-450); RBC Distribution Width CV 12.7 % (11.6-14.6)
[2022-06-22 14:08] LABS: Vitamin D,25 Hydroxy 30.6 ng/mL
[2022-06-22 14:10] LABS: ALB/GLOB Ratio 0.9 RATIO (0.9-2.4); AST(SGOT) 35 U/L (15-37); Alanine Aminotransfer ALT/SGPT 42 U/L (13-56); Alkaline Phosphatase 69 U/L (45-117); Anion Gap 5 (5-15); BUN 16 mg/dL (7-18); BUN/Creat Ratio 17.7 RATIO (10-20); Calcium,Total 9.3 mg/dL (8.5-10.1); Chloride 105 mmol/L (98-107); EST Glomerular Filtration Rate 70 mL/min (>60); Est Glom Filt Rate - Afr Amer 84 mL/min (>60); Globulin 4.4 g/dL (2.2-4.2); Glucose 103 mg/dL (74-106); Iron 83 ug/dL (50-170); Iron Binding Capacity,Total 311 ug/dL (250-450); PERCENT IRON SATURATION 26.7 % (15.0-55.0); Potassium 4.2 mmol/L (3.5-5.1); Protein, Total 8.4 g/dL (6.4-8.2); Sodium Level 137 mmol/L (136-145)
== END | disposition home or self-care (01) ==
PROVIDERS: Referring Provider Nurse Practitioner Family; Visit Provider Nurse Practitioner Family
DX: Z12.31 Encounter for screening mammogram for malignant neoplasm of breast (principal); I10 Essential (primary) hypertension; E55.9 Vitamin D deficiency, unspecified; D50.9 Iron deficiency anemia, unspecified
CPT/HCPCS: 36415; 77063; 77067; 80053; 82306; 83540; 83550; 85027

== ENCOUNTER 2022-12-29 17:20 | Emergency (ER) | payer MEDICARE, MEDICAID, SELFPAY ==
[2022-12-29 17:23] VITALS: BP 128/103; PULSE 111; RESP 18; TEMP 36.7; O2SAT 98; BMI 41.2
== END 2022-12-29 19:55 | disposition left against medical advice (07) ==
LOC: ED 20:27
DX: Z53.21 Procedure and treatment not carried out due to patient leaving prior to being seen by health care provider (principal)

== ENCOUNTER → 2023-04-22 | Outpatient (CLI) | payer MEDICARE, SELFPAY ==
--- NOTE | 2023-04-22 12:33 | MRI_ITS ---
STUDY: MRI LEFT ANKLE WITHOUT CONTRAST REASON FOR EXAM: Female, 52 years old. Left plantar fascial fibromatosis. Bone spur left heel. Symptoms for 4 months. TECHNIQUE: Standardized fat and water weighted pulse sequences were obtained in all 3 orthogonal planes. COMPARISON: Left ankle radiographs dated 12/18/2018. FINDINGS: Normal subcutis adipose space. There is minimal posterior tibialis tenosynovitis. Intact posterior tibialis tendon. Normal flexor digitorum longus tendon. Normal flexor hallucis longus tendon. Normal peroneus longus and brevis tendons. Normal tibialis anterior tendon. Normal extensor hallucis longus tendon. Normal extensor digitorum longus tendons. Normal Achilles tendon and teno-osseous insertion. There is minimal perifascial edema of the origin of the plantar fascia (sagittal STIR series 9 image 12), suggestive of minimal plantar fasciitis. There is no plantar fibromatosis. There is minimal reactive marrow edema at the plantar calcaneal tuberosity with a tiny plantar calcaneal spur (sagittal STIR series 9 image 12). Normal intrinsic muscles of the rearfoot. Normal distal tibiofibular syndesmotic ligamentous complex. Normal lateral ligamentous complex. Normal subtalar ligaments and sinus tarsi. Normal deltoid ligamentous complex. Normal plantar calcaneonavicular (spring) ligament. Normal tibiotalar articulation. Normal talar dome. There is a small posterior subtalar joint effusion. Normal talonavicular articulation. Normal calcaneocuboid articulation. Normal navicular-cuneiform articulations. MRI/Lower Ext Joint Only (Routine) IMPRESSION: Minimal plantar fasciitis, with no plantar fibromatosis. Minimal reactive marrow edema at the plantar calcaneal tuberosity with a tiny plantar calcaneal spur. Minimal posterior tibialis tenosynovitis. Small posterior subtalar joint effusion. Electronically Signed: Dung Dodge MD at 9:32 EST ,
== END | disposition home or self-care (01) ==
LOC: MRI 12:27
PROVIDERS: Referring Provider Podiatrist; Visit Provider Podiatrist
DX: M72.2 Plantar fascial fibromatosis (principal)
CPT/HCPCS: 73721

== ENCOUNTER → 2023-06-01 | Outpatient (CLI) | payer MEDICARE, SELFPAY ==
[2023-06-01 13:37] LABS: Absolute Lymphocyte Count 2.36 X10^3/uL (0.83-4.51); Absolute Neutrophil Count 4.8 X10^3/uL (2.0-7.7); Basophil# 0.05 X10^3/uL; Basophil% 0.6 % (0-1); Eosinophil# 0.12 X10^3/uL; Eosinophils% 1.5 % (0-5); Hematocrit 41.8 % (37-47); Hemoglobin 13.8 g/dL (12.0-15.0); Lymphocyte # 2.36 X10^3/ul (0.83-4.51); Lymphocyte % 30.2 % (19-41); Mean Corpuscular Hgb 29.2 pg (27.0-32.0); Mean Corpuscular Volume 88.4 fL (81-99); Mean Platelet Vol. 11.4 fl (6.2-12.0); Monocyte# 0.49 X10^3/uL; Monocyte% 6.3 % (0-10); NRBC Flagged by Analyzer 0 % (0-5); Neutrophil # 4.76 X10^3/uL (2.7-7.7); Platelet Count 270 K/mm3 (150-450); RBC Distribution Width CV 12.4 % (11.6-14.6); RBC Distribution Width SD 40.3 fl (35.1-43.9); Red Blood Count 4.73 M/mm3 (4.2-5.4); White Blood Count 7.8 K/mm3 (4.4-11.0)
--- OUTSIDE RECORDS SUMMARY | 2023-06-01 13:40 | XMS RPT_ITS | CCD ---
Author Name Unknown Address [address] [place] [address] Organization [facility] Care Team Providers Care Vice President Sales And Marketing Name Role Phone DEEP MEJIA Unavailable Unavailable DEEP MEJIA Unavailable Unavailable Problems Problem Classification Problem Date Documented Da te Episodic/Chronic Genitourinary symptoms and ill-defined conditions (2 sources) Dysuria; Translations: [Dysuria] Onset: 12-07-2016 Episodic Encounters Encounter Date Encounter Type Care Provider Facility Start: 12-07-2016 End: 12-12-2016 Ambulatory DEEP MEJIA Facility:[facility] Payers Date Payer Category Payer Medicare [id number] Summary Purpose Family History No Family History Records Found Advance Directives No Advanced Directives Records Found Additional Source Comments INFORMATION SOURCE (unrecogn ized section and content) FOR RECORDS PERTAINING TO PATIENTS WHO ARE OR HAVE BEEN ENROLLED IN A CHEMICAL DEPENDENCY/SUBSTANCEABUSE PROGRAM, SOME INFORMATION MAY BE OMITTED. This clinical summary was aggregated from multiple sources. Caution should be exercised in using it in the provision of clinical care. This summary normalizes information from multiple sources, and as a consequence, information in this document may materially change the coding, format and clinical context of patient data. In addition, data may be omitted in some cases. CLINICAL DECISIONS SHOULD BE BASED ON THE PRIMARY CLINICAL RECORDS. [employer] provides no warranty or guarantee of the accuracy or completeness of information in this document.
[2023-06-01 13:55] LABS: Hemoglobin A1c 5.5 % (3.8-5.6)
[2023-06-01 14:05] LABS: ALB/GLOB Ratio 0.9 RATIO (0.9-2.4); AST(SGOT) 26 U/L (15-37); Alanine Aminotransfer ALT/SGPT 37 U/L (13-56); Albumin, Serum 3.6 g/dL (3.2-5.0); Alkaline Phosphatase 60 U/L (45-117); Anion Gap 8 (5-15); BUN 10 mg/dL (7-18); BUN/Creat Ratio 12.5 RATIO (10-20); Calcium,Total 9.1 mg/dL (8.5-10.1); Chloride 109 mmol/L (98-107); Cholesterol 164 mg/dL (200); EST Glomerular Filtration Rate 80 mL/min (>60); Est Glom Filt Rate - Afr Amer 97 mL/min (>60); Globulin 4.2 g/dL (2.2-4.2); Glucose 115 mg/dL (74-106); High Density Lipoprotein 30 mg/dL; Potassium 3.7 mmol/L (3.5-5.1); Protein, Total 7.8 g/dL (6.4-8.2); Sodium Level 139 mmol/L (136-145); Thyroid Stim Hormone (TSH) 2.12 uIU/mL (0.358-3.74); Triglycerides 248 mg/dL; Very Low Density Lipoprotein 50 mg/dL (5-40)
== END | disposition home or self-care (01) ==
LOC: LAB 12:21
PROVIDERS: Referring Provider Nurse Practitioner Family; Visit Provider Nurse Practitioner Family
DX: I10 Essential (primary) hypertension (principal); E78.5 Hyperlipidemia, unspecified; E66.9 Obesity, unspecified
CPT/HCPCS: 36415; 80053; 80061; 83036; 84443; 85025

== ENCOUNTER 2023-06-18 05:52 | Day surgery (SDC) | payer MEDICARE, SELFPAY ==
[2023-06-18] VITALS (7 sets, daily range): BP systolic 97–123; BP diastolic 67–89; PULSE 77–89; RESP 16–20; TEMP 36.4–36.6; O2SAT 92–98; BMI 41.8
--- OUTSIDE RECORDS SUMMARY | 2023-06-18 05:54 | XMS RPT_ITS | CCD ---
Author Name Unknown Address [address] [place] [address] Organization [facility] Care Team Providers Care Navy Material Inspector Name Role Phone DEEP MEJIA Unavailable Unavailable DEEP MEJIA Unavailable Unavailable Problems Problem Classification Problem Date Documented Da te Episodic/Chronic Genitourinary symptoms and ill-defined conditions (2 sources) Dysuria; Translations: [Dysuria] Onset: 12-07-2016 Episodic Encounters Encounter Date Encounter Type Care Provider Facility Start: 12-07-2016 End: 12-12-2016 Ambulatory DEEP MEJIA Facility:[facility] Payers Date Payer Category Payer Medicare [id number] Summary Purpose Family History No Family History [...] BE BASED ON THE PRIMARY CLINICAL RECORDS. [employer] provides no warranty or guarantee of the accuracy or completeness of information in this document.
[2023-06-18] MEDS: Lactated Ringers 1,000 ML 15 ML IV (06:41)
[2023-06-18] MEDS: Cefazolin 2 GM in 0.9% Normal Saline (100mL Bag) 100 ML IV (07:30)
[2023-06-18] MEDS: Bupivacaine Mpf 0.5% 30 ML VIAL (07:45)
[2023-06-18] MEDS: Bacitracin 500 UNITS/GM PACKET (08:17)
--- NOTE | 2023-06-18 08:34 | PCM.OPRPT ---
Problems Associated Problem List Diagnoses (1) Other acute postprocedural pain: (2) Plantar fascial fibromatosis: Report of Operation Date of Procedure: 06/18/23 Pre-Operative Diagnosis: 1) Left Foot Plantar Fasciitis Post-Operative Diagnosis: Same Surgery/Procedure Performed:: 1) Left Foot Endoscopic Plantar fasciotomy 2) Left Lower Extremity Application of Short Leg Splint Description of Surgical Findings:: Patient failed conservative treatment plantar fasciitis. MRI confirmed plantar fasciitis. Decision for endoscopic release 40-minute of family invasive approach for plantar fasciotomy. Surgeon: Lai Quiñones commissioning agent: None (buck beverage) Type of Anesthesia: General Special Medications: 20cc 0.5% marcaine plain Specimen's removed: none Drains: none Estimated Blood Loss (mL): minimal Description of Procedure: Patient brought back to the operating placed comfortably in supine position on the operating room table. All osseous prominences offloaded to prevent any compression neuropraxia's. Patient induced under general anesthesia. Left lower extremity was positioned and hip bump was placed to knock out any external rotation. Well-padded left thigh tourniquet was applied. Preoperatively a right ankle ring block was performed with 10 cc half percent Marcaine plain. Left lower extremity was then scrubbed prepped draped using typical aseptic fashion. Procedure #1: Left foot endoscopic plantar fasciotomy Once cleared by anesthesia additional 10 cc half percent Marcaine plain was injected totaling 20 cc. This was in an ankle block technique. The medial calcaneal tuberosity was palpated and an incision was made just 1 cm distal to this at the point where the plantar skin meets the dorsal skin. Left lower extremity was elevated exsanguinated tourniquet was inflated to 300 mmHg. Using a 15 blade stab incision was made to the marked out incisional site. Hemostats were used for blunt dissection down the level of plantar fascia. Using the [employer] EPF kit the spatula was used to separate the plantar fascia from the subcutaneous fat layer. Next the trocar and cannula were inserted from medial to lateral and a lateral incision was made where the trocar tented the skin laterally with a 15 blade. The cannula was then placed completely through the incisional site from medial to lateral just inferior to the plantar fascial band. The trocar was then removed. Cotton swabs were used to remove any interpositional tissue and a 4 oh scope was inserted from lateral to medial and the plantar fascial band central band could be examined was noted to be thickened and fibrotic. Using a triangle blade the plantar fascial band central band was released from its medial two thirds from a lateral to medial technique with a combination of the triangle and hook blades. Adequate visualization of the intrinsic musculature was noted upon adequate plantar fascial release of the medial two thirds of the central band. Trocar and cannula as well as all instrumentation removed from the incisional sites incisions were flushed with copious amounts of normal sterile saline. Tourniquet was let down. 1 cc via flow amniotic injectable was injected to the wrist plantar fasciotomy site. Incisional sites closed with horizontal mattress using 3-0 nylon. Procedure #2: Application of splint left lower extremity His left foot was cleansed. Incisional sites were dressed with bacitracin Adaptic 4 x 4's Kerlix. A well-padded AO splint with the foot held in a rectus position relative the length and 0 degrees dorsiflexion was applied. Patient was transported to PACU vital signs stable and vascular status intact all digits for further monitoring prior to discharge. Patient tolerated procedure and anesthesia well in apparent satisfactory condition. Patient will maintain nonweightbearing status to the left lower extremity until follow-up. She will keep dressing clean dry and intact until follow-up. No complications, no pathologic specimens, thick thickened plantar fascial band was noted. Adequate release was performed. This was confirmed with endoscopic imaging. Grafts/Implants Used: [employer] viaflow injectable
[2023-06-18] MEDS: oxyCODONE 5 MG Tablet PO (09:35)
== END 2023-06-18 10:17 | disposition home or self-care (01) ==
LOC: SDC 05:52 → AC 05:54
PROVIDERS: Referring Provider Podiatrist; Visit Provider Podiatrist
PROC: (CPT 29893; principal; 2023-06-18 07:15)
DX: M72.2 Plantar fascial fibromatosis (principal); Z68.41 Body mass index [BMI] 40.0-44.9, adult; I10 Essential (primary) hypertension; J45.909 Unspecified asthma, uncomplicated; G47.33 Obstructive sleep apnea (adult) (pediatric); K21.9 Gastro-esophageal reflux disease without esophagitis; E66.9 Obesity, unspecified
CPT/HCPCS: 29893; 01464; J7120; J2405

== ENCOUNTER → 2023-08-24 | Outpatient (CLI) | payer MEDICARE, MEDICAID, SELFPAY ==
--- NOTE | 2023-08-24 12:12 | BI_ITS ---
MAMMOGRAPHY - BILATERAL SCREENING REASON FOR EXAM: Female, 53 years old. Routine annual screening examination. PERTINENT HISTORY: Mother with breast cancer. TECHNIQUE: Digital bilateral breast vimal (3D mammographic acquisition) in the CC and MLO projections. 2-D mediolateral oblique (MLO) and craniocaudad (CC) views of both breasts were obtained. CAD: Full Field Digital Mammography with Computer Added Detection was performed. COMPARISON: Comparison is made with prior study dated June 22, 2022 and June 16, 2021. FINDINGS: Breast Composition: The breasts are almost entirely fatty. There are no dominant masses or suspicious calcifications. No other significant abnormalities are identified. There has been no significant change since the prior study. BI/SCRN MAMM (CAD)W/VIMAL BILAT IMPRESSION: Stable bilateral screening mammogram. Yearly follow-up mammogram recommended. (A) ASSESSMENT CATEGORY: BIRADS Category 1: Negative. A letter regarding these results will be sent to the patient by the facility within 30 days. Approximately 10% of breast cancers are not detected by mammography. A normal mammogram should not delay biopsy of a clinically suspicious abnormality. [id number] Electronically Signed: Jhon Gonzalez MD at 13:54 EDT ,
== END | disposition home or self-care (01) ==
LOC: OPBI 12:11
PROVIDERS: Referring Provider Nurse Practitioner Family; Visit Provider Nurse Practitioner Family
DX: Z12.31 Encounter for screening mammogram for malignant neoplasm of breast (principal)
CPT/HCPCS: 77063; 77067

== ENCOUNTER 2023-08-25 13:30 | Outpatient (RCR) | payer MEDICARE, MEDICAID, SELFPAY ==
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
--- NOTE | 2023-08-25 14:08 | HP.PTDCSUM ---
Discharge Summary D/C summary: It has been my pleasure to treat ROBIN SELF referred by Dr. Lai Quiñones DPM, with the diagnosis of L plantarfasciitis for a total of 12 visit(s). Discharge Date: 08/25/23 Please see the following information for a summary of their discharge status. Subjective Subjective: Feels better except on the outside of heel which remains sore at times intermittently 4/10 for a couple minutes. Sleep is OK. Walking is good and activities. to Doctor in November. HEP: stretching adn pulling on band. Pain L heel: Pain Intensity (Out of 10): 4 Overall Improvement % Improvement: 90 Objective Objective/Function: 4 degrees DF, full PF, full symmetrical inv and eversion . Strength is 4- ev/inv, 4+ Df, and 4+ PF on L. Walks without antalgia, steps normally, reciprocally without rail. Overall doing very well and willing to continue at home via HEP Goals Goal 1:: AROM to 3 DF in L ankle AROM without pain Goal Progress: Goal Met Goal 2:: walk without antalgia and steps without weakness in legs, no railing Goal Progress: Goal Met Goal 3:: I appropriate HEP to limit future problems Goal Progress: Goal Met Goal 4:: Foot and ankle 90% back to normal feeling adn acitvities Goal Progress: Goal Met Goal 5:: LEFS score 55 Goal Progress: Goal Met Plan Plan: d/c D/C Information d/c sentence: If there are questions or concerns regarding this patient's physical therapy, please feel free to call me at [phone]. Thank you for the referral of this patient. Sincerely, Bong Artis, DPT, OCS, CSCS Balance/Gait/Functional tests Balance/Special Test Scores Lower Extremity Functional Score: 80 Improvement % Improvement: 90
== END 2023-08-25 14:48 | disposition home or self-care (01) ==
LOC: PT 13:30
PROVIDERS: Referring Provider Podiatrist; Visit Provider Podiatrist
DX: M72.2 Plantar fascial fibromatosis (principal)
CPT/HCPCS: 97110; 97140; 97161; 97164

== ENCOUNTER → 2024-01-26 | Outpatient (CLI) | payer MEDICARE, MEDICAID, SELFPAY ==
[2024-01-26 17:11] LABS: Absolute Lymphocyte Count 2.32 X10^3/uL (0.83-4.51); Absolute Neutrophil Count 6.4 X10^3/uL (2.0-7.7); Basophil# 0.06 X10^3/uL; Basophil% 0.6 % (0-1); Eosinophils% 1.1 % (0-5); Hematocrit 42.8 % (37-47); Hemoglobin 14.1 g/dL (12.0-15.0); Lymphocyte # 2.32 X10^3/ul (0.83-4.51); Lymphocyte % 24.4 % (19-41); Mean Corp Hgb Conc 32.9 g/dL (32-36); Mean Corpuscular Hgb 28.8 pg (27.0-32.0); Mean Corpuscular Volume 87.5 fL (81-99); Mean Platelet Vol. 10.9 fl (6.2-12.0); Monocyte# 0.57 X10^3/uL; NRBC Flagged by Analyzer 0 % (0-5); Neutrophil # 6.43 X10^3/uL (2.7-7.7); Neutrophil % 67.6 % (47-70); Platelet Count 283 K/mm3 (150-450); RBC Distribution Width SD 42.1 fl (35.1-43.9); Red Blood Count 4.89 M/mm3 (4.2-5.4); White Blood Count 9.5 K/mm3 (4.4-11.0)
[2024-01-26 17:32] LABS: ALB/GLOB Ratio 0.8 RATIO (0.9-2.4); AST(SGOT) 19 U/L (15-37); Alanine Aminotransfer ALT/SGPT 28 U/L (13-56); Albumin, Serum 3.8 g/dL (3.2-5.0); Alkaline Phosphatase 76 U/L (45-117); Anion Gap 7 (5-15); BUN 12 mg/dL (7-18); BUN/Creat Ratio 13.6 RATIO (10-20); Calcium,Total 9.4 mg/dL (8.5-10.1); Chloride 107 mmol/L (98-107); Creatinine, Serum 0.88 mg/dL (0.55-1.02); EST Glomerular Filtration Rate 71 mL/min (>60); Est Glom Filt Rate - Afr Amer 86 mL/min (>60); Globulin 4.7 g/dL (2.2-4.2); Glucose 108 mg/dL (74-106); Potassium 4.2 mmol/L (3.5-5.1); Protein, Total 8.5 g/dL (6.4-8.2); Sodium Level 137 mmol/L (136-145)
== END | disposition home or self-care (01) ==
LOC: VSLAB 13:37
PROVIDERS: PCP Nurse Practitioner Family; Visit Provider Nurse Practitioner Family
DX: I10 Essential (primary) hypertension (principal)
CPT/HCPCS: 36415; 80053; 84443; 85025

== ENCOUNTER 2024-06-30 14:11 | Emergency (ER) | payer MEDICARE, MEDICAID, SELFPAY ==
[2024-06-30 14:13] VITALS: BP 139/99; PULSE 92; RESP 14; TEMP 36.2; O2SAT 98; BMI 42.5
--- NOTE | 2024-06-30 14:22 | RAD_ITS ---
EXAM: XR Right Wrist Complete, 3 or More Views CLINICAL INDICATION: WRIST INJURY FROM FALL TECHNIQUE: Frontal, lateral and oblique views of the right wrist. COMPARISON: No relevant prior studies available. FINDINGS: BONES/JOINTS: See below. SOFT TISSUES: Soft tissue swelling without acute fracture. No radiopaque foreign body. RAD/Wrist min 3 Views IMPRESSION: 1. Soft tissue swelling without acute fracture. 2. If symptoms persist, further evaluation with CT is recommended. Reading Location: [facility]
--- NOTE | 2024-06-30 15:30 | EDS_ITS ---
HPI History of Present Illness HPI Narrative: Patient presents with right wrist injury that began last night. Patient states she tripped and fell while walking. Patient states she landed on her knees and right wrist. Patient states her pain is worse today. Patient describes it as aching. Patient states nothing makes it worse and nothing makes it better. Patient admits to some tingling into her fingers. Patient denies any weakness. Patient denies any head injury or loss of consciousness. Patient denies any other injuries. Chief Complaint: Upper Extremity Injury Informant: patient Occured/Mechanism Mechanism/Context: Yes fall and Yes same level fall Onset/Context/Timing Onset: Yesterday Context: Sudden Onset Timing: Continuous Quality of Pain: Aching Location: Right wrist Worsened by: Nothing Relieved by: Nothing Associated Symptoms Associated Symptoms: Positive for Parasthesia; Negative for Weakness or Loss of Funtion PFSH [facility] Medical History Panic attack Ambulates with cane Dietary restriction Non-smoker Wears glasses Anemia Injury of head and neck Restless legs Shortness of breath on exertion Severe anemia GERD (gastroesophageal reflux disease) Asthma Depression Hypertension Home Medications ?Medication ?Instructions ?Recorded ?Last Taken ?Type metoprolol tartrate 25 mg tablet 25 mg PO DAILY BP 05/16/20 History cholecalciferol (vitamin D3) 50 2,000 unit PO DAILY 2 Days Ago History mcg (2,000 unit) capsule ~05/15/20 sertraline 50 mg tablet (Zoloft) 50 mg PO DAILY DEPRES SANDOVAL 02/09/20 05/16/20 History ferrous sulfate 325 mg (65 mg 325 mg PO DAILY 07/09/20 Unknown History iron) tablet nystatin 100,000 unit/gram topical 1 applic topical DA CHARLENE #30 grams 03/27/24 Unknown Rx powder Allergy/AdvReac Type Severity Reaction Status Date / Time No Known Allergies Allergy Verified 06/30/24 14:12 Family History Grandmother CHF (congestive heart failure) Mother Cancer Thyroid disorder Father Cancer Surgical History S/P laparoscopic assisted vaginal hysterectomy (LAVH) (~07/16/20) H/O dilation and curettage History of hysteroscopy (~05/18/20) H/O tubal ligation Cholecystectomy planned Social History Smoking Status: Never smoker alcohol intake: never substance use type: does not use caffeine: Yes what type of physical activity do you participate in: walking seatbelt use: always do you feel safe at home: Yes additional social history: single- disability ROS ROS ED Constitutional Constitutional ED: Denies chills or fever(s) Eyes Eyes: Denies blurry vision or change in vision ENT ENT ED: Denies rhinorrhea or sore throat Cardiovascular Cardiovascular: Denies chest pain or palpitations Respiratory/Chest Respiratory/Chest: Denies cough or dyspnea Gastrointestinal Gastrointestinal: Denies nausea or vomiting Genitourinary Genitourinary ED: Denies dysuria or hematuria Musculoskeletal Musculoskeletal: Denies back pain or neck pain Integumentary Denies abscess or rash Neurologic Neurologic: Denies headache(s) or weakness Allergic/Immunologic Allergic/Immunologic ED: Denies mouth swelling or urticaria EXAM Physical Exam Const Vital Signs: 06/30/24 14:13 Temperature 97.1 F L Temperature Source Temporal Pulse Rate 92 Respiratory Rate 14 Blood Pressure 139/99 H Blood Pressure Mean 112 Pulse Ox 98 Oxygen Delivery Method Room Air Positive well nourished and well developed Constitutional Narrative: BMI is 42.6 General Appearance ED: well developed and NAD HEENT Reports moist mucous membranes Neck full ROM and supple Extremity Extremity Narrative: There is diffuse tenderness over the right wrist. There is mild tenderness over the anatomic snuffbox. There is no edema or ecchymosis. There is no bony crepitance or step-off noted. Range of motion was limited in all motions of the right wrist secondary to pain. Radial pulses are equal bilaterally. Sensation was intact to light touch in all digits. Capillary refill was less than 2 seconds in all digits. Neuro oriented x3, CN's II-XII intact bilaterally, moves all extremities, no focal motor deficits and no sensory deficits noted Sensorium / Orientation: alert Motor Exam: strength 5/5 throughout MDM MDM MDM Narrative Medical decision making narrative: Differential diagnosis includes sprain, fracture, contusion. X-rays of the right wrist will be obtained to assess for fracture. Radiography Diagnostic Testing: Clinical Impression(s) from Imaging Studies Wrist X-Ray 06/30/24 14:22 IMPRESSION: 1. Soft tissue swelling without acute fracture. 2. If symptoms persist, further evaluation with CT is recommended. Reading [facility] X-rays of the right wrist were obtained. There are 3 views. On my independent interpretation, there is no acute fracture. There are some degenerative changes noted. There is mild soft tissue swelling noted. Radiologist also interpreted the x-rays and agrees. Treatment and Re-Evaluation Narrative: Patient was advised of her findings. Patient was given a thumb spica splint. Patient was instructed to ice and elevate the right wrist. Patient was instructed to follow-up with her primary care physician in 5 to 7 days. Patient was advised that there could be an occult scaphoid fracture that may not show up initially. Patient was advised that if her symptoms persist she may need repeat x-ray. Patient understood and was agreeable with the plan. All questions were answered. Discharge Plan Triage Chief Complaint: Upper Extremity Injury ED Provider: Bong Ambrosio Dx/Rx/DC Orders Clinical Impression: Right wrist sprain, Fall Instructions: ED Wrist Sprain Prescriptions: No Action nystatin 100,000 unit/gram powder 1 applic topical DAILY Qty: 30 3RF metoprolol tartrate 25 MG tablet 25 mg PO DAILY sertraline [Zoloft] 50 MG tablet 50 mg PO DAILY cholecalciferol (vitamin D3) 50 MCG capsule 2,000 unit PO DAILY ferrous sulfate 325 MG tablet 325 mg PO DAILY Primary Care Provider: Ivelisse Perales Referrals: Ivelisse Perales, STILL OPERATOR BATCH OR CONTINUOUS-C [Primary Care Provider] - 5-7 Days Print Language: Lithuanian Disposition Disposition: Home, Self Care
[2024-06-30] MEDS: Ibuprofen 600 MG Tablet PO (15:44)
[2024-06-30 16:01] VITALS: BP 139/99; PULSE 92; RESP 14; TEMP 36.2; O2SAT 98
== END 2024-06-30 16:02 | disposition home or self-care (01) ==
PROVIDERS: Emergency Provider Emergency Medicine; PCP Nurse Practitioner Family; Visit Provider Emergency Medicine
DX: S63.91XA Sprain of unspecified part of right wrist and hand, initial encounter (principal); K21.9 Gastro-esophageal reflux disease without esophagitis; J45.909 Unspecified asthma, uncomplicated; I10 Essential (primary) hypertension; W01.0XXA Fall on same level from slipping, tripping and stumbling without subsequent striking against object, initial encounter
CPT/HCPCS: 73110; 99283

== ENCOUNTER → 2024-08-24 | Outpatient (CLI) | payer MEDICARE, SELFPAY ==
--- NOTE | 2024-08-24 13:45 | BI_ITS ---
EXAM: SCRN MAMM (CAD)W/VIMAL BILAT DATE: 08/24/2024 CLINICAL HISTORY: F, Age 54 y/o , SCREENING FOR BREAST CANCER Mother with breast cancer. BREAST CANCER RISK ASSESSMENT: Not assessed. TECHNIQUE: Bilateral screening digital breast tomosynthesis with 2D and 3D images. Computer aided detection. COMPARISON: Prior exam(s) dated August 24, 2023.. FINDINGS: TISSUE DENSITY: The breast tissue is almost entirely fatty. Bilateral Breast Mammographic Findings: No significant masses, calcifications or other abnormalities are identified. No suspicious masses, areas of developing architectural distortion, or suspicious calcifications. There has been no significant interval change. BI/SCRN MAMM (CAD)W/VIMAL BILAT IMPRESSION: OVERALL FINAL ASSESSMENT: BIRADS 1 NEGATIVE RECOMMENDATION: Routine annual follow-up in 1 Year A letter with findings and recommendations will be mailed to the patient. Reading Location: [id number]
== END | disposition home or self-care (01) ==
LOC: OPBI 13:44
PROVIDERS: PCP Nurse Practitioner Family; Referring Provider Nurse Practitioner Women's Health; Visit Provider Nurse Practitioner Women's Health
DX: Z12.31 Encounter for screening mammogram for malignant neoplasm of breast (principal)
CPT/HCPCS: 77063; 77067

== ENCOUNTER → 2024-09-13 | Outpatient (CLI) | payer MEDICARE, SELFPAY ==
[2024-09-13 17:07] LABS: Absolute Lymphocyte Count 2.79 X10^3/uL (0.83-4.51); Absolute Neutrophil Count 5.6 X10^3/uL (2.0-7.7); Basophil# 0.07 X10^3/uL; Basophil% 0.8 % (0-1); Eosinophils% 1.1 % (0-5); Hematocrit 42.8 % (37-47); Hemoglobin 14.1 g/dL (12.0-15.0); Lymphocyte # 2.79 X10^3/ul (0.83-4.51); Lymphocyte % 30.4 % (19-41); Mean Corp Hgb Conc 32.9 g/dL (32-36); Mean Corpuscular Hgb 28.8 pg (27.0-32.0); Mean Corpuscular Volume 87.3 fL (81-99); Monocyte# 0.64 X10^3/uL; NRBC Flagged by Analyzer 0 % (0-5); Neutrophil # 5.55 X10^3/uL (2.7-7.7); Neutrophil % 60.5 % (47-70); Platelet Count 293 K/mm3 (150-450); RBC Distribution Width SD 41.1 fl (35.1-43.9); White Blood Count 9.2 K/mm3 (4.4-11.0)
[2024-09-13 17:13] LABS: Microalbumin,Random Urine 12.2 mg/L (NO RANGE EST.)
[2024-09-13 17:14] LABS: AST(SGOT) 34 U/L (<=31); Alanine Aminotransfer ALT/SGPT 24 U/L (<=34); Albumin, Serum 4.3 g/dL (3.5-5.0); Alkaline Phosphatase 64 U/L (35-104); Anion Gap 14 (5-15); BUN 13 mg/dL (4-19); BUN/Creat Ratio 15.5 RATIO (10-20); Carbon Dioxide 17.7 mmol/L (21.0-32.0); Chloride 103 mmol/L (98-108); Cholesterol 216 mg/dL (<=200); Creatinine, Serum 0.86 mg/dL (0.70-1.20); EST Glomerular Filtration Rate 80 (>60); Globulin 4.2 g/dL (2.2-4.2); Glucose 94 mg/dL (70-99); High Density Lipoprotein 33 mg/dL; Low Density Lipoprotein Calc. 143 mg/dL; Potassium 4.5 mmol/L (3.3-5.1); Protein, Total 8.6 g/dL (5.9-8.4); Sodium Level 134 mmol/L (133-145); Total Bilirubin 0.55 mg/dL (0.00-1.30); Triglycerides 198 mg/dL; Very Low Density Lipoprotein 40 mg/dL (5-40); cholesterol:hdl ratio screen 6.53
== END | disposition home or self-care (01) ==
LOC: VSLAB 13:49
PROVIDERS: PCP Nurse Practitioner Family; Visit Provider Nurse Practitioner Family
DX: I10 Essential (primary) hypertension (principal); E66.9 Obesity, unspecified
CPT/HCPCS: 36415; 80053; 80061; 82043; 84443; 85025